=== PATIENT | female | born 1975 | race Caucasian/White ===

== ENCOUNTER 2017-11-14 19:40 | Observation (INO) | payer BC ==
--- NOTE | 2017-11-14 19:43 | EDM.PDOC ---
ED HPI GENERAL MEDICAL PROBLEM - General Stated Complaint: VOMITING, DEHYDRATED, SHAKES Time Seen by Provider: 11/14/17 19:42 Source of Information: Reports: Patient History Limitations: Reports: No Limitations - History of Present Illness INITIAL COMMENTS - FREE TEXT/NARRATIVE: HISTORY AND PHYSICAL: History of present illness: 42-year-old female presenting emergency department with 2 days of nausea and vomiting with past medical history of hypertension. Patient states around noon yesterday she began to have nausea with associated vomiting. Reports multiple episodes of vomiting yesterday as well as today. States there is no blood in it but it is bile colored. She has had associated chills without fever some mild shortness of breath and a sore throat with epigastric pain/heartburn. Tonight she came to the emergency department primarily because she was feeling more dizzy and blurry and has been unable to keep fluids down. She's been trying to taken Gatorade as well as water but states that after she has 1 drink she becomes nauseous and throws it back up. States that she had roast yesterday as well as her and she is the only nail. She works at home and denies any foreign travel or changes in diet. Past medical history of hypertension with no new medications. Has an allergy to penicillins which she states is hives. 2100- CBC unremarkable other than increased hemoglobin most likely secondary to hemoconcentration from dehydration. CMP did reveal hyponatremia of 130 with a bicarbonate low at 7.3 and acute kidney injury with a creatinine as 2.5. 0045- Repeat BMP showed improved h hyponatremia of 135, bicarbonate 9.2, creatinine 1.8. Patient also received Phenergan secondary to continued nausea with vomiting. Lactate pending as well as UA Review of systems: As per history of present illness and below otherwise all systems reviewed and negative. Past medical history: As per history of present illness and as reviewed below otherwise noncontributory. Surgical history: As per history of present illness and as reviewed below otherwise noncontributory. Social history: No reported history of drug or alcohol abuse. Family history: As per history of present illness and as reviewed below otherwise noncontributory. Physical exam: HEENT: Atraumatic, normocephalic, pupils reactive, negative for conjunctival pallor or scleral icterus, mucous membranes moist, throat clear, neck supple, nontender, trachea midline. Lungs: Clear to auscultation, breath sounds equal bilaterally, chest nontender. Heart: S1S2, regular, negative for clicks, rubs, or JVD. Abdomen: Soft, nondistended, mild upper right quadrant and moderate epigastric tenderness on patient. Negative for masses or hepatosplenomegaly. Negative for costovertebral tenderness. Pelvis: Stable nontender. Genitourinary: Deferred. Rectal: Deferred. Extremities: Atraumatic, negative for cords or calf pain. Neurovascular unremarkable. Neuro: Awake, alert, oriented. Cranial nerves II through XII unremarkable. Cerebellum unremarkable. Motor and sensory unremarkable throughout. Exam nonfocal. Diagnostics: CBC, CMP, H. pylori Therapeutics: 1 L normal saline 3, Zofran 8 mg IV 1, GI cocktail, 80 mg Protonix IV 1, Phenergan 25 mg IM 1 Impression: Nausea and vomiting Hyponatremia-130 Acute kidney injury- 2.6 Cr Plan: Please see above H&P. After 3 L of normal saline labs had improved however patient still is hyponatremic with a sodium of 135. Acute kidney injury most likely secondary to volume depletion/dehydration had improved with a creatinine of 1.8 however patient's bicarbonate improved but only to 9.2. Secondary to all the above I did call Dr. Fitch, hospitalist, who accepted the patient for observation status for acute kidney injury, hyponatremia, and moderate dehydration. Abdominal Pain Score (Numeric/FACES): 5 - Related Data Allergies Allergy/AdvReac Type Severity Reaction Status Date / Time Penicillins Allergy Hives Verified 11/14/17 19:57 Home Meds: Home Meds Unknown Bp Med 11/14/17 [History] ED ROS GENERAL - Review of Systems Review Of Systems: ROS reveals no pertinent complaints other than HPI. ED EXAM, GENERAL - Physical Exam Exam: See Below Course - Vital Signs Last Recorded V/S: Last Vital Signs Temp 96.9 F 11/14/17 19:54 Pulse 102 H 11/15/17 00:06 Resp 16 11/15/17 00:06 BP 129/80 11/15/17 00:06 Pulse Ox 97 11/15/17 00:06 - Orders/Labs/Meds Orders: Active Orders 24 hr Category Date Time Status CULTURE URINE [RM] Stat Lab 11/15/17 00:49 Ordered LACTATE WITH REFLEX [BG] Stat Lab 11/15/17 00:48 Ordered UA W/MICROSCOPIC [URIN] Stat Lab 11/15/17 00:49 Ordered Sodium Chloride 0.9% [Normal Saline] 1,000 ml Med 11/15/17 00:09 Active IV .Bolus Medication Orders Sodium Chloride (Normal Saline) 1,000 mls @ 999 mls/hr IV .Bolus ONE Stop: 11/15/17 01:09 Last Admin: 11/15/17 00:29 Dose: 999 mls/hr Labs: Laboratory Tests 11/14/17 11/14/17 11/14/17 Range/Units 20:08 20:08 20:08 WBC 9.99 (4.0-11.0) K/uL RBC 4.88 (4.30-5.90) M/uL Hgb 17.2 H (12.0-16.0) g/dL Hct 52.5 H (36.0-46.0) % MCV 107.6 H (80.0-98.0) fL MCH 35.2 H (27.0-32.0) pg MCHC 32.8 (31.0-37.0) g/dL RDW Std Deviation 52.5 (28.0-62.0) fl RDW Coeff of Ilya 13 (11.0-15.0) % Plt Count 191 (150-400) K/uL MPV 9.80 (7.40-12.00) fL Neut % (Auto) 90.4 H (48.0-80.0) % Lymph % (Auto) 5.2 L (16.0-40.0) % Nicholas % (Auto) 4.2 (0.0-15.0) % Eos % (Auto) 0.0 (0.0-7.0) % Baso % (Auto) 0.2 (0.0-1.5) % Neut # (Auto) 9.0 H (1.4-5.7) K/uL Lymph # (Auto) 0.5 L (0.6-2.4) K/uL Nicholas # (Auto) 0.4 (0.0-0.8) K/uL Eos # (Auto) 0.0 (0.0-0.7) K/uL Baso # (Auto) 0.0 (0.0-0.1) K/uL Nucleated RBC % 0.0 /100WBC Nucleated RBCs # 0 K/uL Sodium 130 L (136-145) mmol/L Potassium 5.4 H (3.5-5.1) mmol/L Chloride 84 L (98-107) mmol/L Carbon Dioxide 7.3 L (21.0-32.0) mmol/L BUN 26 H (7.0-18.0) mg/dL Creatinine 2.5 H (0.6-1.0) mg/dL Est Cr Clr Drug Dosing 24.50 mL/min Estimated GFR (MDRD) 21.2 ml/min Glucose 279 H (74-106) mg/dL Calcium 9.5 (8.5-10.1) mg/dL Total Bilirubin 0.8 (0.2-1.0) mg/dL AST 113 H (15-37) IU/L ALT 123 H (14-63) IU/L Alkaline Phosphatase 94 (46-116) U/L Total Protein 10.1 H (6.4-8.2) g/dL Albumin 5.4 H (3.4-5.0) g/dL Globulin 4.7 H (2.0-3.5) g/dL Albumin/Globulin Ratio 1.2 L (1.3-2.8) H. pylori IgG Antibody NEGATIVE (NEG) 11/14/17 Range/Units 23:32 WBC (4.0-11.0) K/uL RBC (4.30-5.90) M/uL Hgb (12.0-16.0) g/dL Hct (36.0-46.0) % MCV (80.0-98.0) fL MCH (27.0-32.0) pg MCHC (31.0-37.0) g/dL RDW Std Deviation (28.0-62.0) fl RDW Coeff of Ilya (11.0-15.0) % Plt Count (150-400) K/uL MPV (7.40-12.00) fL Neut % (Auto) (48.0-80.0) % Lymph % (Auto) (16.0-40.0) % Nicholas % (Auto) (0.0-15.0) % Eos % (Auto) (0.0-7.0) % Baso % (Auto) (0.0-1.5) % Neut # (Auto) (1.4-5.7) K/uL Lymph # (Auto) (0.6-2.4) K/uL Nicholas # (Auto) (0.0-0.8) K/uL Eos # (Auto) (0.0-0.7) K/uL Baso # (Auto) (0.0-0.1) K/uL Nucleated RBC % /100WBC Nucleated RBCs # K/uL Sodium 135 L (136-145) mmol/L Potassium 4.9 (3.5-5.1) mmol/L Chloride 98 (98-107) mmol/L Carbon Dioxide 9.2 L (21.0-32.0) mmol/L BUN 22 H (7.0-18.0) mg/dL Creatinine 1.8 H (0.6-1.0) mg/dL Est Cr Clr Drug Dosing 34.02 mL/min Estimated GFR (MDRD) 31.0 ml/min Glucose 197 H (74-106) mg/dL Calcium 7.2 L (8.5-10.1) mg/dL Total Bilirubin (0.2-1.0) mg/dL AST (15-37) IU/L ALT (14-63) IU/L Alkaline Phosphatase (46-116) U/L Total Protein (6.4-8.2) g/dL Albumin (3.4-5.0) g/dL Globulin (2.0-3.5) g/dL Albumin/Globulin Ratio (1.3-2.8) H. pylori IgG Antibody (NEG) Meds: Medications Generic Name Dose Route Start Last Admin Trade Name Freq PRN Reason Stop Dose Admin Sodium Chloride 1,000 mls @ 999 mls/hr 11/15/17 00:09 11/15/17 00:29 Normal Saline IV 11/15/17 01:09 999 mls/hr .Bolus ONE Administration Discontinued Medications Generic Name Dose Route Start Last Admin Trade Name Freq PRN Reason Stop Dose Admin Al Hydroxide/Mg Hydroxide 15 0 ml 11/14/17 20:03 11/14/17 20:21 ml/ Lidocaine HCl 5 ml PO 11/14/17 20:04 15 each ONETIME ONE Administration Sodium Chloride 1,000 mls @ 999 mls/hr 11/14/17 20:02 11/14/17 20:20 Normal Saline IV 11/14/17 21:02 999 mls/hr STAT ONE Administration Sodium Chloride 1,000 mls @ 999 mls/hr 11/14/17 20:57 11/14/17 21:03 Normal Saline IV 11/14/17 21:57 999 mls/hr .BOLUS ONE Administration Ondansetron HCl 8 mg 11/14/17 20:02 11/14/17 20:20 Zofran IVPUSH 11/14/17 20:03 8 mg ONETIME ONE Administration Pantoprazole Sodium 80 mg 11/14/17 21:22 11/14/17 21:55 Protonix Iv IVPUSH 11/14/17 21:23 80 mg .BOLUS ONE Administration Promethazine HCl 25 mg 11/14/17 21:53 11/14/17 22:06 Phenergan IM 11/14/17 21:54 25 mg ONETIME ONE Administration Departure - Departure Time of Disposition: 00:59 Disposition: Admitted As Inpatient 67 Condition: Fair Clinical Impression: Hyponatremia, Moderate dehydration Acute kidney failure Qualifiers: Acute renal failure type: unspecified Qualified Code(s): N17.9 - Acute kidney failure, unspecified Nausea and vomiting Qualifiers: Vomiting type: unspecified Vomiting Intractability: non-intractable Qualified Code(s): R11.2 - Nausea with vomiting, unspecified - Discharge Information Referrals: Segun Jameson MD [Primary Care Provider] - - My Orders Last 24 Hours: My Active Orders 11/15/17 00:09 Sodium Chloride 0.9% [Normal Saline] 1,000 ml IV .Bolus 11/15/17 00:48 LACTATE WITH REFLEX [BG] Stat 11/15/17 00:49 CULTURE URINE [RM] Stat UA W/MICROSCOPIC [URIN] Stat - Assessment/Plan Last 24 Hours: My Active Orders 11/15/17 00:09 Sodium Chloride 0.9% [Normal Saline] 1,000 ml IV .Bolus 11/15/17 00:48 LACTATE WITH REFLEX [BG] Stat 11/15/17 00:49 CULTURE URINE [RM] Stat UA W/MICROSCOPIC [URIN] Stat
[2017-11-14] MEDS ORDERED: Ondansetron 4 MG/2 ML SDV IVPUSH ONE (20:02)
[2017-11-14] MEDS ORDERED: Sodium Chloride 0.9% 1,000 ML IV ONE ×2 (20:02→20:57)
[2017-11-14] MEDS ORDERED: Alum Hydrox/Mag Hydrox/Simeth 15 ML, Lidocaine 2% 5 ML PO ONE ×2 (20:03)
[2017-11-14] MEDS ORDERED: Pantoprazole 40 MG Vial IVPUSH ONE (21:22)
[2017-11-14] MEDS ORDERED: Promethazine 25 MG/ML SDV IM ONE (21:53)
[2017-11-15] MEDS ORDERED: Sodium Chloride 0.9% 1,000 ML IV ONE (00:09)
[2017-11-15] MEDS ORDERED: Calcium Carbonate 500 MG Tab.Chew PO PRN (01:43)
[2017-11-15] MEDS ORDERED: Ondansetron 4 MG/2 ML SDV IVPUSH PRN (01:43)
[2017-11-15] MEDS: Sodium Chloride 0.9% 1,000 ML IV SCH ×2 (02:22→10:03)
--- NOTE | 2017-11-15 12:20 | PCM.HP ---
H&P History of Present Illness - General Date of Service: 11/15/17 Admit Problem/Dx: Admission Diagnosis/Problem Admission Diagnosis/Problem Hyponatremia - History of Present Illness Initial Comments - Free Text/Narative: 42 yo female who presents with three day history of nausea and poor oral intake. She wasn't able to keep anything down. She had a 15 hour history of vomiting. She denies any abdominal pain, diarrhea, or blood in vomit or stool. She was seen in the ED and noted to be hyponatremic with sodium of 130 and a creatinine of 2.5. She denies any recent alcohol use. Abdominal Pain Score (Numeric/FACES): 5 - Related Data Allergies/Adverse Reactions: Allergies Allergy/AdvReac Type Severity Reaction Status Date / Time Penicillins Allergy Hives Verified 11/14/17 19:57 Home Medications: Home Meds Unknown Bp Med 11/14/17 [History] Omeprazole Magnesium [Prilosec Otc] 20 mg PO DAILY #30 tablet. 11/15/17 [Rx] Past Medical History Cardiovascular History: Reports: Hypertension - Infectious Disease History Infectious Disease History: Reports: Chicken Pox Social & Family History - Tobacco Use Smoking Status *Q: Current Every Day Smoker Years of Tobacco use: 20 Packs/Tins Daily: 1 Used Tobacco, but Quit: No Second Hand Smoke Exposure: Yes - Caffeine Use Caffeine Use: Reports: Coffee, Energy Drinks - Recreational Drug Use Recreational Drug Use: No H&P Review of Systems - Review of Systems: Review Of Systems: ROS reveals no pertinent complaints other than HPI. Exam - Vital Signs Vital Signs: Last Vital Signs Temp 37.3 C 11/15/17 08:00 Pulse 84 11/15/17 08:00 Resp 16 11/15/17 08:00 BP 141/78 H 11/15/17 08:00 Pulse Ox 98 11/15/17 08:00 Weight: 62.006 kg - Exam General: Alert, Oriented HEENT: Posterior Pharynx Clear Neck: Supple, Trachea Midline Lungs: Clear to Auscultation, Normal Respiratory Effort Cardiovascular: Regular Rate, Regular Rhythm GI/Abdominal Exam: Normal Bowel Sounds, Soft, Non-Tender Extremities: Non-Tender, No Pedal Edema Skin: Warm, Dry, Intact Neurological: Normal Gait. No: Focal Deficit - Patient Data Lab Results Last 24 hrs: Laboratory Results - last 24 hr 11/14/17 11/14/17 11/14/17 Range/Units 20:08 20:08 20:08 WBC 9.99 (4.0-11.0) K/uL RBC 4.88 (4.30-5.90) M/uL Hgb 17.2 H (12.0-16.0) g/dL Hct 52.5 H (36.0-46.0) % MCV 107.6 H (80.0-98.0) fL MCH 35.2 H (27.0-32.0) pg MCHC 32.8 (31.0-37.0) g/dL RDW Std Deviation 52.5 (28.0-62.0) fl RDW Coeff of Ilya 13 (11.0-15.0) % Plt Count 191 (150-400) K/uL MPV 9.80 (7.40-12.00) fL Neut % (Auto) 90.4 H (48.0-80.0) % Lymph % (Auto) 5.2 L (16.0-40.0) % Fa[place]ner % (Auto) 4.2 (0.0-15.0) % Eos % (Auto) 0.0 (0.0-7.0) % Baso % (Auto) 0.2 (0.0-1.5) % Neut # (Auto) 9.0 H (1.4-5.7) K/uL Lymph # (Auto) 0.5 L (0.6-2.4) K/uL Faulkner # (Auto) 0.4 (0.0-0.8) K/uL Eos # (Auto) 0.0 (0.0-0.7) K/uL Baso # (Auto) 0.0 (0.0-0.1) K/uL Add Manual Diff Neutrophils % (Manual) (48.0-80.0) % Band Neutrophils % % Lymphocytes % (Manual) (16.0-40.0) % Monocytes % (Manual) (0.0-15.0) % Nucleated RBC % 0.0 /100WBC Absolute Seg Neuts (1.4-5.7) Band Neutrophils # Lymphocytes # (Manual) (0.6-2.4) Monocytes # (Manual) (0.0-0.8) Nucleated RBCs # 0 K/uL Lactate (0.20-2.00) mmol/L Sodium 130 L (136-145) mmol/L Potassium 5.4 H (3.5-5.1) mmol/L Chloride 84 L (98-107) mmol/L Carbon Dioxide 7.3 L (21.0-32.0) mmol/L BUN 26 H (7.0-18.0) mg/dL Creatinine 2.5 H (0.6-1.0) mg/dL Est Cr Clr Drug Dosing 24.50 mL/min Estimated GFR (MDRD) 21.2 ml/min Glucose 279 H (74-106) mg/dL Calcium 9.5 (8.5-10.1) mg/dL Total Bilirubin 0.8 (0.2-1.0) mg/dL AST 113 H (15-37) IU/L ALT 123 H (14-63) IU/L Alkaline Phosphatase 94 (46-116) U/L Total Protein 10.1 H (6.4-8.2) g/dL Albumin 5.4 H (3.4-5.0) g/dL Globulin 4.7 H (2.0-3.5) g/dL Albumin/Globulin Ratio 1.2 L (1.3-2.8) Urine Color Urine Appearance Urine pH (5.0-8.0) Ur Specific [place] (1.001-1.035) Urine Protein (NEGATIVE) mg/dL Urine Glucose (UA) (NEGATIVE) mg/dL Urine Ketones (NEGATIVE) mg/dL Urine Occult Blood (NEGATIVE) Urine Nitrite (NEGATIVE) Urine Bilirubin (NEGATIVE) Urine Ictotest Urine Urobilinogen (<2.0) EU/dL Ur Leukocyte Esterase (NEGATIVE) Urine RBC (0-2/HPF) Urine WBC (0-5/HPF) Ur Epithelial Cells (NONE-FEW) Urine Bacteria (NEGATIVE) Urine Mucus (NONE-MOD) H. pylori IgG Antibody NEGATIVE (NEG) 11/14/17 11/15/17 11/15/17 Range/Units 23:32 01:28 03:42 WBC (4.0-11.0) K/uL RBC (4.30-5.90) M/uL Hgb (12.0-16.0) g/dL Hct (36.0-46.0) % MCV (80.0-98.0) fL MCH (27.0-32.0) pg MCHC (31.0-37.0) g/dL RDW Std Deviation (28.0-62.0) fl RDW Coeff of Ilya (11.0-15.0) % Plt Count (150-400) K/uL MPV (7.40-12.00) fL Neut % (Auto) (48.0-80.0) % Lymph % (Auto) (16.0-40.0) % Faulkner % (Auto) (0.0-15.0) % Eos % (Auto) (0.0-7.0) % Baso % (Auto) (0.0-1.5) % Neut # (Auto) (1.4-5.7) K/uL Lymph # (Auto) (0.6-2.4) K/uL Faulkner # (Auto) (0.0-0.8) K/uL Eos # (Auto) (0.0-0.7) K/uL Baso # (Auto) (0.0-0.1) K/uL Add Manual Diff Neutrophils % (Manual) (48.0-80.0) % Band Neutrophils % % Lymphocytes % (Manual) (16.0-40.0) % Monocytes % (Manual) (0.0-15.0) % Nucleated RBC % /100WBC Absolute Seg Neuts (1.4-5.7) Band Neutrophils # Lymphocytes # (Manual) (0.6-2.4) Monocytes # (Manual) (0.0-0.8) Nucleated RBCs # K/uL Lactate 0.9 (0.20-2.00) mmol/L Sodium 135 L (136-145) mmol/L Potassium 4.9 (3.5-5.1) mmol/L Chloride 98 (98-107) mmol/L Carbon Dioxide 9.2 L (21.0-32.0) mmol/L BUN 22 H (7.0-18.0) mg/dL Creatinine 1.8 H (0.6-1.0) mg/dL Est Cr Clr Drug Dosing 34.02 mL/min Estimated GFR (MDRD) 31.0 ml/min Glucose 197 H (74-106) mg/dL Calcium 7.2 L (8.5-10.1) mg/dL Total Bilirubin (0.2-1.0) mg/dL AST (15-37) IU/L ALT (14-63) IU/L Alkaline Phosphatase (46-116) U/L Total Protein (6.4-8.2) g/dL Albumin (3.4-5.0) g/dL Globulin (2.0-3.5) g/dL Albumin/Globulin Ratio (1.3-2.8) Urine Color YELLOW Urine Appearance CLEAR Urine pH 6.0 (5.0-8.0) Ur Specific [place] 1.025 (1.001-1.035) Urine Protein TRACE (NEGATIVE) mg/dL Urine Glucose (UA) NEGATIVE (NEGATIVE) mg/dL Urine Ketones >=80 (NEGATIVE) mg/dL Urine Occult Blood MODERATE (NEGATIVE) Urine Nitrite NEGATIVE (NEGATIVE) Urine Bilirubin MODERATE H (NEGATIVE) Urine Ictotest NEGATIVE Urine Urobilinogen 0.2 (<2.0) EU/dL Ur Leukocyte Esterase NEGATIVE (NEGATIVE) Urine RBC 0-1 (0-2/HPF) Urine WBC 0-2 (0-5/HPF) Ur Epithelial Cells FEW (NONE-FEW) Urine Bacteria FEW (NEGATIVE) Urine Mucus LIGHT (NONE-MOD) H. pylori IgG Antibody (NEG) 11/15/17 11/15/17 Range/Units 05:46 05:46 WBC 7.73 (4.0-11.0) K/uL RBC 3.54 L (4.30-5.90) M/uL Hgb 12.2 (12.0-16.0) g/dL Hct 37.3 (36.0-46.0) % MCV 105.4 H (80.0-98.0) fL MCH 34.5 H (27.0-32.0) pg MCHC 32.7 (31.0-37.0) g/dL RDW Std Deviation 50.7 (28.0-62.0) fl RDW Coeff of Ilya 13 (11.0-15.0) % Plt Count 138 L (150-400) K/uL MPV 9.50 (7.40-12.00) fL Neut % (Auto) (48.0-80.0) % Lymph % (Auto) (16.0-40.0) % Fa[place]ner % (Auto) (0.0-15.0) % Eos % (Auto) (0.0-7.0) % Baso % (Auto) (0.0-1.5) % Neut # (Auto) (1.4-5.7) K/uL Lymph # (Auto) (0.6-2.4) K/uL Fa[place]ner # (Auto) (0.0-0.8) K/uL Eos # (Auto) (0.0-0.7) K/uL Baso # (Auto) (0.0-0.1) K/uL Add Manual Diff YES Neutrophils % (Manual) 71 (48.0-80.0) % Band Neutrophils % 1 % Lymphocytes % (Manual) 18 (16.0-40.0) % Monocytes % (Manual) 10 (0.0-15.0) % Nucleated RBC % 0.0 /100WBC Absolute Seg Neuts 5.5 (1.4-5.7) Band Neutrophils # 0.1 Lymphocytes # (Manual) 1.4 (0.6-2.4) Monocytes # (Manual) 0.8 (0.0-0.8) Nucleated RBCs # 0 K/uL Lactate (0.20-2.00) mmol/L Sodium 131 L (136-145) mmol/L Potassium 4.8 (3.5-5.1) mmol/L Chloride 100 (98-107) mmol/L Carbon Dioxide 14.1 L (21.0-32.0) mmol/L BUN 14 (7.0-18.0) mg/dL Creatinine 1.3 H (0.6-1.0) mg/dL Est Cr Clr Drug Dosing 47.11 mL/min Estimated GFR (MDRD) 45.1 ml/min Glucose 145 H (74-106) mg/dL Calcium 7.3 L (8.5-10.1) mg/dL Total Bilirubin (0.2-1.0) mg/dL AST (15-37) IU/L ALT (14-63) IU/L Alkaline Phosphatase (46-116) U/L Total Protein (6.4-8.2) g/dL Albumin (3.4-5.0) g/dL Globulin (2.0-3.5) g/dL Albumin/Globulin Ratio (1.3-2.8) Urine Color Urine Appearance Urine pH (5.0-8.0) Ur Specific [place] (1.001-1.035) Urine Protein (NEGATIVE) mg/dL Urine Glucose (UA) (NEGATIVE) mg/dL Urine Ketones (NEGATIVE) mg/dL Urine Occult Blood (NEGATIVE) Urine Nitrite (NEGATIVE) Urine Bilirubin (NEGATIVE) Urine Ictotest Urine Urobilinogen (<2.0) EU/dL Ur Leukocyte Esterase (NEGATIVE) Urine RBC (0-2/HPF) Urine WBC (0-5/HPF) Ur Epithelial Cells (NONE-FEW) Urine Bacteria (NEGATIVE) Urine Mucus (NONE-MOD) H. pylori IgG Antibody (NEG) Result Diagrams: 11/15/17 05:46 11/15/17 05:46 Problem List Initiated/Reviewed/Updated: Yes Orders Last 24hrs: Active Orders 24 hr Category Date Time Status Admission Status [Patient Status] [ADT] Stat ADT 11/15/17 01:40 Active Ready for Discharge [RC] PER UNIT ROUTINE Care 11/15/17 12:15 Ordered Regular Diet [DIET] Diet 11/15/17 Breakfast Active CULTURE URINE [RM] Stat Lab 11/15/17 03:42 Ordered UA W/MICROSCOPIC [URIN] Stat Lab 11/15/17 03:42 Ordered Calcium Carbonate [Tums] Med 11/15/17 01:43 Active 500 mg PO TID PRN Ondansetron [Zofran] Med 11/15/17 01:43 Active 4 mg IVPUSH Q4H PRN Sodium Chloride 0.9% [Normal Saline] 1,000 ml Med 11/15/17 01:45 Active IV ASDIRECTED Medication Orders Calcium Carbonate/Glycine (Tums) 500 mg PO TID PRN PRN Reason: Indigestion Last Admin: 11/15/17 03:44 Dose: 500 mg Sodium Chloride (Normal Saline) 1,000 mls @ 125 mls/hr IV ASDIRECTED JON Last Admin: 11/15/17 10:03 Dose: 125 mls/hr Infusion: 11/15/17 10:03 Dose: 125 mls/hr Admin: 11/15/17 02:22 Dose: 125 mls/hr Ondansetron HCl (Zofran) 4 mg IVPUSH Q4H PRN PRN Reason: Nausea/Vomiting Assessment/Plan Comment:: 42 yo female admitted for acute gastritis. She was treated with IV fluids and prn antiemetics. This morning she is feeling better, and her nausea has resolved. She is tolerating an oral diet and is requesting discharge. She was discharged home to have follow up with [facility].
== END 2017-11-15 13:55 | disposition home or self-care (01) ==
LOC: MW.ED 19:40 → MW.MS 11-15 01:40
PROVIDERS: ADMIT Internal Medicine; ATTEND Internal Medicine
DX: K29.00 Acute gastritis without bleeding (principal); I10 Essential (primary) hypertension; F17.210 Nicotine dependence, cigarettes, uncomplicated; E87.1 Hypo-osmolality and hyponatremia; E86.0 Dehydration; N17.9 Acute kidney failure, unspecified; Z79.899 Other long term (current) drug therapy; Z88.0 Allergy status to penicillin
CPT/HCPCS: 36415; 80048; 80053; 81001; 83605; 85025; 86677; 87086; 96361; 96372; 96374; 96375; 99285; A9270; C9113; J2405; J2550; J7040

== ENCOUNTER 2019-08-18 07:39 | Emergency (ER) | payer BC ==
--- NOTE | 2019-08-18 07:56 | EDM.PDOC ---
ED HPI GENERAL MEDICAL PROBLEM - General Chief Complaint: ENT Problem Stated Complaint: COUGH Time Seen by Provider: 08/18/19 07:50 Source of Information: Reports: Patient History Limitations: Reports: No Limitations - History of Present Illness INITIAL COMMENTS - FREE TEXT/NARRATIVE: This 43 year old female is presented to the ED with a chief complaint of coughing up yellow type sputum for two months. She complains of nausea and vomiting and can't keep any thing down for three days. She states that her mouth feels dry. She complains of generalized weakness. She complains of mild SOB. She denies any chest pain. She denies any other symptoms at this time. The patient states that she has not been able to hold down her lisinopril for two days due to vomiting. Onset: Gradual Duration: Chronic, Getting Worse (in that she is not able to hold down fluids or eat for three days.) Headache Pain Score (Numeric/FACES): 3 - Related Data Allergies Allergy/AdvReac Type Severity Reaction Status Date / Time Penicillins Allergy Hives Verified 08/18/19 08:02 Home Meds: Home Meds Omeprazole Magnesium [Prilosec Otc] 20 mg PO DAILY #30 tablet. 11/15/17 [Rx] Albuterol Sulfate [Albuterol Sulfate Hfa] 8.5 gm IH ASDIRECTED PRN 4 Days #1 hfa.aer.ad 08/18/19 [Rx] Benzonatate 100 mg PO BID PRN 6 Days #12 capsule 08/18/19 [Rx] Lisinopril [Zestril] 10 mg PO DAILY 08/18/19 [History] Ondansetron [Zofran ODT] 4 mg PO Q6H PRN 5 Days #20 tab.dis 08/18/19 [Rx] Past Medical History Cardiovascular History: Reports: Hypertension - Infectious Disease History Infectious Disease History: Reports: Chicken Pox Social & Family History - Caffeine Use Caffeine Use: Reports: Coffee, Energy Drinks ED ROS GENERAL - Review of Systems Review Of Systems: See Below Constitutional: Reports: Weakness, Decreased Appetite HEENT: Reports: Throat Pain (mild sore throat) Respiratory: Reports: Cough, Sputum (clear to yellow sputum for two months). Denies: Wheezing Cardiovascular: Reports: No Symptoms Endocrine: Reports: No Symptoms GI/Abdominal: Reports: Anorexia, Nausea, Vomiting. Denies: Black Stool, Bloody Stool, Diarrhea : Reports: No Symptoms Musculoskeletal: Reports: No Symptoms Skin: Reports: No Symptoms Neurological: Reports: No Symptoms ED EXAM, GENERAL - Physical Exam Exam: See Below Exam Limited By: No Limitations General Appearance: Alert, WD/WN, No Apparent Distress Eye Exam: Bilateral Eye: Normal Inspection, PERRL Ears: Normal External Exam, Normal Canal, Hearing Grossly Normal, Normal TMs Nose: Normal Inspection, Normal Mucosa, No Blood Throat/Mouth: Normal Inspection (except for dryness of the oral mucosa), Normal Voice, No Airway Compromise Head: Atraumatic, Normocephalic Neck: Normal Inspection, Supple Respiratory/Chest: No Respiratory Distress, Lungs Clear, Normal Breath Sounds, Chest Non-Tender Cardiovascular: Normal Peripheral Pulses, No Edema, No Gallop, No JVD, No Murmur , Tachycardia Peripheral Pulses: 3+: Radial (L), Radial (R), Dorsalis Pedis (L), Dorsalis Pedis (R) GI/Abdominal: Normal Bowel Sounds, Soft, Non-Tender, No Organomegaly, No Distention, No Abnormal Bruit, No Mass (Female) Exam: Deferred Rectal (Female) Exam: Deferred Back Exam: Normal Inspection Extremities: Normal Inspection, Normal Range of Motion Neurological: Alert, Oriented (times 4), Normal Reflexes, No Motor/Sensory Deficits Psychiatric: Normal Affect, Normal Mood Skin Exam: Warm, Dry, Normal Color, No Rash, Other (Tenting noted of the skin of the dorsum of the hands and skin of the forearm which is consistent with mild to moderate dehydration.) Lymphatic: No Adenopathy Course - Vital Signs Text/Narrative:: Review of chest X-ray both PA and lateral views are negative for acute pathology. I will hold the Labetalol for now in that her blood pressure is coming down as she is getting a normal saline bolus. Her pulse rate at 108 will also decrease with fluid replacement. The patient is doing much better after 2 liters of normal saline but although her pulse rate has lowered, it's still 100 beats/minutes. She has not urinated yet as well. She is still fluid behind and will receive a 3rd liter of normal saline. She states that she has received up to 6 liters of normal saline for dehydration. Last Recorded V/S: Last Vital Signs Temp 96.8 F L 08/18/19 07:59 Pulse 103 H 08/18/19 11:24 Resp 18 08/18/19 11:24 BP 159/111 H 08/18/19 11:24 Pulse Ox 99 08/18/19 11:24 - Orders/Labs/Meds Orders: Active Orders 24 hr Category Date Time Status Isolation [COMM] Routine Oth 08/18/19 08:04 Active Labs: Laboratory Tests 08/18/19 08/18/19 Range/Units 08:15 08:15 WBC 8.79 (4.0-11.0) K/uL RBC 4.28 L (4.30-5.90) M/uL Hgb 15.1 (12.0-16.0) g/dL Hct 46.4 H (36.0-46.0) % MCV 108.4 H (80.0-98.0) fL MCH 35.3 H (27.0-32.0) pg MCHC 32.5 (31.0-37.0) g/dL RDW Std Deviation 62.5 H (28.0-62.0) fl RDW Coeff of Ilya 16 H (11.0-15.0) % Plt Count 161 (150-400) K/uL MPV 9.60 (7.40-12.00) fL Neut % (Auto) 90.3 H (48.0-80.0) % Lymph % (Auto) 4.1 L (16.0-40.0) % [place] % (Auto) 5.5 (0.0-15.0) % Eos % (Auto) 0.0 (0.0-7.0) % Baso % (Auto) 0.1 (0.0-1.5) % Neut # (Auto) 7.9 H (1.4-5.7) K/uL Lymph # (Auto) 0.4 L (0.6-2.4) K/uL [place] # (Auto) 0.5 (0.0-0.8) K/uL Eos # (Auto) 0.0 (0.0-0.7) K/uL Baso # (Auto) 0.0 (0.0-0.1) K/uL Nucleated RBC % 0.0 /100WBC Nucleated RBCs # 0 K/uL Sodium 134 L (136-145) mmol/L Potassium 4.3 (3.5-5.1) mmol/L Chloride 89 L (98-107) mmol/L Carbon Dioxide 9.9 L (21.0-32.0) mmol/L BUN 10 (7.0-18.0) mg/dL Creatinine 1.4 H (0.6-1.0) mg/dL Est Cr Clr Drug Dosing 43.30 mL/min Estimated GFR (MDRD) 41.2 ml/min Glucose 249 H (74-106) mg/dL Calcium 8.7 (8.5-10.1) mg/dL Total Bilirubin 0.9 (0.2-1.0) mg/dL AST 189 H (15-37) IU/L ALT 75 H (14-63) IU/L Alkaline Phosphatase 109 (46-116) U/L Total Protein 9.7 H (6.4-8.2) g/dL Albumin 5.2 H (3.4-5.0) g/dL Globulin 4.5 H (2.6-4.0) g/dL Albumin/Globulin Ratio 1.2 (0.9-1.6) Meds: Medications Discontinued Medications Generic Name Dose Route Start Last Admin Trade Name Freq PRN Reason Stop Dose Admin Benzonatate 200 mg 08/18/19 09:20 08/18/19 09:47 Tessalon Perles PO 08/18/19 09:21 200 mg ONETIME ONE Administration Sodium Chloride 1,000 mls @ 1,000 mls/hr 08/18/19 08:03 08/18/19 08:11 Normal Saline IV 08/18/19 09:02 1,000 mls/hr .Bolus ONE Administration Sodium Chloride 1,000 mls @ 1,000 mls/hr 08/18/19 08:54 08/18/19 09:46 Normal Saline IV 08/18/19 09:53 1,000 mls/hr .Bolus ONE Administration Sodium Chloride 1,000 mls @ 1,000 mls/hr 08/18/19 10:59 08/18/19 11:22 Normal Saline IV 08/18/19 11:58 1,000 mls/hr .Bolus ONE Administration Labetalol HCl 20 mg 08/18/19 08:12 Normodyne IVPUSH 08/18/19 08:13 ONETIME ONE Protocol Omeprazole 20 mg 08/18/19 10:02 08/18/19 10:13 Omeprazole PO 08/18/19 10:03 20 mg ONETIME ONE Administration Ondansetron HCl 4 mg 08/18/19 08:06 08/18/19 08:11 Zofran IVPUSH 08/18/19 08:07 4 mg ONETIME ONE Administration Ondansetron HCl 4 mg 08/18/19 11:21 08/18/19 11:22 Zofran IVPUSH 08/18/19 11:22 4 mg ONETIME ONE Administration Ondansetron HCl Confirm 08/18/19 11:21 08/18/19 11:32 Zofran Administered 08/18/19 11:22 Not Given Dose 4 mg .ROUTE .STK-MED ONE Departure - Departure Time of Disposition: 12:46 Disposition: Home, Self-Care 01 Condition: Good Clinical Impression: Dehydration, Hypertension, essential Bronchitis, chronic Qualifiers: Chronic bronchitis type: unspecified Qualified Code(s): J42 - Unspecified chronic bronchitis - Discharge Information *PRESCRIPTION DRUG MONITORING PROGRAM REVIEWED*: Yes *COPY OF PRESCRIPTION DRUG MONITORING REPORT IN PATIENT BRIANNA: Yes Prescriptions: Albuterol Sulfate [Albuterol Sulfate Hfa] 8.5 gm IH ASDIRECTED PRN 4 Days #1 hfa.aer.ad PRN Reason: Dyspnea Benzonatate 100 mg PO BID PRN 6 Days #12 capsule PRN Reason: Cough Ondansetron [Zofran ODT] 4 mg PO Q6H PRN 5 Days #20 tab.dis PRN Reason: Nausea/Vomiting Instructions: Dehydration, Adult, [id number], Hypertension, Adult, Easy-to- Read, Chronic Bronchitis, Adult Referrals: Waqar Isidro MD [Primary Care Provider] - Forms: ED Department Discharge Additional Instructions: Take all medications as directed. Follow up with your PCP in the next two to four days. Drink plenty of clear liquids for the next 24-48 hours. Rest for the next 24 hours. Return to the ED if your condition gets worse or should you have any questions or concerns. The following information is given to patients seen in the emergency department who are being discharged to home. This information is to outline your options for follow-up care. We provide all patients seen in our emergency department with a follow-up referral. The need for follow-up, as well as the timing and circumstances, are variable depending upon the specifics of your emergency department visit. If you don't have a primary care physician on staff, we will provide you with a referral. We always advise you to contact your personal physician following an emergency department visit to inform them of the circumstance of the visit and for follow-up with them and/or the need for any referrals to a consulting specialist. The emergency department will also refer you to a specialist when appropriate. This referral assures that you have the opportunity for follow-up care with a specialist. All of these measure are taken in an effort to provide you with optimal care, which includes your follow-up. Under all circumstances we always encourage you to contact your private physician who remains a resource for coordinating your care. When calling for follow-up care, please make the office aware that this follow-up is from your recent emergency room visit. If for any reason you are refused follow-up, please contact the Emergency Department at and asked to speak to the emergency department charge nurse. Sepsis Event Note - Focused Exam Vital Signs: Vital Signs Temp Pulse Resp BP Pulse Ox 08/18/19 11:24 103 H 18 159/111 H 99 08/18/19 09:45 97 18 157/94 H 100 08/18/19 08:40 104 H 20 159/97 H 99 08/18/19 07:59 96.8 F L 108 H 18 182/109 H 100 Date Exam was Performed: 08/18/19 Time Exam was Performed: 12:46 - My Orders Last 24 Hours: My Active Orders 08/18/19 08:04 Isolation [COMM] Routine - Assessment/Plan Last 24 Hours: My Active Orders 08/18/19 08:04 Isolation [COMM] Routine
[2019-08-18] MEDS ORDERED: Sodium Chloride 0.9% 1,000 ML IV ONE ×3 (08:03→10:59)
[2019-08-18] MEDS ORDERED: Ondansetron 4 MG/2 ML SDV IVPUSH ONE ×2 (08:06→11:21)
[2019-08-18] MEDS: Labetalol 100 MG/20 ML MDV IVPUSH ONE ×2 (08:15→13:01)
[2019-08-18 08:45] LABS: CARBON DIOXIDE,CO2 9.9 mmol/L (21.0-32.0); POTASSIUM,K 4.3 mmol/L (3.5-5.1)
--- NOTE | 2019-08-18 08:48 | CR ---
Chest: 2 views of the chest were obtained. Comparison: No prior chest imaging is available. Heart size and mediastinum are normal. Lungs are clear with no acute parenchymal change. Disc space narrowing noted within the mid thoracic spine which appears old and is most likely developmental. No acute osseous finding is seen. Impression: 1. Nothing acute is appreciated on 2 view chest x-ray. Diagnostic code #2 This report was dictated in MDT
[2019-08-18] MEDS ORDERED: Benzonatate 100 MG Cap PO ONE (09:20)
[2019-08-18] MEDS ORDERED: Omeprazole 20 MG Cap.CR PO ONE (10:02)
[2019-08-18] MEDS ORDERED: Ondansetron 4 MG/2 ML SDV ONE (11:21)
== END 2019-08-18 13:01 | disposition home or self-care (01) ==
LOC: MW.ED 07:39
DX: J42 Unspecified chronic bronchitis (principal); E86.0 Dehydration; I10 Essential (primary) hypertension; Z88.0 Allergy status to penicillin; Z79.899 Other long term (current) drug therapy
CPT/HCPCS: 36415; 71046; 80053; 85025; 87804; 96361; 96374; 96376; 99284; A9270; J2405; J7030; J3490

== ENCOUNTER 2019-10-18 03:55 | Inpatient (IN) | payer BC ==
[2019-10-18] MEDS ORDERED: Sodium Chloride 0.9% 2.5 ML Syringe FLUSH PRN (04:12)
[2019-10-18] MEDS ORDERED: Ondansetron 4 MG/2 ML SDV IVPUSH ONE ×2 (04:12→05:18)
[2019-10-18] MEDS ORDERED: Sodium Chloride 0.9% 10 ML Syringe FLUSH PRN (04:12)
[2019-10-18] MEDS ORDERED: Sodium Chloride 0.9% 10 ML SDV IV PRN (04:12)
[2019-10-18] MEDS ORDERED: Lactated Ringers 1,000 ML IV ONE ×2 (04:12→04:26)
[2019-10-18] MEDS ORDERED: Alum Hydrox/Mag Hydrox/Simeth 15 ML, Lidocaine 2% 5 ML PO ONE ×4 (04:14→06:45)
--- NOTE | 2019-10-18 04:15 | EDM.PDOC ---
<Varun Hurt - Last Filed: 10/18/19 07:05> ED HPI GENERAL MEDICAL PROBLEM - General Chief Complaint: Gastrointestinal Problem Stated Complaint: NAUSEATED, DEHYDRATED, VOMITING, WEAK Time Seen by Provider: 10/18/19 04:00 Source of Information: Reports: Patient History Limitations: Reports: No Limitations - History of Present Illness INITIAL COMMENTS - FREE TEXT/NARRATIVE: 44-year-old female with a past medical history of multiple sclerosis (not on any MS specific medications including immunosuppression or steroids), hypertension, and GERD presenting with nausea, vomiting, back pain, and generalized weakness. Patient reports a 2-day history of incessant nausea and vomiting. At least 5 episodes of nonbloody emesis since midnight tonight. Denies hematemesis. Also reports feeling extremely dehydrated and very thirsty. Denies any fever, chills, chest discomfort, shortness of breath, neck stiffness, rash, abdominal pain, dysuria, urinary frequency, hematuria, recent travel, or sick contacts. No personal history of diabetes. back area Pain Score (Numeric/FACES): 3 - Related Data Allergies Allergy/AdvReac Type Severity Reaction Status Date / Time Penicillins Allergy Hives Verified 10/18/19 04:07 Home Meds: Home Meds Omeprazole Magnesium [Prilosec Otc] 20 mg PO DAILY #30 tablet. 11/15/17 [Rx] Ondansetron [Zofran ODT] 4 mg PO Q6H PRN 5 Days #20 tab.dis 08/18/19 [Rx] lisinopriL [Zestril] 10 mg PO DAILY 08/18/19 [History] Past Medical History Cardiovascular History: Reports: Hypertension Gastrointestinal History: Reports: GERD Neurological History: Reports: MS - Infectious Disease History Infectious Disease History: Reports: Chicken Pox - Past Surgical History Neurological Surgical History: Reports: None Social & Family History - Family History Family Medical History: Noncontributory - Caffeine Use Caffeine Use: Reports: Coffee, Energy Drinks ED ROS GENERAL - Review of Systems Review Of Systems: See Below Constitutional: Denies: Fever, Chills HEENT: Reports: No Symptoms Respiratory: Denies: Shortness of Breath Cardiovascular: Denies: Chest Pain Endocrine: Reports: Fatigue GI/Abdominal: Reports: Nausea, Vomiting. Denies: Abdominal Pain, Black Stool, Bloody Stool, Constipation, Diarrhea, Distension, Hematemesis, Hematochezia, Melena : Denies: Dysuria, Flank Pain, Hematuria, Urgency Musculoskeletal: Reports: Back Pain. Denies: Neck Pain Skin: Denies: Rash Neurological: Denies: Headache, Numbness Psychiatric: Reports: No Symptoms Hematologic/Lymphatic: Reports: No Symptoms Immunologic: Reports: No Symptoms ED EXAM, GI/ABD - Physical Exam Exam: See Below Text/Narrative:: Vital signs reviewed. Nursing notes reviewed. Constitutional: Awake, alert, non-distressed. Head: Normocephalic, atraumatic. Eyes: EOMI, conjunctiva normal, no discharge, no scleral icterus. Ears, Nose, Throat: External ears and nose normal, tacky oral mucosa. Cardiovascular: Tachycardic, 2+ radial pulse, capillary refill less than 2 seconds. Pulmonary: normal work of breathing, no accessory muscle use. Abdomen/GI: Soft, nontender, nondistended, no guarding or rigidity, no masses. No CVA tenderness Musculoskeletal: No deformities, mild bilateral low back pain Integumentary: Appropriate color for ethnicity, warm, dry, no pallor or jaundice , no rash. Neurologic: Alert, answering questions appropriately, normal speech, no facial droop, moving all extremities well. Psychiatric: Appropriate mood and affect, normal thought process. EKG INTERPRETATION EKG Interpretation Comments: 12-Lead ECG Interpretation Acquired: 4:35 AM Rhythm: Sinus tachycardia Rate: 112/min [place]: Normal Intervals: Normal Ectopy: None Ischemic Changes: None apparent RV Strain: No obvious RV strain pattern. ST Segments/T-Waves: No notable changes Interpretation: Unremarkable Course - Vital Signs Text/Narrative:: 44-year-old female presenting with intractable vomiting along with polydipsia and lower back pain. On arrival noted to be tachycardic to 120 and tachypneic, appears shaky and uncomfortable. IV access established and labs were sent. Started on IV fluids and IV Zofran. Blood glucose is elevated at 389. Venous blood gas returned showing a severe metabolic acidosis with pH 6.96 and a bicarb of 6. This is concerning for new onset diabetes, with diabetic ketoacidosis. Metabolic panel returned showing potassium of 5.8, anion gap of 36. Creatinine mildly elevated at 1.5. Hemoglobin A1c is curiously low at only 4.9. Phosphorus elevated at 5.8. Mildly elevated AST, ALT, and alkaline phosphatase. Lipase is within normal limits. CBC shows a leukocytosis with a neutrophilic predominance. Acetaminophen, salicylates, and ethyl alcohol are all negative. test is negative. 5:13 AM: Patient is on her second liter of lactated Ringer's and we are starting an insulin infusion. I have ordered IV vancomycin and ceftriaxone. Will plan for close blood glucose monitoring. Patient will need to be admitted to the intensive care unit. Were waiting for urinalysis and a chest x-ray. 5:48 AM: Insulin infusion is ongoing. We have given 2 L of lactated Ringer's and she is now on a maintenance infusion at 250 mL/h. IV ceftriaxone was given. Chest x-ray is clear. We are still waiting for urinalysis. I did speak with the [place] poison control system regarding the case. I am concerned about potential toxic etiology given the normal hemoglobin A1c. Unfortunately we cannot obtain a serum osmolarity here, this is a send out lab. Poison control recommends rechecking a metabolic panel including pH, bicarbonate, and anion gap in a short while to ensure that these numbers are improving. If not, they did recommend a loading dose of fomepizole. 6:36 AM: Glucose is improved to 277. Urinalysis returned showing greater than 80 ketones, 250 glucose, small blood, moderate bilirubin. We are going to recheck her BMP, venous blood gas, and her lactate. 6:51 AM: Blood glucose improved to 225. We are going to start a D5 normal saline infusion at 150 mils per hour and decrease the insulin infusion to 3 units/h. I discussed the case with Dr. Brenden Fitch the hospitalist who agrees to admit to the ICU. We are going to hold the patient down here until her repeat VBG, BMP, and lactate result. The patient remained in the emergency department through the end of my shift. We are waiting for a repeat chemistry panel. Signed out in person to Dr. Sevilla. Last Recorded V/S: Last Vital Signs Temp 97.4 F 10/18/19 08:18 Pulse 109 H 10/18/19 10:29 Resp 18 10/18/19 09:00 BP 128/80 10/18/19 10:29 Pulse Ox 98 10/18/19 10:29 - Orders/Labs/Meds Orders: Active Orders 24 hr Category Date Time Status Blood Glucose Check, Bedside [] ONETIME Care 10/18/19 04:16 Active Blood Glucose Check, Bedside [] ONETIME Care 10/18/19 06:05 Active Cardiac Monitoring [RC] . DIRECTED Care 10/18/19 04:12 Active Communication Order [] STAT Care 10/18/19 04:27 Active EKG 12 Lead [EKG Documentation Completion] [] STAT Care 10/18/19 04:12 Active Pulse Oximetry [] ASDIRECTED Care 10/18/19 04:12 Active B-HYDROXYBUTYRATE [REF] Stat Lab 10/18/19 05:00 Stop Req CULTURE BLOOD [] Stat Lab 10/18/19 04:48 Results CULTURE BLOOD [] Stat Lab 10/18/19 05:00 Received OSMOLALITY - SERUM [REF] Stat Lab 10/18/19 04:25 Received Dextrose 5%-0.9% NaCl [Dextrose 5%-Normal Saline] 1,000 Med 10/18/19 06:45 Active ml IV ASDIRECTED Insulin Regular, Human [NovoLIN R] 100 unit Med 10/18/19 05:00 Active Sodium Chloride 0.9% [Normal Saline] 99 ml IV TITRATE Lactated Ringers [Ringers, Lactated] 1,000 ml Med 10/18/19 05:15 Active IV ASDIRECTED Sodium Chloride 0.9% [Normal Saline] Med 10/18/19 04:12 Active 10 ml IV ASDIRECTED PRN Sodium Chloride 0.9% [Saline Flush] Med 10/18/19 04:12 Active 10 ml FLUSH ASDIRECTED PRN Sodium Chloride 0.9% [Saline Flush] Med 10/18/19 04:12 Active 2.5 ml FLUSH ASDIRECTED PRN Blood Culture x2 Reflex Set [OM.PC] Stat Oth 10/18/19 04:27 Ordered Blood Culture x2 Reflex Set [OM.PC] Stat Oth 10/18/19 04:59 Ordered Peripheral IV Insertion Adult [OM.PC] Stat Ot 10/18/19 04:12 Ordered Resuscitation Status Stat Resus Stat 10/18/19 04:27 Ordered Medication Orders Insulin Human Regular 100 unit (/ Sodium Chloride) 100 mls @ 6 mls/hr IV TITRATE JON; Protocol Last Titration: 10/18/19 06:48 Dose: 3 unit/hr, 3 mls/hr Admin: 10/18/19 05:27 Dose: 6 unit/hr, 6 mls/hr Lactated Ringer's (Ringers, Lactated) 1,000 mls @ 250 mls/hr IV ASDIRECTED JON Last Admin: 10/18/19 05:38 Dose: 250 mls/hr Dextrose/Sodium Chloride (Dextrose 5%-Normal Saline) 1,000 mls @ 150 mls/hr IV ASDIRECTED JON Last Admin: 10/18/19 06:49 Dose: 150 mls/hr Sodium Chloride (Saline Flush) 10 ml FLUSH ASDIRECTED PRN PRN Reason: Keep Vein Open Last Admin: 10/18/19 08:51 Dose: 10 ml Sodium Chloride (Saline Flush) 2.5 ml FLUSH ASDIRECTED PRN PRN Reason: Keep Vein Open Last Admin: 10/18/19 08:51 Dose: 2.5 ml Sodium Chloride (Normal Saline) 10 ml IV ASDIRECTED PRN PRN Reason: IV Use Labs: Laboratory Tests 10/18/19 10/18/19 10/18/19 Range/Units 04:15 04:15 04:15 WBC (4.0-11.0) K/uL RBC (4.30-5.90) M/uL Hgb (12.0-16.0) g/dL Hct (36.0-46.0) % MCV (80.0-98.0) fL MCH (27.0-32.0) pg MCHC (31.0-37.0) g/dL RDW Std Deviation (28.0-62.0) fl RDW Coeff of Ilya (11.0-15.0) % Plt Count (150-400) K/uL MPV (7.40-12.00) fL Neut % (Auto) (48.0-80.0) % Lymph % (Auto) (16.0-40.0) % [place] % (Auto) (0.0-15.0) % Eos % (Auto) (0.0-7.0) % Baso % (Auto) (0.0-1.5) % Neut # (Auto) (1.4-5.7) K/uL Lymph # (Auto) (0.6-2.4) K/uL [place] # (Auto) (0.0-0.8) K/uL Eos # (Auto) (0.0-0.7) K/uL Baso # (Auto) (0.0-0.1) K/uL Nucleated RBC % /100WBC Nucleated RBCs # K/uL VBG pH 6.96 L (7.31-7.41) VBG pCO2 24 L (35-45) mmHG VBG pO2 41 H (30-40) mmHG VBG HCO3 5 L (22-30) mEq/L VBG Total CO2 6 L (41-51) mmol/L VBG Base Excess -25.5 L (-3.0-3.0) Lactate 3.3 H* (0.20-2.00) mmol/L Sodium 135 L (136-145) mmol/L Potassium 5.8 H (3.5-5.1) mmol/L Chloride 94 L (98-107) mmol/L Carbon Dioxide 7.2 L (21.0-32.0) mmol/L BUN 16 (7.0-18.0) mg/dL Creatinine 1.5 H (0.6-1.0) mg/dL Est Cr Clr Drug Dosing 40.00 mL/min Estimated GFR (MDRD) 37.9 ml/min Glucose 389 H (74-106) mg/dL POC Glucose (60-110) mg/dL Hemoglobin A1c (4.5-6.2) % Calcium 8.5 (8.5-10.1) mg/dL Phosphorus (2.6-4.7) mg/dL Magnesium (1.8-2.4) mg/dL Total Bilirubin 0.8 (0.2-1.0) mg/dL AST 140 H (15-37) IU/L ALT 92 H (14-63) IU/L Alkaline Phosphatase 118 H (46-116) U/L Troponin I < 0.050 (0.000-0.056) ng/mL Total Protein 9.9 H (6.4-8.2) g/dL Albumin 5.1 H (3.4-5.0) g/dL Globulin 4.8 H (2.6-4.0) g/dL Albumin/Globulin Ratio 1.1 (0.9-1.6) Lipase 200 (73-393) U/L HCG, Qual (NEG) Urine Color Urine Appearance Urine pH (5.0-8.0) Ur Specific [place] (1.001-1.035) Urine Protein (NEGATIVE) mg/dL Urine Glucose (UA) (NEGATIVE) mg/dL Urine Ketones (NEGATIVE) mg/dL Urine Occult Blood (NEGATIVE) Urine Nitrite (NEGATIVE) Urine Bilirubin (NEGATIVE) Urine Ictotest Urine Urobilinogen (<2.0) EU/dL Ur Leukocyte Esterase (NEGATIVE) U Hyaline Cast (Auto) (0-2/LPF) Urine RBC (0-2/HPF) Urine WBC (0-5/HPF) Ur Epithelial Cells (NONE-FEW) Urine Bacteria (NEGATIVE) Urine Mucus (NONE-MOD) Salicylates (0-20) mg/dL Urine Opiates Screen (NEGATIVE) Ur Oxycodone Screen (NEGATIVE) Urine Methadone Screen (NEGATIVE) Acetaminophen ug/mL Ur Barbiturates Screen (NEGATIVE) Ur Phencyclidine Scrn (NEGATIVE) Ur Amphetamine Screen (NEGATIVE) U Methamphetamines Scrn (NEGATIVE) U Benzodiazepines Scrn (NEGATIVE) U Cocaine Metab Screen (NEGATIVE) U Marijuana (THC) Screen (NEGATIVE) Ethyl Alcohol mg/dL Ketones (NEG) 10/18/19 10/18/19 10/18/19 Range/Units 04:15 04:15 04:15 WBC (4.0-11.0) K/uL RBC (4.30-5.90) M/uL Hgb (12.0-16.0) g/dL Hct (36.0-46.0) % MCV (80.0-98.0) fL MCH (27.0-32.0) pg MCHC (31.0-37.0) g/dL RDW Std Deviation (28.0-62.0) fl RDW Coeff of Ilya (11.0-15.0) % Plt Count (150-400) K/uL MPV (7.40-12.00) fL Neut % (Auto) (48.0-80.0) % Lymph % (Auto) (16.0-40.0) % [place] % (Auto) (0.0-15.0) % Eos % (Auto) (0.0-7.0) % Baso % (Auto) (0.0-1.5) % Neut # (Auto) (1.4-5.7) K/uL Lymph # (Auto) (0.6-2.4) K/uL [place] # (Auto) (0.0-0.8) K/uL Eos # (Auto) (0.0-0.7) K/uL Baso # (Auto) (0.0-0.1) K/uL Nucleated RBC % /100WBC Nucleated RBCs # K/uL VBG pH (7.31-7.41) VBG pCO2 (35-45) mmHG VBG pO2 (30-40) mmHG VBG HCO3 (22-30) mEq/L VBG Total CO2 (41-51) mmol/L VBG Base Excess (-3.0-3.0) Lactate (0.20-2.00) mmol/L Sodium (136-145) mmol/L Potassium (3.5-5.1) mmol/L Chloride (98-107) mmol/L Carbon Dioxide (21.0-32.0) mmol/L BUN (7.0-18.0) mg/dL Creatinine (0.6-1.0) mg/dL Est Cr Clr Drug Dosing mL/min Estimated GFR (MDRD) ml/min Glucose (74-106) mg/dL POC Glucose (60-110) mg/dL Hemoglobin A1c 4.9 (4.5-6.2) % Calcium (8.5-10.1) mg/dL Phosphorus 5.8 H (2.6-4.7) mg/dL Magnesium 2.2 (1.8-2.4) mg/dL Total Bilirubin (0.2-1.0) mg/dL AST (15-37) IU/L ALT (14-63) IU/L Alkaline Phosphatase (46-116) U/L Troponin I (0.000-0.056) ng/mL Total Protein (6.4-8.2) g/dL Albumin (3.4-5.0) g/dL Globulin (2.6-4.0) g/dL Albumin/Globulin Ratio (0.9-1.6) Lipase (73-393) U/L HCG, Qual NEGATIVE (NEG) Urine Color Urine Appearance Urine pH (5.0-8.0) Ur Specific [place] (1.001-1.035) Urine Protein (NEGATIVE) mg/dL Urine Glucose (UA) (NEGATIVE) mg/dL Urine Ketones (NEGATIVE) mg/dL Urine Occult Blood (NEGATIVE) Urine Nitrite (NEGATIVE) Urine Bilirubin (NEGATIVE) Urine Ictotest Urine Urobilinogen (<2.0) EU/dL Ur Leukocyte Esterase (NEGATIVE) U Hyaline Cast (Auto) (0-2/LPF) Urine RBC (0-2/HPF) Urine WBC (0-5/HPF) Ur Epithelial Cells (NONE-FEW) Urine Bacteria (NEGATIVE) Urine Mucus (NONE-MOD) Salicylates (0-20) mg/dL Urine Opiates Screen (NEGATIVE) Ur Oxycodone Screen (NEGATIVE) Urine Methadone Screen (NEGATIVE) Acetaminophen ug/mL Ur Barbiturates Screen (NEGATIVE) Ur Phencyclidine Scrn (NEGATIVE) Ur Amphetamine Screen (NEGATIVE) U Methamphetamines Scrn (NEGATIVE) U Benzodiazepines Scrn (NEGATIVE) U Cocaine Metab Screen (NEGATIVE) U Marijuana (THC) Screen (NEGATIVE) Ethyl Alcohol mg/dL Ketones (NEG) 10/18/19 10/18/19 10/18/19 Range/Units 04:24 04:25 04:25 WBC 12.76 H (4.0-11.0) K/uL RBC 3.84 L (4.30-5.90) M/uL Hgb 14.3 (12.0-16.0) g/dL Hct 46.4 H (36.0-46.0) % MCV 120.8 H (80.0-98.0) fL MCH 37.2 H (27.0-32.0) pg MCHC 30.8 L (31.0-37.0) g/dL RDW Std Deviation 71.3 H (28.0-62.0) fl RDW Coeff of Ilya 16 H (11.0-15.0) % Plt Count 196 (150-400) K/uL MPV 10.00 (7.40-12.00) fL Neut % (Auto) 88.4 H (48.0-80.0) % Lymph % (Auto) 2.7 L (16.0-40.0) % [place] % (Auto) 8.7 (0.0-15.0) % Eos % (Auto) 0.0 (0.0-7.0) % Baso % (Auto) 0.2 (0.0-1.5) % Neut # (Auto) 11.3 H (1.4-5.7) K/uL Lymph # (Auto) 0.3 L (0.6-2.4) K/uL [place] # (Auto) 1.1 H (0.0-0.8) K/uL Eos # (Auto) 0.0 (0.0-0.7) K/uL Baso # (Auto) 0.0 (0.0-0.1) K/uL Nucleated RBC % 0.5 /100WBC Nucleated RBCs # 0 K/uL VBG pH (7.31-7.41) VBG pCO2 (35-45) mmHG VBG pO2 (30-40) mmHG VBG HCO3 (22-30) mEq/L VBG Total CO2 (41-51) mmol/L VBG Base Excess (-3.0-3.0) Lactate (0.20-2.00) mmol/L Sodium (136-145) mmol/L Potassium (3.5-5.1) mmol/L Chloride (98-107) mmol/L Carbon Dioxide (21.0-32.0) mmol/L BUN (7.0-18.0) mg/dL Creatinine (0.6-1.0) mg/dL Est Cr Clr Drug Dosing mL/min Estimated GFR (MDRD) ml/min Glucose (74-106) mg/dL POC Glucose 361 H (60-110) mg/dL Hemoglobin A1c (4.5-6.2) % Calcium (8.5-10.1) mg/dL Phosphorus (2.6-4.7) mg/dL Magnesium (1.8-2.4) mg/dL Total Bilirubin (0.2-1.0) mg/dL AST (15-37) IU/L ALT (14-63) IU/L Alkaline Phosphatase (46-116) U/L Troponin I (0.000-0.056) ng/mL Total Protein (6.4-8.2) g/dL Albumin (3.4-5.0) g/dL Globulin (2.6-4.0) g/dL Albumin/Globulin Ratio (0.9-1.6) Lipase (73-393) U/L HCG, Qual (NEG) Urine Color Urine Appearance Urine pH (5.0-8.0) Ur Specific [place] (1.001-1.035) Urine Protein (NEGATIVE) mg/dL Urine Glucose (UA) (NEGATIVE) mg/dL Urine Ketones (NEGATIVE) mg/dL Urine Occult Blood (NEGATIVE) Urine Nitrite (NEGATIVE) Urine Bilirubin (NEGATIVE) Urine Ictotest Urine Urobilinogen (<2.0) EU/dL Ur Leukocyte Esterase (NEGATIVE) U Hyaline Cast (Auto) (0-2/LPF) Urine RBC (0-2/HPF) Urine WBC (0-5/HPF) Ur Epithelial Cells (NONE-FEW) Urine Bacteria (NEGATIVE) Urine Mucus (NONE-MOD) Salicylates 5.0 (0-20) mg/dL Urine Opiates Screen (NEGATIVE) Ur Oxycodone Screen (NEGATIVE) Urine Methadone Screen (NEGATIVE) Acetaminophen <2.0 ug/mL Ur Barbiturates Screen (NEGATIVE) Ur Phencyclidine Scrn (NEGATIVE) Ur Amphetamine Screen (NEGATIVE) U Methamphetamines Scrn (NEGATIVE) U Benzodiazepines Scrn (NEGATIVE) U Cocaine Metab Screen (NEGATIVE) U Marijuana (THC) Screen (NEGATIVE) Ethyl Alcohol <3 mg/dL Ketones (NEG) 10/18/19 10/18/19 10/18/19 Range/Units 05:00 06:17 06:20 WBC (4.0-11.0) K/uL RBC (4.30-5.90) M/uL Hgb (12.0-16.0) g/dL Hct (36.0-46.0) % MCV (80.0-98.0) fL MCH (27.0-32.0) pg MCHC (31.0-37.0) g/dL RDW Std Deviation (28.0-62.0) fl RDW Coeff of Ilya (11.0-15.0) % Plt Count (150-400) K/uL MPV (7.40-12.00) fL Neut % (Auto) (48.0-80.0) % Lymph % (Auto) (16.0-40.0) % [place] % (Auto) (0.0-15.0) % Eos % (Auto) (0.0-7.0) % Baso % (Auto) (0.0-1.5) % Neut # (Auto) (1.4-5.7) K/uL Lymph # (Auto) (0.6-2.4) K/uL [place] # (Auto) (0.0-0.8) K/uL Eos # (Auto) (0.0-0.7) K/uL Baso # (Auto) (0.0-0.1) K/uL Nucleated RBC % /100WBC Nucleated RBCs # K/uL VBG pH (7.31-7.41) VBG pCO2 (35-45) mmHG VBG pO2 (30-40) mmHG VBG HCO3 (22-30) mEq/L VBG Total CO2 (41-51) mmol/L VBG Base Excess (-3.0-3.0) Lactate (0.20-2.00) mmol/L Sodium (136-145) mmol/L Potassium (3.5-5.1) mmol/L Chloride (98-107) mmol/L Carbon Dioxide (21.0-32.0) mmol/L BUN (7.0-18.0) mg/dL Creatinine (0.6-1.0) mg/dL Est Cr Clr Drug Dosing mL/min Estimated GFR (MDRD) ml/min Glucose (74-106) mg/dL POC Glucose 277 H (60-110) mg/dL Hemoglobin A1c (4.5-6.2) % Calcium (8.5-10.1) mg/dL Phosphorus (2.6-4.7) mg/dL Magnesium (1.8-2.4) mg/dL Total Bilirubin (0.2-1.0) mg/dL AST (15-37) IU/L ALT (14-63) IU/L Alkaline Phosphatase (46-116) U/L Troponin I (0.000-0.056) ng/mL Total Protein (6.4-8.2) g/dL Albumin (3.4-5.0) g/dL Globulin (2.6-4.0) g/dL Albumin/Globulin Ratio (0.9-1.6) Lipase (73-393) U/L HCG, Qual (NEG) Urine Color YELLOW Urine Appearance CLEAR Urine pH 5.5 (5.0-8.0) Ur Specific [place] >= 1.030 (1.001-1.035) Urine Protein 30 H (NEGATIVE) mg/dL Urine Glucose (UA) 250 H (NEGATIVE) mg/dL Urine Ketones >=80 (NEGATIVE) mg/dL Urine Occult Blood SMALL H (NEGATIVE) Urine Nitrite NEGATIVE (NEGATIVE) Urine Bilirubin MODERATE H (NEGATIVE) Urine Ictotest NEGATIVE Urine Urobilinogen 0.2 (<2.0) EU/dL Ur Leukocyte Esterase NEGATIVE (NEGATIVE) U Hyaline Cast (Auto) 0-2 (0-2/LPF) Urine RBC 0-2 (0-2/HPF) Urine WBC 0-2 (0-5/HPF) Ur Epithelial Cells FEW (NONE-FEW) Urine Bacteria FEW (NEGATIVE) Urine Mucus LIGHT (NONE-MOD) Salicylates (0-20) mg/dL Urine Opiates Screen (NEGATIVE) Ur Oxycodone Screen (NEGATIVE) Urine Methadone Screen (NEGATIVE) Acetaminophen ug/mL Ur Barbiturates Screen (NEGATIVE) Ur Phencyclidine Scrn (NEGATIVE) Ur Amphetamine Screen (NEGATIVE) U Methamphetamines Scrn (NEGATIVE) U Benzodiazepines Scrn (NEGATIVE) U Cocaine Metab Screen (NEGATIVE) U Marijuana (THC) Screen (NEGATIVE) Ethyl Alcohol mg/dL Ketones SMALL H (NEG) 10/18/19 10/18/19 10/18/19 Range/Units 06:20 06:42 06:44 WBC (4.0-11.0) K/uL RBC (4.30-5.90) M/uL Hgb (12.0-16.0) g/dL Hct (36.0-46.0) % MCV (80.0-98.0) fL MCH (27.0-32.0) pg MCHC (31.0-37.0) g/dL RDW Std Deviation (28.0-62.0) fl RDW Coeff of Ilya (11.0-15.0) % Plt Count (150-400) K/uL MPV (7.40-12.00) fL Neut % (Auto) (48.0-80.0) % Lymph % (Auto) (16.0-40.0) % [place] % (Auto) (0.0-15.0) % Eos % (Auto) (0.0-7.0) % Baso % (Auto) (0.0-1.5) % Neut # (Auto) (1.4-5.7) K/uL Lymph # (Auto) (0.6-2.4) K/uL [place] # (Auto) (0.0-0.8) K/uL Eos # (Auto) (0.0-0.7) K/uL Baso # (Auto) (0.0-0.1) K/uL Nucleated RBC % /100WBC Nucleated RBCs # K/uL VBG pH 7.17 L (7.31-7.41) VBG pCO2 22 L (35-45) mmHG VBG pO2 33 (30-40) mmHG VBG HCO3 8 L (22-30) mEq/L VBG Total CO2 8 L (41-51) mmol/L VBG Base Excess -18.5 L (-3.0-3.0) Lactate (0.20-2.00) mmol/L Sodium (136-145) mmol/L Potassium (3.5-5.1) mmol/L Chloride (98-107) mmol/L Carbon Dioxide (21.0-32.0) mmol/L BUN (7.0-18.0) mg/dL Creatinine (0.6-1.0) mg/dL Est Cr Clr Drug Dosing mL/min Estimated GFR (MDRD) ml/min Glucose (74-106) mg/dL POC Glucose 225 H (60-110) mg/dL Hemoglobin A1c (4.5-6.2) % Calcium (8.5-10.1) mg/dL Phosphorus (2.6-4.7) mg/dL Magnesium (1.8-2.4) mg/dL Total Bilirubin (0.2-1.0) mg/dL AST (15-37) IU/L ALT (14-63) IU/L Alkaline Phosphatase (46-116) U/L Troponin I (0.000-0.056) ng/mL Total Protein (6.4-8.2) g/dL Albumin (3.4-5.0) g/dL Globulin (2.6-4.0) g/dL Albumin/Globulin Ratio (0.9-1.6) Lipase (73-393) U/L HCG, Qual (NEG) Urine Color Urine Appearance Urine pH (5.0-8.0) Ur Specific [place] (1.001-1.035) Urine Protein (NEGATIVE) mg/dL Urine Glucose (UA) (NEGATIVE) mg/dL Urine Ketones (NEGATIVE) mg/dL Urine Occult Blood (NEGATIVE) Urine Nitrite (NEGATIVE) Urine Bilirubin (NEGATIVE) Urine Ictotest Urine Urobilinogen (<2.0) EU/dL Ur Leukocyte Esterase (NEGATIVE) U Hyaline Cast (Auto) (0-2/LPF) Urine RBC (0-2/HPF) Urine WBC (0-5/HPF) Ur Epithelial Cells (NONE-FEW) Urine Bacteria (NEGATIVE) Urine Mucus (NONE-MOD) Salicylates (0-20) mg/dL Urine Opiates Screen NEGATIVE (NEGATIVE) Ur Oxycodone Screen NEGATIVE (NEGATIVE) Urine Methadone Screen NEGATIVE (NEGATIVE) Acetaminophen ug/mL Ur Barbiturates Screen NEGATIVE (NEGATIVE) Ur Phencyclidine Scrn NEGATIVE (NEGATIVE) Ur Amphetamine Screen NEGATIVE (NEGATIVE) U Methamphetamines Scrn NEGATIVE (NEGATIVE) U Benzodiazepines Scrn NEGATIVE (NEGATIVE) U Cocaine Metab Screen NEGATIVE (NEGATIVE) U Marijuana (THC) Screen NEGATIVE (NEGATIVE) Ethyl Alcohol mg/dL Ketones (NEG) 10/18/19 10/18/19 Range/Units 06:44 06:44 WBC (4.0-11.0) K/uL RBC (4.30-5.90) M/uL Hgb (12.0-16.0) g/dL Hct (36.0-46.0) % MCV (80.0-98.0) fL MCH (27.0-32.0) pg MCHC (31.0-37.0) g/dL RDW Std Deviation (28.0-62.0) fl RDW Coeff of Ilya (11.0-15.0) % Plt Count (150-400) K/uL MPV (7.40-12.00) fL Neut % (Auto) (48.0-80.0) % Lymph % (Auto) (16.0-40.0) % Gibson % (Auto) (0.0-15.0) % Eos % (Auto) (0.0-7.0) % Baso % (Auto) (0.0-1.5) % Neut # (Auto) (1.4-5.7) K/uL Lymph # (Auto) (0.6-2.4) K/uL Gibson # (Auto) (0.0-0.8) K/uL Eos # (Auto) (0.0-0.7) K/uL Baso # (Auto) (0.0-0.1) K/uL Nucleated RBC % /100WBC Nucleated RBCs # K/uL VBG pH (7.31-7.41) VBG pCO2 (35-45) mmHG VBG pO2 (30-40) mmHG VBG HCO3 (22-30) mEq/L VBG Total CO2 (41-51) mmol/L VBG Base Excess (-3.0-3.0) Lactate 2.7 H* (0.20-2.00) mmol/L Sodium 136 (136-145) mmol/L Potassium 5.2 H (3.5-5.1) mmol/L Chloride 100 (98-107) mmol/L Carbon Dioxide 9.0 L (21.0-32.0) mmol/L BUN 14 (7.0-18.0) mg/dL Creatinine 1.3 H (0.6-1.0) mg/dL Est Cr Clr Drug Dosing 46.16 mL/min Estimated GFR (MDRD) 44.7 ml/min Glucose 220 H (74-106) mg/dL POC Glucose (60-110) mg/dL Hemoglobin A1c (4.5-6.2) % Calcium 8.2 L (8.5-10.1) mg/dL Phosphorus (2.6-4.7) mg/dL Magnesium (1.8-2.4) mg/dL Total Bilirubin (0.2-1.0) mg/dL AST (15-37) IU/L ALT (14-63) IU/L Alkaline Phosphatase (46-116) U/L Troponin I (0.000-0.056) ng/mL Total Protein (6.4-8.2) g/dL Albumin (3.4-5.0) g/dL Globulin (2.6-4.0) g/dL Albumin/Globulin Ratio (0.9-1.6) Lipase (73-393) U/L HCG, Qual (NEG) Urine Color Urine Appearance Urine pH (5.0-8.0) Ur Specific [place] (1.001-1.035) Urine Protein (NEGATIVE) mg/dL Urine Glucose (UA) (NEGATIVE) mg/dL Urine Ketones (NEGATIVE) mg/dL Urine Occult Blood (NEGATIVE) Urine Nitrite (NEGATIVE) Urine Bilirubin (NEGATIVE) Urine Ictotest Urine Urobilinogen (<2.0) EU/dL Ur Leukocyte Esterase (NEGATIVE) U Hyaline Cast (Auto) (0-2/LPF) Urine RBC (0-2/HPF) Urine WBC (0-5/HPF) Ur Epithelial Cells (NONE-FEW) Urine Bacteria (NEGATIVE) Urine Mucus (NONE-MOD) Salicylates (0-20) mg/dL Urine Opiates Screen (NEGATIVE) Ur Oxycodone Screen (NEGATIVE) Urine Methadone Screen (NEGATIVE) Acetaminophen ug/mL Ur Barbiturates Screen (NEGATIVE) Ur Phencyclidine Scrn (NEGATIVE) Ur Amphetamine Screen (NEGATIVE) U Methamphetamines Scrn (NEGATIVE) U Benzodiazepines Scrn (NEGATIVE) U Cocaine Metab Screen (NEGATIVE) U Marijuana (THC) Screen (NEGATIVE) Ethyl Alcohol mg/dL Ketones (NEG) Meds: Medications Generic Name Dose Route Start Last Admin Trade Name Freq PRN Reason Stop Dose Admin Insulin Human Regular 100 unit 100 mls @ 6 mls/hr 10/18/19 05:00 10/18/19 06: 48 / Sodium Chloride IV 3 unit/hr TITRATE JON 3 mls/hr Titration Protocol 6 UNIT/HR Lactated Ringer's 1,000 mls @ 250 mls/hr 10/18/19 05:15 10/18/19 05:38 Ringers, Lactated IV 250 mls/hr ASDIRECTED JON Administration Dextrose/Sodium Chloride 1,000 mls @ 150 mls/hr 10/18/19 06:45 10/18/19 06:49 Dextrose 5%-Normal Saline IV 150 mls/hr ASDIRECTED JON Administration Sodium Chloride 10 ml 10/18/19 04:12 10/18/19 08:51 Saline Flush FLUSH 10 ml ASDIRECTED PRN Administration Keep Vein Open Sodium Chloride 2.5 ml 10/18/19 04:12 10/18/19 08:51 Saline Flush FLUSH 2.5 ml ASDIRECTED PRN Administration Keep Vein Open Sodium Chloride 10 ml 10/18/19 04:12 Normal Saline IV ASDIRECTED PRN IV Use Discontinued Medications Generic Name Dose Route Start Last Admin Trade Name Freq PRN Reason Stop Dose Admin Al Hydroxide/Mg Hydroxide 15 0 ml 10/18/19 04:14 10/18/19 06:53 ml/ Lidocaine HCl 5 ml PO 10/18/19 04:15 Not Given ONETIME ONE Al Hydroxide/Mg Hydroxide 15 0 ml 10/18/19 06:45 10/18/19 08:51 ml/ Lidocaine HCl 5 ml PO 10/18/19 06:46 1 each ONETIME ONE Administration Lactated Ringer's 1,000 mls @ 1,000 mls/hr 10/18/19 04:12 10/18/19 05:12 Ringers, Lactated IV 10/18/19 05:11 1,000 mls/hr .BOLUS ONE Administration Lactated Ringer's 1,000 mls @ 1,000 mls/hr 10/18/19 04:26 10/18/19 05:13 Ringers, Lactated IV 10/18/19 05:25 1,000 mls/hr .BOLUS ONE Administration Vancomycin HCl 1,000 gm/ 250 mls @ 167 mls/hr 10/18/19 04:59 10/18/19 06:28 Dextrose/Water IV 10/18/19 06:28 Not Given ONETIME ONE Vancomycin HCl 1 gm/ Sodium 250 mls @ 166 mls/hr 10/18/19 05:11 10/18/19 06: 21 Chloride IV 10/18/19 06:41 166 mls/hr ONETIME ONE Administration Ceftriaxone Sodium/Dextrose 1 50 mls @ 100 mls/hr 10/18/19 05:15 10/18/19 05: 29 gm/ Premix IV 10/18/19 05:44 100 mls/hr ONETIME ONE Administration Sodium Chloride Confirm 10/18/19 05:18 10/18/19 06:08 Normal Saline (Advbag) Administered 10/18/19 05:19 Not Given Dose 250 mls @ as directed .ROUTE .STK-MED ONE Ceftriaxone Sodium/Dextrose Confirm 10/18/19 05:19 10/18/19 05:49 Rocephin In Dextrose,Iso-Osm 1 Gm/50 Ml Administered 10/18/19 05:20 Not Given Dose 50 mls @ as directed .ROUTE .STK-MED ONE Ondansetron HCl 4 mg 10/18/19 04:12 10/18/19 04:29 Zofran IVPUSH 10/18/19 04:13 4 mg ONETIME ONE Administration Ondansetron HCl 4 mg 10/18/19 05:18 10/18/19 05:30 Zofran IVPUSH 10/18/19 05:19 4 mg ONETIME ONE Administration Vancomycin HCl Confirm 10/18/19 05:18 10/18/19 05:48 Vancocin Administered 10/18/19 05:19 Not Given Dose 1 gm .ROUTE .STK-MED ONE Departure - Departure Disposition: Admitted As Inpatient 67 Clinical Impression: DKA (diabetic ketoacidoses) - Discharge Information Critical Care Note - Critical Care Note Total Time (mins): 60 Comments: Critical care time is exclusive of billable procedures and the time to perform these procedures. Critical care time was used to prevent vital system organ failure and deterioration. Critical care time includes bedside management and high-complexity decision making requiring my highest level of mental preparedness and attention. This includes reviewing the patient's chart and prior medical records, ordering and reviewing interpreting laboratory studies and imaging results, interpretation of vital signs and EKG, pulse oximetry, and discussion with the admitting team along with EMS and nursing staff. Severe anion gap metabolic acidosis requiring multiple IV medications. IV insulin infusion, IV antibiotics for possible sepsis, aggressive fluid resuscitation. Discussion with patient, family, nursing staff, and Poison Control Center. Serial labs, serial monitoring of vital signs. Admission to intensive care unit. Sepsis Event Note - Evaluation Sepsis Screening Result: No Definite Risk - Focused Exam Vital Signs: Vital Signs Temp Pulse Resp BP Pulse Ox 10/18/19 06:38 105 H 18 143/91 H 100 10/18/19 06:26 109 H 10/18/19 06:02 113 H 20 152/92 H 98 10/18/19 04:05 96.8 F L 132 H 24 H 142/78 H 99 Date Exam was Performed: 10/18/19 Time Exam was Performed: 07:05 <Miki Sevilla - Last Filed: 10/18/19 10:47> Departure - Departure Time of Disposition: 10:47 - Discharge Information *PRESCRIPTION DRUG MONITORING PROGRAM REVIEWED*: Not Applicable *COPY OF PRESCRIPTION DRUG MONITORING REPORT IN PATIENT BRIANNA: Not Applicable Sepsis Event Note - Focused Exam Date Exam was Performed: 10/18/19 Time Exam was Performed: 10:46
[2019-10-18 04:46] LABS: HEMOGLOBIN A1C 4.9 % (4.5-6.2)
[2019-10-18 04:52] LABS: BLOOD UREA NITROGEN,BUN 16 mg/dL (7.0-18.0); CARBON DIOXIDE,CO2 7.2 mmol/L (21.0-32.0); CHLORIDE,CL 94 mmol/L (98-107); GLUCOSE RANDOM 389 mg/dL (74-106); LIPASE 200 U/L (73-393); POTASSIUM,K 5.8 mmol/L (3.5-5.1); SODIUM,NA 135 mmol/L (136-145)
[2019-10-18] MEDS ORDERED: WATER IV ONE ×2 (04:59)
[2019-10-18] MEDS ORDERED: DEXTROSE 5% IV ONE ×2 (04:59)
[2019-10-18] MEDS ORDERED: VANCOMYCIN IV ONE ×2 (04:59)
[2019-10-18] MEDS ORDERED: cefTRIAXone 1 GM in Sodium Chloride 0.9% 100 ML IV ONE (04:59)
[2019-10-18 05:06] LABS: ACETAMINOPHEN <2.0 ug/mL
[2019-10-18] MEDS ORDERED: Lactated Ringers 1,000 ML IV SCH (05:15)
[2019-10-18] MEDS ORDERED: cefTRIAXone 1 GM in Premix Bag 1 BAG IV ONE (05:15)
[2019-10-18] MEDS ORDERED: Sodium Chloride 0.9% 250 ML ONE (05:18)
[2019-10-18] MEDS ORDERED: Vancomycin 1 GM AdvVial ONE (05:18)
--- NOTE | 2019-10-18 05:31 | CR ---
INDICATION: Tachypnea TECHNIQUE: Chest 1 views COMPARISON: Chest x-ray 08/18/2019 FINDINGS: Cardiovascular and mediastinum: Heart size and vasculature are normal in caliber and appearance. Lungs and pleural spaces: Lungs are clear. No sign of infiltrate or mass. No sign of pleural effusion. No pneumothorax. Bones and soft tissues: No significant findings. IMPRESSION: No acute findings and no significant changes from the prior exam. Dictated by Kishor Marie MD @ Oct 18 2019 5:29AM Signed by Dr. Kishor Marie @ Oct 18 2019 5:30AM
[2019-10-18] MEDS: Dextrose 5%-0.9% NaCl 1,000 ML IV SCH ×2 (06:49→13:30)
[2019-10-18 07:08] LABS: POTASSIUM,K 5.2 mmol/L (3.5-5.1)
[2019-10-18] MEDS ORDERED: Ondansetron 4 MG/2 ML SDV IVPUSH PRN (12:55)
--- NOTE | 2019-10-18 13:05 | PN ---
[facility] Physician - Brief Progress [id number]/04/2020 12:56[facility] Yanique Lopez, PINKY - THIERRY (JAMI) - THIERRY NICO JEFFERSONDate of Service 10/18/2019 12:56HPI/Violette nts of Note eICU admission [id number] female with past history of multiple sclerosis and HTN who presented to the hospital with generalized weakness and GI symptoms. Patient mentions that she is b een having intractable nausea vomiting over the last 48 hours and 5 episodes of emesis since midnight . She is currently not on any therapy for her MS and mentions she has had 1 previous episode of sign ificant diarrhea a couple years prior. In the ED patient was noted to be tachypneic and tachycardic in the 120s but otherwise stable vitals. Her initial lab work-up revealed severe combined anion gap/ non-gap metabolic acidosis with pH of 6.96 along with leukocytosis, lactate 2.7, elevated blood gluco se and PUNEET. Patient was started on insulin GTT and received approximately 2 L of IV fluids and was a dmitted to the ICU for closer monitoring. Of note patient was also given antibiotics empirically whi ch were discontinued given low suspicion of sepsis.Patient seen on camera laying flat in bed, does no t appear to be in any acute distress and seems comfortable. Does not have any work of breathingVital signs reviewed. HR 100, BP 125/78, sats 100%Labs/EMR/imaging reviewedSevere combined anion gap/non gap metabolic acidosis-Unclear etiology but likely multifactorial-First impression is DKA given hyper glycemia, urine ketones and initial symptoms of n/v and improvement of symptoms with correction of hy perglycemia and volume depletion. -Agree with w/u thus far with salicylates and tox screen which has come back negative. -Agree with holding Abx for now, as bacterial infectious process seems lower on t he differential. Possibly viral cause. If patient does have diarrhea will recommend checking for C Di ff. -If patient continues to have lower back pain, can consider doing CT abd/pelvis non-con to look f or intra-abdominal/retroperitoneal pathology. Serum proteins are also elevated and with the constella tion of symptoms of weakness, PUNEET and hyperproteinemia- MM can also be on differential, can consider sending an SPEP/UPEP if repeat proteins remain elevatedafter IVF resuscitation. DKA-Agree with Insuli n gtt for now and IVF transitioned to D5/NS currently. Recommend D5/0.45% as patient likely will get more acidotic with NS with higher chloride content-Anion gap remains open at 24 currently corrected albumin. Continue Insulin gtt until AG closes and patient can tolerate a PO diet. -Recommend repeatin g A1c to confirm low readAKI-Likely pre-renal in etiology. improving with IVFsDVT prophy-SCDs GI prop hy-PepcidThank you for allowing us to participate in the care of this patient.Interventions Major-Aci d-Base disturbance - evaluation and management, Acute renal failure - evaluation and management, Hype rglycemia - active titration of insulin therapy, Hypovolemia - evaluation and treatment with fluidsEl ectronically Signed by: JUAN ANTONIO MUHAMMAD) on 10/18/2019 13:04
--- NOTE | 2019-10-18 13:10 | PCM.HP.2 ---
H&P History of Present Illness - General Date of Service: 10/18/19 Admit Problem/Dx: Admission Diagnosis/Problem Admission Diagnosis/Problem Diabetic ketoacidosis - History of Present Illness Initial Comments - Free Text/Narative: 44 yo yo female with pmh of MS and hypertension who presents to the ED with complaint of nausea and vomiting for one day. She reports her symptoms started at 3 pm yesterday. She states she has not been able to keep anything down. She denies any fevers, chills, abdominal pain, or diarrhea. Patient denies any history of alcohol or drug use. She denies any aspirin or tylenol use. She has no history of diabetes or kidney disease. In the ED she was noted to have elevated blood glucose of 361, She was found to have a metabolic acidosis with a bicarb of 7, VBG ph of 6.96, lactic acid of 3.2, and creatinine of 1.5. Her HgA1c was 4.9. After receiving fluids in ED patient is feeling much better. back area Pain Score (Numeric/FACES): 3 - Related Data Allergies/Adverse Reactions: Allergies Allergy/AdvReac Type Severity Reaction Status Date / Time Penicillins Allergy Severe Hives Verified 10/18/19 13:22 sushi Allergy Hives Uncoded 10/18/19 16:13 Home Medications: Home Meds lisinopriL [Zestril] 10 mg PO DAILY 08/18/19 [History] Esomeprazole [NexIUM] 40 mg PO DAILY 10/18/19 [History] methocarbamoL [Methocarbamol] 1,500 mg PO TID PRN 10/18/19 [History] Past Medical History HEENT History: Reports: None Cardiovascular History: Reports: Hypertension Respiratory History: Reports: Other (See Below) Other Respiratory History: chronic bronchitis Gastrointestinal History: Reports: GERD Other Gastrointestinal History: Heartburn Genitourinary History: Reports: UTI, Recurrent SENIOR MATERIALS ANALYST History: Reports: None Musculoskeletal History: Reports: None Neurological History: Reports: MS, Other (See Below) 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, left hand, and left arm Psychiatric History: Reports: Anxiety Endocrine/Metabolic History: Reports: None Insulin Pump Model and Enrollment Specialist: None Hematologic History: Reports: None Immunologic History: Reports: None Oncologic (Cancer) History: Reports: None Dermatologic History: Reports: Psoriasis - Infectious Disease History Infectious Disease History: Reports: Chicken Pox - Past Surgical History Head Surgeries/Procedures: Reports: None Female Surgical History: Reports: None Neurological Surgical History: Reports: None Social & Family History - Family History Family Medical History: Noncontributory - Tobacco Use Smoking Status *Q: Current Some Day Smoker Years of Tobacco use: 20 Packs/Tins Daily: 0 - Caffeine Use Caffeine Use: Reports: None - Recreational Drug Use Recreational Drug Use: No H&P Review of Systems - Review of Systems: Review Of Systems: Comprehensive ROS is negative, except as noted in HPI. Exam - Exam Exam: See Below - Vital Signs Vital Signs: Last Vital Signs Temp 36.3 C 10/18/19 08:18 Pulse 109 H 10/18/19 10:29 Resp 18 10/18/19 09:00 BP 128/80 10/18/19 10:29 Pulse Ox 98 10/18/19 10:29 Weight: 57.1 kg - Exam General: Alert, Oriented HEENT: Mucosa Moist & [place] Lungs: Clear to Auscultation, Normal Respiratory Effort Cardiovascular: Regular Rate, Regular Rhythm GI/Abdominal Exam: Normal Bowel Sounds, Soft, Non-Tender Extremities: Non-Tender, No Pedal Edema Skin: Warm, Dry, Intact Neurological: No: Focal Deficit - Patient Data Lab Results Last 24 hrs: Laboratory Results - last 24 hr 10/18/19 10/18/19 10/18/19 Range/Units 04:15 04:15 04:15 WBC (4.0-11.0) K/uL RBC (4.30-5.90) M/uL Hgb (12.0-16.0) g/dL Hct (36.0-46.0) % MCV (80.0-98.0) fL MCH (27.0-32.0) pg MCHC (31.0-37.0) g/dL RDW Std Deviation (28.0-62.0) fl RDW Coeff of Ilya (11.0-15.0) % Plt Count (150-400) K/uL MPV (7.40-12.00) fL Neut % (Auto) (48.0-80.0) % Lymph % (Auto) (16.0-40.0) % Allen % (Auto) (0.0-15.0) % Eos % (Auto) (0.0-7.0) % Baso % (Auto) (0.0-1.5) % Neut # (Auto) (1.4-5.7) K/uL Lymph # (Auto) (0.6-2.4) K/uL Allen # (Auto) (0.0-0.8) K/uL Eos # (Auto) (0.0-0.7) K/uL Baso # (Auto) (0.0-0.1) K/uL Nucleated RBC % /100WBC Nucleated RBCs # K/uL VBG pH 6.96 L (7.31-7.41) VBG pCO2 24 L (35-45) mmHG VBG pO2 41 H (30-40) mmHG VBG HCO3 5 L (22-30) mEq/L VBG Total CO2 6 L (41-51) mmol/L VBG Base Excess -25.5 L (-3.0-3.0) Lactate 3.3 H* (0.20-2.00) mmol/L Sodium 135 L (136-145) mmol/L Potassium 5.8 H (3.5-5.1) mmol/L Chloride 94 L (98-107) mmol/L Carbon Dioxide 7.2 L (21.0-32.0) mmol/L BUN 16 (7.0-18.0) mg/dL Creatinine 1.5 H (0.6-1.0) mg/dL Est Cr Clr Drug Dosing 40.00 mL/min Estimated GFR (MDRD) 37.9 ml/min Glucose 389 H (74-106) mg/dL POC Glucose (60-110) mg/dL Hemoglobin A1c (4.5-6.2) % Calcium 8.5 (8.5-10.1) mg/dL Phosphorus (2.6-4.7) mg/dL Magnesium (1.8-2.4) mg/dL Total Bilirubin 0.8 (0.2-1.0) mg/dL AST 140 H (15-37) IU/L ALT 92 H (14-63) IU/L Alkaline Phosphatase 118 H (46-116) U/L Troponin I < 0.050 (0.000-0.056) ng/mL Total Protein 9.9 H (6.4-8.2) g/dL Albumin 5.1 H (3.4-5.0) g/dL Globulin 4.8 H (2.6-4.0) g/dL Albumin/Globulin Ratio 1.1 (0.9-1.6) Lipase 200 (73-393) U/L HCG, Qual (NEG) Urine Color Urine Appearance Urine pH (5.0-8.0) Ur Specific [place] (1.001-1.035) Urine Protein (NEGATIVE) mg/dL Urine Glucose (UA) (NEGATIVE) mg/dL Urine Ketones (NEGATIVE) mg/dL Urine Occult Blood (NEGATIVE) Urine Nitrite (NEGATIVE) Urine Bilirubin (NEGATIVE) Urine Ictotest Urine Urobilinogen (<2.0) EU/dL Ur Leukocyte Esterase (NEGATIVE) U Hyaline Cast (Auto) (0-2/LPF) Urine RBC (0-2/HPF) Urine WBC (0-5/HPF) Ur Epithelial Cells (NONE-FEW) Urine Bacteria (NEGATIVE) Urine Mucus (NONE-MOD) Salicylates (0-20) mg/dL Urine Opiates Screen (NEGATIVE) Ur Oxycodone Screen (NEGATIVE) Urine Methadone Screen (NEGATIVE) Acetaminophen ug/mL Ur Barbiturates Screen (NEGATIVE) Ur Phencyclidine Scrn (NEGATIVE) Ur Amphetamine Screen (NEGATIVE) U Methamphetamines Scrn (NEGATIVE) U Benzodiazepines Scrn (NEGATIVE) U Cocaine Metab Screen (NEGATIVE) U Marijuana (THC) Screen (NEGATIVE) Ethyl Alcohol mg/dL Ketones (NEG) 10/18/19 10/18/19 10/18/19 Range/Units 04:15 04:15 04:15 WBC (4.0-11.0) K/uL RBC (4.30-5.90) M/uL Hgb (12.0-16.0) g/dL Hct (36.0-46.0) % MCV (80.0-98.0) fL MCH (27.0-32.0) pg MCHC (31.0-37.0) g/dL RDW Std Deviation (28.0-62.0) fl RDW Coeff of Ilya (11.0-15.0) % Plt Count (150-400) K/uL MPV (7.40-12.00) fL Neut % (Auto) (48.0-80.0) % Lymph % (Auto) (16.0-40.0) % Allen % (Auto) (0.0-15.0) % Eos % (Auto) (0.0-7.0) % Baso % (Auto) (0.0-1.5) % Neut # (Auto) (1.4-5.7) K/uL Lymph # (Auto) (0.6-2.4) K/uL Allen # (Auto) (0.0-0.8) K/uL Eos # (Auto) (0.0-0.7) K/uL Baso # (Auto) (0.0-0.1) K/uL Nucleated RBC % /100WBC Nucleated RBCs # K/uL VBG pH (7.31-7.41) VBG pCO2 (35-45) mmHG VBG pO2 (30-40) mmHG VBG HCO3 (22-30) mEq/L VBG Total CO2 (41-51) mmol/L VBG Base Excess (-3.0-3.0) Lactate (0.20-2.00) mmol/L Sodium (136-145) mmol/L Potassium (3.5-5.1) mmol/L Chloride (98-107) mmol/L Carbon Dioxide (21.0-32.0) mmol/L BUN (7.0-18.0) mg/dL Creatinine (0.6-1.0) mg/dL Est Cr Clr Drug Dosing mL/min Estimated GFR (MDRD) ml/min Glucose (74-106) mg/dL POC Glucose (60-110) mg/dL Hemoglobin A1c 4.9 (4.5-6.2) % Calcium (8.5-10.1) mg/dL Phosphorus 5.8 H (2.6-4.7) mg/dL Magnesium 2.2 (1.8-2.4) mg/dL Total Bilirubin (0.2-1.0) mg/dL AST (15-37) IU/L ALT (14-63) IU/L Alkaline Phosphatase (46-116) U/L Troponin I (0.000-0.056) ng/mL Total Protein (6.4-8.2) g/dL Albumin (3.4-5.0) g/dL Globulin (2.6-4.0) g/dL Albumin/Globulin Ratio (0.9-1.6) Lipase (73-393) U/L HCG, Qual NEGATIVE (NEG) Urine Color Urine Appearance Urine pH (5.0-8.0) Ur Specific [place] (1.001-1.035) Urine Protein (NEGATIVE) mg/dL Urine Glucose (UA) (NEGATIVE) mg/dL Urine Ketones (NEGATIVE) mg/dL Urine Occult Blood (NEGATIVE) Urine Nitrite (NEGATIVE) Urine Bilirubin (NEGATIVE) Urine Ictotest Urine Urobilinogen (<2.0) EU/dL Ur Leukocyte Esterase (NEGATIVE) U Hyaline Cast (Auto) (0-2/LPF) Urine RBC (0-2/HPF) Urine WBC (0-5/HPF) Ur Epithelial Cells (NONE-FEW) Urine Bacteria (NEGATIVE) Urine Mucus (NONE-MOD) Salicylates (0-20) mg/dL Urine Opiates Screen (NEGATIVE) Ur Oxycodone Screen (NEGATIVE) Urine Methadone Screen (NEGATIVE) Acetaminophen ug/mL Ur Barbiturates Screen (NEGATIVE) Ur Phencyclidine Scrn (NEGATIVE) Ur Amphetamine Screen (NEGATIVE) U Methamphetamines Scrn (NEGATIVE) U Benzodiazepines Scrn (NEGATIVE) U Cocaine Metab Screen (NEGATIVE) U Marijuana (THC) Screen (NEGATIVE) Ethyl Alcohol mg/dL Ketones (NEG) 10/18/19 10/18/19 10/18/19 Range/Units 04:24 04:25 04:25 WBC 12.76 H (4.0-11.0) K/uL RBC 3.84 L (4.30-5.90) M/uL Hgb 14.3 (12.0-16.0) g/dL Hct 46.4 H (36.0-46.0) % MCV 120.8 H (80.0-98.0) fL MCH 37.2 H (27.0-32.0) pg MCHC 30.8 L (31.0-37.0) g/dL RDW Std Deviation 71.3 H (28.0-62.0) fl RDW Coeff of Ilya 16 H (11.0-15.0) % Plt Count 196 (150-400) K/uL MPV 10.00 (7.40-12.00) fL Neut % (Auto) 88.4 H (48.0-80.0) % Lymph % (Auto) 2.7 L (16.0-40.0) % Allen % (Auto) 8.7 (0.0-15.0) % Eos % (Auto) 0.0 (0.0-7.0) % Baso % (Auto) 0.2 (0.0-1.5) % Neut # (Auto) 11.3 H (1.4-5.7) K/uL Lymph # (Auto) 0.3 L (0.6-2.4) K/uL Allen # (Auto) 1.1 H (0.0-0.8) K/uL Eos # (Auto) 0.0 (0.0-0.7) K/uL Baso # (Auto) 0.0 (0.0-0.1) K/uL Nucleated RBC % 0.5 /100WBC Nucleated RBCs # 0 K/uL VBG pH (7.31-7.41) VBG pCO2 (35-45) mmHG VBG pO2 (30-40) mmHG VBG HCO3 (22-30) mEq/L VBG Total CO2 (41-51) mmol/L VBG Base Excess (-3.0-3.0) Lactate (0.20-2.00) mmol/L Sodium (136-145) mmol/L Potassium (3.5-5.1) mmol/L Chloride (98-107) mmol/L Carbon Dioxide (21.0-32.0) mmol/L BUN (7.0-18.0) mg/dL Creatinine (0.6-1.0) mg/dL Est Cr Clr Drug Dosing mL/min Estimated GFR (MDRD) ml/min Glucose (74-106) mg/dL POC Glucose 361 H (60-110) mg/dL Hemoglobin A1c (4.5-6.2) % Calcium (8.5-10.1) mg/dL Phosphorus (2.6-4.7) mg/dL Magnesium (1.8-2.4) mg/dL Total Bilirubin (0.2-1.0) mg/dL AST (15-37) IU/L ALT (14-63) IU/L Alkaline Phosphatase (46-116) U/L Troponin I (0.000-0.056) ng/mL Total Protein (6.4-8.2) g/dL Albumin (3.4-5.0) g/dL Globulin (2.6-4.0) g/dL Albumin/Globulin Ratio (0.9-1.6) Lipase (73-393) U/L HCG, Qual (NEG) Urine Color Urine Appearance Urine pH (5.0-8.0) Ur Specific [place] (1.001-1.035) Urine Protein (NEGATIVE) mg/dL Urine Glucose (UA) (NEGATIVE) mg/dL Urine Ketones (NEGATIVE) mg/dL Urine Occult Blood (NEGATIVE) Urine Nitrite (NEGATIVE) Urine Bilirubin (NEGATIVE) Urine Ictotest Urine Urobilinogen (<2.0) EU/dL Ur Leukocyte Esterase (NEGATIVE) U Hyaline Cast (Auto) (0-2/LPF) Urine RBC (0-2/HPF) Urine WBC (0-5/HPF) Ur Epithelial Cells (NONE-FEW) Urine Bacteria (NEGATIVE) Urine Mucus (NONE-MOD) Salicylates 5.0 (0-20) mg/dL Urine Opiates Screen (NEGATIVE) Ur Oxycodone Screen (NEGATIVE) Urine Methadone Screen (NEGATIVE) Acetaminophen <2.0 ug/mL Ur Barbiturates Screen (NEGATIVE) Ur Phencyclidine Scrn (NEGATIVE) Ur Amphetamine Screen (NEGATIVE) U Methamphetamines Scrn (NEGATIVE) U Benzodiazepines Scrn (NEGATIVE) U Cocaine Metab Screen (NEGATIVE) U Marijuana (THC) Screen (NEGATIVE) Ethyl Alcohol <3 mg/dL Ketones (NEG) 10/18/19 10/18/19 10/18/19 Range/Units 05:00 06:17 06:20 WBC (4.0-11.0) K/uL RBC (4.30-5.90) M/uL Hgb (12.0-16.0) g/dL Hct (36.0-46.0) % MCV (80.0-98.0) fL MCH (27.0-32.0) pg MCHC (31.0-37.0) g/dL RDW Std Deviation (28.0-62.0) fl RDW Coeff of Ilya (11.0-15.0) % Plt Count (150-400) K/uL MPV (7.40-12.00) fL Neut % (Auto) (48.0-80.0) % Lymph % (Auto) (16.0-40.0) % Allen % (Auto) (0.0-15.0) % Eos % (Auto) (0.0-7.0) % Baso % (Auto) (0.0-1.5) % Neut # (Auto) (1.4-5.7) K/uL Lymph # (Auto) (0.6-2.4) K/uL [place] # (Auto) (0.0-0.8) K/uL Eos # (Auto) (0.0-0.7) K/uL Baso # (Auto) (0.0-0.1) K/uL Nucleated RBC % /100WBC Nucleated RBCs # K/uL VBG pH (7.31-7.41) VBG pCO2 (35-45) mmHG VBG pO2 (30-40) mmHG VBG HCO3 (22-30) mEq/L VBG Total CO2 (41-51) mmol/L VBG Base Excess (-3.0-3.0) Lactate (0.20-2.00) mmol/L Sodium (136-145) mmol/L Potassium (3.5-5.1) mmol/L Chloride (98-107) mmol/L Carbon Dioxide (21.0-32.0) mmol/L BUN (7.0-18.0) mg/dL Creatinine (0.6-1.0) mg/dL Est Cr Clr Drug Dosing mL/min Estimated GFR (MDRD) ml/min Glucose (74-106) mg/dL POC Glucose 277 H (60-110) mg/dL Hemoglobin A1c (4.5-6.2) % Calcium (8.5-10.1) mg/dL Phosphorus (2.6-4.7) mg/dL Magnesium (1.8-2.4) mg/dL Total Bilirubin (0.2-1.0) mg/dL AST (15-37) IU/L ALT (14-63) IU/L Alkaline Phosphatase (46-116) U/L Troponin I (0.000-0.056) ng/mL Total Protein (6.4-8.2) g/dL Albumin (3.4-5.0) g/dL Globulin (2.6-4.0) g/dL Albumin/Globulin Ratio (0.9-1.6) Lipase (73-393) U/L HCG, Qual (NEG) Urine Color YELLOW Urine Appearance CLEAR Urine pH 5.5 (5.0-8.0) Ur Specific [place] >= 1.030 (1.001-1.035) Urine Protein 30 H (NEGATIVE) mg/dL Urine Glucose (UA) 250 H (NEGATIVE) mg/dL Urine Ketones >=80 (NEGATIVE) mg/dL Urine Occult Blood SMALL H (NEGATIVE) Urine Nitrite NEGATIVE (NEGATIVE) Urine Bilirubin MODERATE H (NEGATIVE) Urine Ictotest NEGATIVE Urine Urobilinogen 0.2 (<2.0) EU/dL Ur Leukocyte Esterase NEGATIVE (NEGATIVE) U Hyaline Cast (Auto) 0-2 (0-2/LPF) Urine RBC 0-2 (0-2/HPF) Urine WBC 0-2 (0-5/HPF) Ur Epithelial Cells FEW (NONE-FEW) Urine Bacteria FEW (NEGATIVE) Urine Mucus LIGHT (NONE-MOD) Salicylates (0-20) mg/dL Urine Opiates Screen (NEGATIVE) Ur Oxycodone Screen (NEGATIVE) Urine Methadone Screen (NEGATIVE) Acetaminophen ug/mL Ur Barbiturates Screen (NEGATIVE) Ur Phencyclidine Scrn (NEGATIVE) Ur Amphetamine Screen (NEGATIVE) U Methamphetamines Scrn (NEGATIVE) U Benzodiazepines Scrn (NEGATIVE) U Cocaine Metab Screen (NEGATIVE) U Marijuana (THC) Screen (NEGATIVE) Ethyl Alcohol mg/dL Ketones SMALL H (NEG) 10/18/19 10/18/19 10/18/19 Range/Units 06:20 06:42 06:44 WBC (4.0-11.0) K/uL RBC (4.30-5.90) M/uL Hgb (12.0-16.0) g/dL Hct (36.0-46.0) % MCV (80.0-98.0) fL MCH (27.0-32.0) pg MCHC (31.0-37.0) g/dL RDW Std Deviation (28.0-62.0) fl RDW Coeff of Ilya (11.0-15.0) % Plt Count (150-400) K/uL MPV (7.40-12.00) fL Neut % (Auto) (48.0-80.0) % Lymph % (Auto) (16.0-40.0) % [place] % (Auto) (0.0-15.0) % Eos % (Auto) (0.0-7.0) % Baso % (Auto) (0.0-1.5) % Neut # (Auto) (1.4-5.7) K/uL Lymph # (Auto) (0.6-2.4) K/uL [place] # (Auto) (0.0-0.8) K/uL Eos # (Auto) (0.0-0.7) K/uL Baso # (Auto) (0.0-0.1) K/uL Nucleated RBC % /100WBC Nucleated RBCs # K/uL VBG pH 7.17 L (7.31-7.41) VBG pCO2 22 L (35-45) mmHG VBG pO2 33 (30-40) mmHG VBG HCO3 8 L (22-30) mEq/L VBG Total CO2 8 L (41-51) mmol/L VBG Base Excess -18.5 L (-3.0-3.0) Lactate (0.20-2.00) mmol/L Sodium (136-145) mmol/L Potassium (3.5-5.1) mmol/L Chloride (98-107) mmol/L Carbon Dioxide (21.0-32.0) mmol/L BUN (7.0-18.0) mg/dL Creatinine (0.6-1.0) mg/dL Est Cr Clr Drug Dosing mL/min Estimated GFR (MDRD) ml/min Glucose (74-106) mg/dL POC Glucose 225 H (60-110) mg/dL Hemoglobin A1c (4.5-6.2) % Calcium (8.5-10.1) mg/dL Phosphorus (2.6-4.7) mg/dL Magnesium (1.8-2.4) mg/dL Total Bilirubin (0.2-1.0) mg/dL AST (15-37) IU/L ALT (14-63) IU/L Alkaline Phosphatase (46-116) U/L Troponin I (0.000-0.056) ng/mL Total Protein (6.4-8.2) g/dL Albumin (3.4-5.0) g/dL Globulin (2.6-4.0) g/dL Albumin/Globulin Ratio (0.9-1.6) Lipase (73-393) U/L HCG, Qual (NEG) Urine Color Urine Appearance Urine pH (5.0-8.0) Ur Specific [place] (1.001-1.035) Urine Protein (NEGATIVE) mg/dL Urine Glucose (UA) (NEGATIVE) mg/dL Urine Ketones (NEGATIVE) mg/dL Urine Occult Blood (NEGATIVE) Urine Nitrite (NEGATIVE) Urine Bilirubin (NEGATIVE) Urine Ictotest Urine Urobilinogen (<2.0) EU/dL Ur Leukocyte Esterase (NEGATIVE) U Hyaline Cast (Auto) (0-2/LPF) Urine RBC (0-2/HPF) Urine WBC (0-5/HPF) Ur Epithelial Cells (NONE-FEW) Urine Bacteria (NEGATIVE) Urine Mucus (NONE-MOD) Salicylates (0-20) mg/dL Urine Opiates Screen NEGATIVE (NEGATIVE) Ur Oxycodone Screen NEGATIVE (NEGATIVE) Urine Methadone Screen NEGATIVE (NEGATIVE) Acetaminophen ug/mL Ur Barbiturates Screen NEGATIVE (NEGATIVE) Ur Phencyclidine Scrn NEGATIVE (NEGATIVE) Ur Amphetamine Screen NEGATIVE (NEGATIVE) U Methamphetamines Scrn NEGATIVE (NEGATIVE) U Benzodiazepines Scrn NEGATIVE (NEGATIVE) U Cocaine Metab Screen NEGATIVE (NEGATIVE) U Marijuana (THC) Screen NEGATIVE (NEGATIVE) Ethyl Alcohol mg/dL Ketones (NEG) 10/18/19 10/18/19 10/18/19 Range/Units 06:44 06:44 06:44 WBC (4.0-11.0) K/uL RBC (4.30-5.90) M/uL Hgb (12.0-16.0) g/dL Hct (36.0-46.0) % MCV (80.0-98.0) fL MCH (27.0-32.0) pg MCHC (31.0-37.0) g/dL RDW Std Deviation (28.0-62.0) fl RDW Coeff of Ilya (11.0-15.0) % Plt Count (150-400) K/uL MPV (7.40-12.00) fL Neut % (Auto) (48.0-80.0) % Lymph % (Auto) (16.0-40.0) % Allen % (Auto) (0.0-15.0) % Eos % (Auto) (0.0-7.0) % Baso % (Auto) (0.0-1.5) % Neut # (Auto) (1.4-5.7) K/uL Lymph # (Auto) (0.6-2.4) K/uL [place] # (Auto) (0.0-0.8) K/uL Eos # (Auto) (0.0-0.7) K/uL Baso # (Auto) (0.0-0.1) K/uL Nucleated RBC % /100WBC Nucleated RBCs # K/uL VBG pH (7.31-7.41) VBG pCO2 (35-45) mmHG VBG pO2 (30-40) mmHG VBG HCO3 (22-30) mEq/L VBG Total CO2 (41-51) mmol/L VBG Base Excess (-3.0-3.0) Lactate 2.7 H* (0.20-2.00) mmol/L Sodium 136 (136-145) mmol/L Potassium 5.2 H (3.5-5.1) mmol/L Chloride 100 (98-107) mmol/L Carbon Dioxide 9.0 L (21.0-32.0) mmol/L BUN 14 (7.0-18.0) mg/dL Creatinine 1.3 H (0.6-1.0) mg/dL Est Cr Clr Drug Dosing 46.16 mL/min Estimated GFR (MDRD) 44.7 ml/min Glucose 220 H (74-106) mg/dL POC Glucose (60-110) mg/dL Hemoglobin A1c (4.5-6.2) % Calcium 8.2 L (8.5-10.1) mg/dL Phosphorus (2.6-4.7) mg/dL Magnesium (1.8-2.4) mg/dL Total Bilirubin (0.2-1.0) mg/dL AST (15-37) IU/L ALT (14-63) IU/L Alkaline Phosphatase (46-116) U/L Troponin I (0.000-0.056) ng/mL Total Protein (6.4-8.2) g/dL Albumin (3.4-5.0) g/dL Globulin (2.6-4.0) g/dL Albumin/Globulin Ratio (0.9-1.6) Lipase (73-393) U/L HCG, Qual (NEG) Urine Color Urine Appearance Urine pH (5.0-8.0) Ur Specific [place] (1.001-1.035) Urine Protein (NEGATIVE) mg/dL Urine Glucose (UA) (NEGATIVE) mg/dL Urine Ketones (NEGATIVE) mg/dL Urine Occult Blood (NEGATIVE) Urine Nitrite (NEGATIVE) Urine Bilirubin (NEGATIVE) Urine Ictotest Urine Urobilinogen (<2.0) EU/dL Ur Leukocyte Esterase (NEGATIVE) U Hyaline Cast (Auto) (0-2/LPF) Urine RBC (0-2/HPF) Urine WBC (0-5/HPF) Ur Epithelial Cells (NONE-FEW) Urine Bacteria (NEGATIVE) Urine Mucus (NONE-MOD) Salicylates (0-20) mg/dL Urine Opiates Screen (NEGATIVE) Ur Oxycodone Screen (NEGATIVE) Urine Methadone Screen (NEGATIVE) Acetaminophen ug/mL Ur Barbiturates Screen (NEGATIVE) Ur Phencyclidine Scrn (NEGATIVE) Ur Amphetamine Screen (NEGATIVE) U Methamphetamines Scrn (NEGATIVE) U Benzodiazepines Scrn (NEGATIVE) U Cocaine Metab Screen (NEGATIVE) U Marijuana (THC) Screen (NEGATIVE) Ethyl Alcohol mg/dL Ketones SMALL H (NEG) 10/18/19 10/18/19 10/18/19 Range/Units 08:18 08:47 10:54 WBC (4.0-11.0) K/uL RBC (4.30-5.90) M/uL Hgb (12.0-16.0) g/dL Hct (36.0-46.0) % MCV (80.0-98.0) fL MCH (27.0-32.0) pg MCHC (31.0-37.0) g/dL RDW Std Deviation (28.0-62.0) fl RDW Coeff of Ilya (11.0-15.0) % Plt Count (150-400) K/uL MPV (7.40-12.00) fL Neut % (Auto) (48.0-80.0) % Lymph % (Auto) (16.0-40.0) % Allen % (Auto) (0.0-15.0) % Eos % (Auto) (0.0-7.0) % Baso % (Auto) (0.0-1.5) % Neut # (Auto) (1.4-5.7) K/uL Lymph # (Auto) (0.6-2.4) K/uL Allen # (Auto) (0.0-0.8) K/uL Eos # (Auto) (0.0-0.7) K/uL Baso # (Auto) (0.0-0.1) K/uL Nucleated RBC % /100WBC Nucleated RBCs # K/uL VBG pH (7.31-7.41) VBG pCO2 (35-45) mmHG VBG pO2 (30-40) mmHG VBG HCO3 (22-30) mEq/L VBG Total CO2 (41-51) mmol/L VBG Base Excess (-3.0-3.0) Lactate 1.3 (0.20-2.00) mmol/L Sodium (136-145) mmol/L Potassium (3.5-5.1) mmol/L Chloride (98-107) mmol/L Carbon Dioxide (21.0-32.0) mmol/L BUN (7.0-18.0) mg/dL Creatinine (0.6-1.0) mg/dL Est Cr Clr Drug Dosing mL/min Estimated GFR (MDRD) ml/min Glucose (74-106) mg/dL POC Glucose 188 H 144 H (60-110) mg/dL Hemoglobin A1c (4.5-6.2) % Calcium (8.5-10.1) mg/dL Phosphorus (2.6-4.7) mg/dL Magnesium (1.8-2.4) mg/dL Total Bilirubin (0.2-1.0) mg/dL AST (15-37) IU/L ALT (14-63) IU/L Alkaline Phosphatase (46-116) U/L Troponin I (0.000-0.056) ng/mL Total Protein (6.4-8.2) g/dL Albumin (3.4-5.0) g/dL Globulin (2.6-4.0) g/dL Albumin/Globulin Ratio (0.9-1.6) Lipase (73-393) U/L HCG, Qual (NEG) Urine Color Urine Appearance Urine pH (5.0-8.0) Ur Specific [place] (1.001-1.035) Urine Protein (NEGATIVE) mg/dL Urine Glucose (UA) (NEGATIVE) mg/dL Urine Ketones (NEGATIVE) mg/dL Urine Occult Blood (NEGATIVE) Urine Nitrite (NEGATIVE) Urine Bilirubin (NEGATIVE) Urine Ictotest Urine Urobilinogen (<2.0) EU/dL Ur Leukocyte Esterase (NEGATIVE) U Hyaline Cast (Auto) (0-2/LPF) Urine RBC (0-2/HPF) Urine WBC (0-5/HPF) Ur Epithelial Cells (NONE-FEW) Urine Bacteria (NEGATIVE) Urine Mucus (NONE-MOD) Salicylates (0-20) mg/dL Urine Opiates Screen (NEGATIVE) Ur Oxycodone Screen (NEGATIVE) Urine Methadone Screen (NEGATIVE) Acetaminophen ug/mL Ur Barbiturates Screen (NEGATIVE) Ur Phencyclidine Scrn (NEGATIVE) Ur Amphetamine Screen (NEGATIVE) U Methamphetamines Scrn (NEGATIVE) U Benzodiazepines Scrn (NEGATIVE) U Cocaine Metab Screen (NEGATIVE) U Marijuana (THC) Screen (NEGATIVE) Ethyl Alcohol mg/dL Ketones (NEG) 10/18/19 10/18/19 Range/Units 11:47 13:03 WBC (4.0-11.0) K/uL RBC (4.30-5.90) M/uL Hgb (12.0-16.0) g/dL Hct (36.0-46.0) % MCV (80.0-98.0) fL MCH (27.0-32.0) pg MCHC (31.0-37.0) g/dL RDW Std Deviation (28.0-62.0) fl RDW Coeff of Ilya (11.0-15.0) % Plt Count (150-400) K/uL MPV (7.40-12.00) fL Neut % (Auto) (48.0-80.0) % Lymph % (Auto) (16.0-40.0) % Allen % (Auto) (0.0-15.0) % Eos % (Auto) (0.0-7.0) % Baso % (Auto) (0.0-1.5) % Neut # (Auto) (1.4-5.7) K/uL Lymph # (Auto) (0.6-2.4) K/uL Allen # (Auto) (0.0-0.8) K/uL Eos # (Auto) (0.0-0.7) K/uL Baso # (Auto) (0.0-0.1) K/uL Nucleated RBC % /100WBC Nucleated RBCs # K/uL VBG pH (7.31-7.41) VBG pCO2 (35-45) mmHG VBG pO2 (30-40) mmHG VBG HCO3 (22-30) mEq/L VBG Total CO2 (41-51) mmol/L VBG Base Excess (-3.0-3.0) Lactate (0.20-2.00) mmol/L Sodium (136-145) mmol/L Potassium (3.5-5.1) mmol/L Chloride (98-107) mmol/L Carbon Dioxide (21.0-32.0) mmol/L BUN (7.0-18.0) mg/dL Creatinine (0.6-1.0) mg/dL Est Cr Clr Drug Dosing mL/min Estimated GFR (MDRD) ml/min Glucose (74-106) mg/dL POC Glucose 128 H 107 (60-110) mg/dL Hemoglobin A1c (4.5-6.2) % Calcium (8.5-10.1) mg/dL Phosphorus (2.6-4.7) mg/dL Magnesium (1.8-2.4) mg/dL Total Bilirubin (0.2-1.0) mg/dL AST (15-37) IU/L ALT (14-63) IU/L Alkaline Phosphatase (46-116) U/L Troponin I (0.000-0.056) ng/mL Total Protein (6.4-8.2) g/dL Albumin (3.4-5.0) g/dL Globulin (2.6-4.0) g/dL Albumin/Globulin Ratio (0.9-1.6) Lipase (73-393) U/L HCG, Qual (NEG) Urine Color Urine Appearance Urine pH (5.0-8.0) Ur Specific [place] (1.001-1.035) Urine Protein (NEGATIVE) mg/dL Urine Glucose (UA) (NEGATIVE) mg/dL Urine Ketones (NEGATIVE) mg/dL Urine Occult Blood (NEGATIVE) Urine Nitrite (NEGATIVE) Urine Bilirubin (NEGATIVE) Urine Ictotest Urine Urobilinogen (<2.0) EU/dL Ur Leukocyte Esterase (NEGATIVE) U Hyaline Cast (Auto) (0-2/LPF) Urine RBC (0-2/HPF) Urine WBC (0-5/HPF) Ur Epithelial Cells (NONE-FEW) Urine Bacteria (NEGATIVE) Urine Mucus (NONE-MOD) Salicylates (0-20) mg/dL Urine Opiates Screen (NEGATIVE) Ur Oxycodone Screen (NEGATIVE) Urine Methadone Screen (NEGATIVE) Acetaminophen ug/mL Ur Barbiturates Screen (NEGATIVE) Ur Phencyclidine Scrn (NEGATIVE) Ur Amphetamine Screen (NEGATIVE) U Methamphetamines Scrn (NEGATIVE) U Benzodiazepines Scrn (NEGATIVE) U Cocaine Metab Screen (NEGATIVE) U Marijuana (THC) Screen (NEGATIVE) Ethyl Alcohol mg/dL Ketones (NEG) Result Diagrams: 10/19/19 06:30 10/19/19 18:02 Dash Results Last 24 hrs: Microbiology 10/18/19 04:48 Anaerobic Blood Culture - Final Blood - Venous - Lab Draw Sepsis Event Note - Evaluation Sepsis Screening Result: No Definite Risk - Focused Exam Vital Signs: Vital Signs Temp Pulse Resp BP Pulse Ox 10/18/19 10:29 109 H 128/80 98 10/18/19 09:41 111 H 133/80 98 10/18/19 09:00 108 H 18 127/72 99 10/18/19 08:18 36.3 C 119 H 17 130/77 98 10/18/19 06:38 105 H 18 143/91 H 100 10/18/19 06:26 109 H 10/18/19 06:02 113 H 20 152/92 H 98 10/18/19 04:05 36.0 C L 132 H 24 H 142/78 H 99 Date Exam was Performed: 10/19/19 Time Exam was Performed: 18:57 Problem List Initiated/Reviewed/Updated: Yes Orders Last 24hrs: Active Orders 24 hr Category Date Time Status Patient Status [ADT] Stat ADT 10/18/19 06:50 Active Antiembolic Devices [RC] PER UNIT ROUTINE Care 10/18/19 12:58 Active Blood Glucose Check, Bedside [RC] ONETIME Care 10/18/19 04:16 Active Blood Glucose Check, Bedside [RC] ONETIME Care 10/18/19 06:05 Active Cardiac Monitoring [RC] . DIRECTED Care 10/18/19 04:12 Active Communication Order [RC] STAT Care 10/18/19 04:27 Active EKG 12 Lead [EKG Documentation Completion] [RC] STAT Care 10/18/19 04:12 Active Oxygen Therapy [RC] PRN Care 10/18/19 12:55 Ordered Pulse Oximetry [RC] ASDIRECTED Care 10/18/19 04:12 Active VTE/DVT Education [RC] PER UNIT ROUTINE Care 10/18/19 12:55 Ordered Vital Signs [RC] Q4H Care 10/18/19 12:55 Ordered [employer] Diet [DIET] Diet 10/18/19 Breakfast Ordered Clear Liquid Diet [DIET] Diet 10/18/19 Breakfast Ordered BASIC METABOLIC PANEL,BMP [CHEM] Q6H Lab 10/18/19 12:26 Ordered BASIC METABOLIC PANEL,BMP [CHEM] Q6H Lab 10/18/19 18:26 Ordered BASIC METABOLIC PANEL,BMP [CHEM] Q6H Lab 10/19/19 00:26 Ordered BASIC METABOLIC PANEL,BMP [CHEM] Q6H Lab 10/19/19 06:26 Ordered CBC WITH AUTO DIFF [HEME] AM Lab 10/19/19 05:11 Ordered CULTURE BLOOD [BC] Stat Lab 10/18/19 04:48 Results CULTURE BLOOD [BC] Stat Lab 10/18/19 05:00 Received MISC TEST Stat Lab 10/18/19 05:00 Received OSMOLALITY - SERUM [REF] Stat Lab 10/18/19 04:25 Received Dextrose 5%-0.9% NaCl [Dextrose 5%-Normal Saline] 1,000 Med 10/18/19 06:45 Active ml IV ASDIRECTED Famotidine [Pepcid] Med 10/19/19 09:00 Ordered 20 mg IVPUSH DAILY Insulin Regular, Human [NovoLIN R] 100 unit Med 10/18/19 12:00 Active Sodium Chloride 0.9% [Normal Saline] 99 ml IV TITRATE Ondansetron [Zofran] Med 10/18/19 12:55 Ordered 4 mg IVPUSH Q4H PRN Sodium Chloride 0.9% [Normal Saline] Med 10/18/19 04:12 Active 10 ml IV ASDIRECTED PRN Sodium Chloride 0.9% [Saline Flush] Med 10/18/19 04:12 Active 10 ml FLUSH ASDIRECTED PRN Sodium Chloride 0.9% [Saline Flush] Med 10/18/19 04:12 Active 2.5 ml FLUSH ASDIRECTED PRN Blood Culture x2 Reflex Set [OM.PC] Stat Ot 10/18/19 04:27 Ordered Blood Culture x2 Reflex Set [OM.PC] Stat Ot 10/18/19 04:59 Ordered Peripheral IV Insertion Adult [OM.PC] Stat Ot 10/18/19 04:12 Ordered SCD [Sequential Compression Device] [OM.PC] Routine Oth 10/18/19 12:58 Ordered Resuscitation Status Stat Resus Stat 10/18/19 04:27 Ordered Medication Orders Famotidine (Pepcid) 20 mg IVPUSH DAILY JON Dextrose/Sodium Chloride (Dextrose 5%-Normal Saline) 1,000 mls @ 150 mls/hr IV ASDIRECTED JON Last Admin: 10/18/19 06:49 Dose: 150 mls/hr Insulin Human Regular 100 unit (/ Sodium Chloride) 100 mls @ 1 mls/hr IV TITRATE JON; Protocol Ondansetron HCl (Zofran) 4 mg IVPUSH Q4H PRN PRN Reason: Nausea Sodium Chloride (Saline Flush) 10 ml FLUSH ASDIRECTED PRN PRN Reason: Keep Vein Open Last Admin: 10/18/19 08:51 Dose: 10 ml Sodium Chloride (Saline Flush) 2.5 ml FLUSH ASDIRECTED PRN PRN Reason: Keep Vein Open Last Admin: 10/18/19 08:51 Dose: 2.5 ml Sodium Chloride (Normal Saline) 10 ml IV ASDIRECTED PRN PRN Reason: IV Use Assessment/Plan Comment:: 44 yo female who presents with nausea and vomiting, that is being admitted for dehydration, and metabolic acidosis Metabolic acidosis: based on prior labs appears to be chronic, We will hydrate with fluid and treat for possible DKA with insulin drip and trending BMPs.
[2019-10-18 13:34] LABS: BLOOD UREA NITROGEN,BUN 11 mg/dL (7.0-18.0); CHLORIDE,CL 100 mmol/L (98-107); GLUCOSE RANDOM 118 mg/dL (74-106); POTASSIUM,K 4.4 mmol/L (3.5-5.1); SODIUM,NA 133 mmol/L (136-145)
[2019-10-18 19:05] LABS: BLOOD UREA NITROGEN,BUN 8 mg/dL (7.0-18.0); CHLORIDE,CL 102 mmol/L (98-107); GLUCOSE RANDOM 127 mg/dL (74-106); POTASSIUM,K 4.3 mmol/L (3.5-5.1); SODIUM,NA 135 mmol/L (136-145)
[2019-10-18] MEDS ORDERED: Sodium Chloride 0.9% 1,000 ML IV SCH (20:30)
[2019-10-19 00:51] LABS: BLOOD UREA NITROGEN,BUN 6 mg/dL (7.0-18.0); CHLORIDE,CL 103 mmol/L (98-107); GLUCOSE RANDOM 105 mg/dL (74-106); POTASSIUM,K 3.5 mmol/L (3.5-5.1); SODIUM,NA 137 mmol/L (136-145)
--- NOTE | 2019-10-19 03:09 | PN ---
THC Physician - Brief Progress [id number]/05/2020 03:07[facility] Yanique paz [place] - THIERRY (JAMI) - NICO PRINCEDate of Service 10/19/2019 03:07HPI/Violette nts of Note RxStart D51/2NS w 40 Kcl IV at 200 /hrRestart insulin drip per DKA protocol, start at 2u/ hrInterventions Intermediate-Hyperglycemia - evaluation and treatment
[2019-10-19] MEDS ORDERED: D5 1/2 NS w/ 40 mEq/L KCl 1,000 ML IV SCH ×2 (03:15→09:00)
[2019-10-19 06:51] LABS: BLOOD UREA NITROGEN,BUN 5 mg/dL (7.0-18.0); CARBON DIOXIDE,CO2 22.8 mmol/L (21.0-32.0); CHLORIDE,CL 103 mmol/L (98-107); GLUCOSE RANDOM 112 mg/dL (74-106); POTASSIUM,K 3.7 mmol/L (3.5-5.1); SODIUM,NA 137 mmol/L (136-145)
[2019-10-19] MEDS ORDERED: D5 1/2 NS w/ 20 mEq/L KCl 1,000 ML IV SCH (08:45)
[2019-10-19] MEDS ORDERED: Magnesium Sulfate (4.06 MEQ/ML) 1 GM/2 ML SDV IV ONE ×2 (08:46)
[2019-10-19] MEDS ORDERED: Famotidine 20 MG/2 ML SDV IVPUSH SCH (09:00)
[2019-10-19] MEDS ORDERED: Magnesium Sulfate/Water 2 GM in Premix Bag 1 BAG IV SCH (09:00)
[2019-10-19 09:53] LABS: HEMOGLOBIN A1C 5.1 % (4.5-6.2)
--- NOTE | 2019-10-19 12:19 | PCM.PN ---
- General Info Date of Service: 10/19/19 Subjective Update: Bedside: endorsing feeling better today; decreased weakness , N/V. No acute distress - Review of Systems General: Denies: Fever, Weakness, Fatigue, Chills HEENT: Reports: No Symptoms Pulmonary: Reports: No Symptoms Cardiovascular: Reports: No Symptoms Gastrointestinal: Reports: No Symptoms Genitourinary: Reports: No Symptoms Neurological: Reports: No Symptoms - Patient Data Vitals - Most Recent: Last Vital Signs Temp 97.7 F 10/19/19 07:00 Pulse 84 10/18/19 18:00 Resp 13 10/19/19 11:00 BP 144/99 H 10/19/19 11:00 Pulse Ox 98 10/19/19 11:00 Weight - Most Recent: 58.423 kg I&O - Last 24 Hours: Intake & Output 10/18/19 10/19/19 10/19/19 22:59 06:59 14:59 Intake Total 753 1947 551 Output Total 500 1400 Balance 253 547 551 Lab Results Last 24 Hours: Laboratory Results - last 24 hr 10/18/19 10/18/19 10/18/19 Range/Units 04:25 06:44 11:47 WBC (4.0-11.0) K/uL RBC (4.30-5.90) M/uL Hgb (12.0-16.0) g/dL Hct (36.0-46.0) % MCV (80.0-98.0) fL MCH (27.0-32.0) pg MCHC (31.0-37.0) g/dL RDW Std Deviation (28.0-62.0) fl RDW Coeff of Ilya (11.0-15.0) % Plt Count (150-400) K/uL MPV (7.40-12.00) fL Neut % (Auto) (48.0-80.0) % Lymph % (Auto) (16.0-40.0) % [place] % (Auto) (0.0-15.0) % Eos % (Auto) (0.0-7.0) % Baso % (Auto) (0.0-1.5) % Neut # (Auto) (1.4-5.7) K/uL Lymph # (Auto) (0.6-2.4) K/uL [place] # (Auto) (0.0-0.8) K/uL Eos # (Auto) (0.0-0.7) K/uL Baso # (Auto) (0.0-0.1) K/uL Nucleated RBC % /100WBC Nucleated RBCs # K/uL Sodium (136-145) mmol/L Potassium (3.5-5.1) mmol/L Chloride (98-107) mmol/L Carbon Dioxide (21.0-32.0) mmol/L BUN (7.0-18.0) mg/dL Creatinine (0.6-1.0) mg/dL Est Cr Clr Drug Dosing mL/min Estimated GFR (MDRD) ml/min Glucose (74-106) mg/dL POC Glucose 128 H (60-110) mg/dL Hemoglobin A1c (4.5-6.2) % Serum Osmolality 323 H (275-295) mosm/kg Calcium (8.5-10.1) mg/dL Magnesium (1.8-2.4) mg/dL Total Bilirubin (0.2-1.0) mg/dL AST (15-37) IU/L ALT (14-63) IU/L Alkaline Phosphatase (46-116) U/L Total Protein (6.4-8.2) g/dL Albumin (3.4-5.0) g/dL TSH 3rd Generation (0.36-3.74) uIU/mL Ketones SMALL H (NEG) 10/18/19 10/18/19 10/18/19 Range/Units 12:50 13:03 14:03 WBC (4.0-11.0) K/uL RBC (4.30-5.90) M/uL Hgb (12.0-16.0) g/dL Hct (36.0-46.0) % MCV (80.0-98.0) fL MCH (27.0-32.0) pg MCHC (31.0-37.0) g/dL RDW Std Deviation (28.0-62.0) fl RDW Coeff of Ilya (11.0-15.0) % Plt Count (150-400) K/uL MPV (7.40-12.00) fL Neut % (Auto) (48.0-80.0) % Lymph % (Auto) (16.0-40.0) % [place] % (Auto) (0.0-15.0) % Eos % (Auto) (0.0-7.0) % Baso % (Auto) (0.0-1.5) % Neut # (Auto) (1.4-5.7) K/uL Lymph # (Auto) (0.6-2.4) K/uL [place] # (Auto) (0.0-0.8) K/uL Eos # (Auto) (0.0-0.7) K/uL Baso # (Auto) (0.0-0.1) K/uL Nucleated RBC % /100WBC Nucleated RBCs # K/uL Sodium 133 L (136-145) mmol/L Potassium 4.4 (3.5-5.1) mmol/L Chloride 100 (98-107) mmol/L Carbon Dioxide 19.0 L (21.0-32.0) mmol/L BUN 11 (7.0-18.0) mg/dL Creatinine 1.0 (0.6-1.0) mg/dL Est Cr Clr Drug Dosing 60.00 mL/min Estimated GFR (MDRD) > 60.0 ml/min Glucose 118 H (74-106) mg/dL POC Glucose 107 126 H (60-110) mg/dL Hemoglobin A1c (4.5-6.2) % Serum Osmolality (275-295) mosm/kg Calcium 8.5 (8.5-10.1) mg/dL Magnesium (1.8-2.4) mg/dL Total Bilirubin (0.2-1.0) mg/dL AST (15-37) IU/L ALT (14-63) IU/L Alkaline Phosphatase (46-116) U/L Total Protein (6.4-8.2) g/dL Albumin (3.4-5.0) g/dL TSH 3rd Generation (0.36-3.74) uIU/mL Ketones (NEG) 10/18/19 10/18/19 10/18/19 Range/Units 15:01 16:14 17:07 WBC (4.0-11.0) K/uL RBC (4.30-5.90) M/uL Hgb (12.0-16.0) g/dL Hct (36.0-46.0) % MCV (80.0-98.0) fL MCH (27.0-32.0) pg MCHC (31.0-37.0) g/dL RDW Std Deviation (28.0-62.0) fl RDW Coeff of Ilya (11.0-15.0) % Plt Count (150-400) K/uL MPV (7.40-12.00) fL Neut % (Auto) (48.0-80.0) % Lymph % (Auto) (16.0-40.0) % [place] % (Auto) (0.0-15.0) % Eos % (Auto) (0.0-7.0) % Baso % (Auto) (0.0-1.5) % Neut # (Auto) (1.4-5.7) K/uL Lymph # (Auto) (0.6-2.4) K/uL [place] # (Auto) (0.0-0.8) K/uL Eos # (Auto) (0.0-0.7) K/uL Baso # (Auto) (0.0-0.1) K/uL Nucleated RBC % /100WBC Nucleated RBCs # K/uL Sodium (136-145) mmol/L Potassium (3.5-5.1) mmol/L Chloride (98-107) mmol/L Carbon Dioxide (21.0-32.0) mmol/L BUN (7.0-18.0) mg/dL Creatinine (0.6-1.0) mg/dL Est Cr Clr Drug Dosing mL/min Estimated GFR (MDRD) ml/min Glucose (74-106) mg/dL POC Glucose 130 H 123 H 117 H (60-110) mg/dL Hemoglobin A1c (4.5-6.2) % Serum Osmolality (275-295) mosm/kg Calcium (8.5-10.1) mg/dL Magnesium (1.8-2.4) mg/dL Total Bilirubin (0.2-1.0) mg/dL AST (15-37) IU/L ALT (14-63) IU/L Alkaline Phosphatase (46-116) U/L Total Protein (6.4-8.2) g/dL Albumin (3.4-5.0) g/dL TSH 3rd Generation (0.36-3.74) uIU/mL Ketones (NEG) 10/18/19 10/18/19 10/18/19 Range/Units 18:08 18:31 18:59 WBC (4.0-11.0) K/uL RBC (4.30-5.90) M/uL Hgb (12.0-16.0) g/dL Hct (36.0-46.0) % MCV (80.0-98.0) fL MCH (27.0-32.0) pg MCHC (31.0-37.0) g/dL RDW Std Deviation (28.0-62.0) fl RDW Coeff of Ilya (11.0-15.0) % Plt Count (150-400) K/uL MPV (7.40-12.00) fL Neut % (Auto) (48.0-80.0) % Lymph % (Auto) (16.0-40.0) % [place] % (Auto) (0.0-15.0) % Eos % (Auto) (0.0-7.0) % Baso % (Auto) (0.0-1.5) % Neut # (Auto) (1.4-5.7) K/uL Lymph # (Auto) (0.6-2.4) K/uL [place] # (Auto) (0.0-0.8) K/uL Eos # (Auto) (0.0-0.7) K/uL Baso # (Auto) (0.0-0.1) K/uL Nucleated RBC % /100WBC Nucleated RBCs # K/uL Sodium 135 L (136-145) mmol/L Potassium 4.3 (3.5-5.1) mmol/L Chloride 102 (98-107) mmol/L Carbon Dioxide 22.0 (21.0-32.0) mmol/L BUN 8 (7.0-18.0) mg/dL Creatinine 0.9 (0.6-1.0) mg/dL Est Cr Clr Drug Dosing 66.67 mL/min Estimated GFR (MDRD) > 60.0 ml/min Glucose 127 H (74-106) mg/dL POC Glucose 123 H 128 H (60-110) mg/dL Hemoglobin A1c (4.5-6.2) % Serum Osmolality (275-295) mosm/kg Calcium 8.3 L (8.5-10.1) mg/dL Magnesium (1.8-2.4) mg/dL Total Bilirubin (0.2-1.0) mg/dL AST (15-37) IU/L ALT (14-63) IU/L Alkaline Phosphatase (46-116) U/L Total Protein (6.4-8.2) g/dL Albumin (3.4-5.0) g/dL TSH 3rd Generation (0.36-3.74) uIU/mL Ketones (NEG) 10/18/19 10/18/19 10/18/19 Range/Units 20:02 21:04 22:02 WBC (4.0-11.0) K/uL RBC (4.30-5.90) M/uL Hgb (12.0-16.0) g/dL Hct (36.0-46.0) % MCV (80.0-98.0) fL MCH (27.0-32.0) pg MCHC (31.0-37.0) g/dL RDW Std Deviation (28.0-62.0) fl RDW Coeff of Ilya (11.0-15.0) % Plt Count (150-400) K/uL MPV (7.40-12.00) fL Neut % (Auto) (48.0-80.0) % Lymph % (Auto) (16.0-40.0) % [place] % (Auto) (0.0-15.0) % Eos % (Auto) (0.0-7.0) % Baso % (Auto) (0.0-1.5) % Neut # (Auto) (1.4-5.7) K/uL Lymph # (Auto) (0.6-2.4) K/uL [place] # (Auto) (0.0-0.8) K/uL Eos # (Auto) (0.0-0.7) K/uL Baso # (Auto) (0.0-0.1) K/uL Nucleated RBC % /100WBC Nucleated RBCs # K/uL Sodium (136-145) mmol/L Potassium (3.5-5.1) mmol/L Chloride (98-107) mmol/L Carbon Dioxide (21.0-32.0) mmol/L BUN (7.0-18.0) mg/dL Creatinine (0.6-1.0) mg/dL Est Cr Clr Drug Dosing mL/min Estimated GFR (MDRD) ml/min Glucose (74-106) mg/dL POC Glucose 118 H 83 101 (60-110) mg/dL Hemoglobin A1c (4.5-6.2) % Serum Osmolality (275-295) mosm/kg Calcium (8.5-10.1) mg/dL Magnesium (1.8-2.4) mg/dL Total Bilirubin (0.2-1.0) mg/dL AST (15-37) IU/L ALT (14-63) IU/L Alkaline Phosphatase (46-116) U/L Total Protein (6.4-8.2) g/dL Albumin (3.4-5.0) g/dL TSH 3rd Generation (0.36-3.74) uIU/mL Ketones (NEG) 10/18/19 10/19/19 10/19/19 Range/Units 23:10 00:08 00:31 WBC (4.0-11.0) K/uL RBC (4.30-5.90) M/uL Hgb (12.0-16.0) g/dL Hct (36.0-46.0) % MCV (80.0-98.0) fL MCH (27.0-32.0) pg MCHC (31.0-37.0) g/dL RDW Std Deviation (28.0-62.0) fl RDW Coeff of Ilya (11.0-15.0) % Plt Count (150-400) K/uL MPV (7.40-12.00) fL Neut % (Auto) (48.0-80.0) % Lymph % (Auto) (16.0-40.0) % [place] % (Auto) (0.0-15.0) % Eos % (Auto) (0.0-7.0) % Baso % (Auto) (0.0-1.5) % Neut # (Auto) (1.4-5.7) K/uL Lymph # (Auto) (0.6-2.4) K/uL [place] # (Auto) (0.0-0.8) K/uL Eos # (Auto) (0.0-0.7) K/uL Baso # (Auto) (0.0-0.1) K/uL Nucleated RBC % /100WBC Nucleated RBCs # K/uL Sodium 137 (136-145) mmol/L Potassium 3.5 (3.5-5.1) mmol/L Chloride 103 (98-107) mmol/L Carbon Dioxide 20.0 L (21.0-32.0) mmol/L BUN 6 L (7.0-18.0) mg/dL Creatinine 0.7 (0.6-1.0) mg/dL Est Cr Clr Drug Dosing 85.72 mL/min Estimated GFR (MDRD) > 60.0 ml/min Glucose 105 (74-106) mg/dL POC Glucose 106 102 (60-110) mg/dL Hemoglobin A1c (4.5-6.2) % Serum Osmolality (275-295) mosm/kg Calcium 8.1 L (8.5-10.1) mg/dL Magnesium (1.8-2.4) mg/dL Total Bilirubin (0.2-1.0) mg/dL AST (15-37) IU/L ALT (14-63) IU/L Alkaline Phosphatase (46-116) U/L Total Protein (6.4-8.2) g/dL Albumin (3.4-5.0) g/dL TSH 3rd Generation (0.36-3.74) uIU/mL Ketones (NEG) 10/19/19 10/19/19 10/19/19 Range/Units 02:05 04:03 05:00 WBC (4.0-11.0) K/uL RBC (4.30-5.90) M/uL Hgb (12.0-16.0) g/dL Hct (36.0-46.0) % MCV (80.0-98.0) fL MCH (27.0-32.0) pg MCHC (31.0-37.0) g/dL RDW Std Deviation (28.0-62.0) fl RDW Coeff of Ilya (11.0-15.0) % Plt Count (150-400) K/uL MPV (7.40-12.00) fL Neut % (Auto) (48.0-80.0) % Lymph % (Auto) (16.0-40.0) % [place] % (Auto) (0.0-15.0) % Eos % (Auto) (0.0-7.0) % Baso % (Auto) (0.0-1.5) % Neut # (Auto) (1.4-5.7) K/uL Lymph # (Auto) (0.6-2.4) K/uL [place] # (Auto) (0.0-0.8) K/uL Eos # (Auto) (0.0-0.7) K/uL Baso # (Auto) (0.0-0.1) K/uL Nucleated RBC % /100WBC Nucleated RBCs # K/uL Sodium (136-145) mmol/L Potassium (3.5-5.1) mmol/L Chloride (98-107) mmol/L Carbon Dioxide (21.0-32.0) mmol/L BUN (7.0-18.0) mg/dL Creatinine (0.6-1.0) mg/dL Est Cr Clr Drug Dosing mL/min Estimated GFR (MDRD) ml/min Glucose (74-106) mg/dL POC Glucose 95 130 H 157 H (60-110) mg/dL Hemoglobin A1c (4.5-6.2) % Serum Osmolality (275-295) mosm/kg Calcium (8.5-10.1) mg/dL Magnesium (1.8-2.4) mg/dL Total Bilirubin (0.2-1.0) mg/dL AST (15-37) IU/L ALT (14-63) IU/L Alkaline Phosphatase (46-116) U/L Total Protein (6.4-8.2) g/dL Albumin (3.4-5.0) g/dL TSH 3rd Generation (0.36-3.74) uIU/mL Ketones (NEG) 10/19/19 10/19/19 10/19/19 Range/Units 06:04 06:30 06:30 WBC 8.30 (4.0-11.0) K/uL RBC 2.97 L (4.30-5.90) M/uL Hgb 11.0 L (12.0-16.0) g/dL Hct 33.1 L (36.0-46.0) % MCV 111.4 H (80.0-98.0) fL MCH 37.0 H (27.0-32.0) pg MCHC 33.2 (31.0-37.0) g/dL RDW Std Deviation 65.7 H (28.0-62.0) fl RDW Coeff of Ilya 16 H (11.0-15.0) % Plt Count 108 L (150-400) K/uL MPV 9.40 (7.40-12.00) fL Neut % (Auto) 69.9 (48.0-80.0) % Lymph % (Auto) 21.3 (16.0-40.0) % [place] % (Auto) 8.3 (0.0-15.0) % Eos % (Auto) 0.5 (0.0-7.0) % Baso % (Auto) 0.0 (0.0-1.5) % Neut # (Auto) 5.8 H (1.4-5.7) K/uL Lymph # (Auto) 1.8 (0.6-2.4) K/uL [place] # (Auto) 0.7 (0.0-0.8) K/uL Eos # (Auto) 0.0 (0.0-0.7) K/uL Baso # (Auto) 0.0 (0.0-0.1) K/uL Nucleated RBC % 0.0 /100WBC Nucleated RBCs # 0 K/uL Sodium 137 (136-145) mmol/L Potassium 3.7 (3.5-5.1) mmol/L Chloride 103 (98-107) mmol/L Carbon Dioxide 22.8 (21.0-32.0) mmol/L BUN 5 L (7.0-18.0) mg/dL Creatinine 0.8 (0.6-1.0) mg/dL Est Cr Clr Drug Dosing 75.01 mL/min Estimated GFR (MDRD) > 60.0 ml/min Glucose 112 H (74-106) mg/dL POC Glucose 108 (60-110) mg/dL Hemoglobin A1c (4.5-6.2) % Serum Osmolality (275-295) mosm/kg Calcium 8.4 L (8.5-10.1) mg/dL Magnesium (1.8-2.4) mg/dL Total Bilirubin (0.2-1.0) mg/dL AST (15-37) IU/L ALT (14-63) IU/L Alkaline Phosphatase (46-116) U/L Total Protein (6.4-8.2) g/dL Albumin (3.4-5.0) g/dL TSH 3rd Generation (0.36-3.74) uIU/mL Ketones (NEG) 10/19/19 10/19/19 10/19/19 Range/Units 06:30 06:30 06:30 WBC (4.0-11.0) K/uL RBC (4.30-5.90) M/uL Hgb (12.0-16.0) g/dL Hct (36.0-46.0) % MCV (80.0-98.0) fL MCH (27.0-32.0) pg MCHC (31.0-37.0) g/dL RDW Std Deviation (28.0-62.0) fl RDW Coeff of Ilya (11.0-15.0) % Plt Count (150-400) K/uL MPV (7.40-12.00) fL Neut % (Auto) (48.0-80.0) % Lymph % (Auto) (16.0-40.0) % [place] % (Auto) (0.0-15.0) % Eos % (Auto) (0.0-7.0) % Baso % (Auto) (0.0-1.5) % Neut # (Auto) (1.4-5.7) K/uL Lymph # (Auto) (0.6-2.4) K/uL [place] # (Auto) (0.0-0.8) K/uL Eos # (Auto) (0.0-0.7) K/uL Baso # (Auto) (0.0-0.1) K/uL Nucleated RBC % /100WBC Nucleated RBCs # K/uL Sodium (136-145) mmol/L Potassium (3.5-5.1) mmol/L Chloride (98-107) mmol/L Carbon Dioxide (21.0-32.0) mmol/L BUN (7.0-18.0) mg/dL Creatinine (0.6-1.0) mg/dL Est Cr Clr Drug Dosing mL/min Estimated GFR (MDRD) ml/min Glucose (74-106) mg/dL POC Glucose (60-110) mg/dL Hemoglobin A1c (4.5-6.2) % Serum Osmolality (275-295) mosm/kg Calcium (8.5-10.1) mg/dL Magnesium 1.4 L (1.8-2.4) mg/dL Total Bilirubin (0.2-1.0) mg/dL AST (15-37) IU/L ALT (14-63) IU/L Alkaline Phosphatase (46-116) U/L Total Protein (6.4-8.2) g/dL Albumin 3.1 L (3.4-5.0) g/dL TSH 3rd Generation 2.18 (0.36-3.74) uIU/mL Ketones (NEG) 10/19/19 10/19/19 10/19/19 Range/Units 06:30 06:30 07:17 WBC (4.0-11.0) K/uL RBC (4.30-5.90) M/uL Hgb (12.0-16.0) g/dL Hct (36.0-46.0) % MCV (80.0-98.0) fL MCH (27.0-32.0) pg MCHC (31.0-37.0) g/dL RDW Std Deviation (28.0-62.0) fl RDW Coeff of Ilya (11.0-15.0) % Plt Count (150-400) K/uL MPV (7.40-12.00) fL Neut % (Auto) (48.0-80.0) % Lymph % (Auto) (16.0-40.0) % [place] % (Auto) (0.0-15.0) % Eos % (Auto) (0.0-7.0) % Baso % (Auto) (0.0-1.5) % Neut # (Auto) (1.4-5.7) K/uL Lymph # (Auto) (0.6-2.4) K/uL [place] # (Auto) (0.0-0.8) K/uL Eos # (Auto) (0.0-0.7) K/uL Baso # (Auto) (0.0-0.1) K/uL Nucleated RBC % /100WBC Nucleated RBCs # K/uL Sodium (136-145) mmol/L Potassium (3.5-5.1) mmol/L Chloride (98-107) mmol/L Carbon Dioxide (21.0-32.0) mmol/L BUN (7.0-18.0) mg/dL Creatinine (0.6-1.0) mg/dL Est Cr Clr Drug Dosing mL/min Estimated GFR (MDRD) ml/min Glucose (74-106) mg/dL POC Glucose 117 H (60-110) mg/dL Hemoglobin A1c 5.1 (4.5-6.2) % Serum Osmolality (275-295) mosm/kg Calcium (8.5-10.1) mg/dL Magnesium (1.8-2.4) mg/dL Total Bilirubin 0.5 (0.2-1.0) mg/dL AST 84 H (15-37) IU/L ALT 56 (14-63) IU/L Alkaline Phosphatase 64 (46-116) U/L Total Protein 6.1 L (6.4-8.2) g/dL Albumin (3.4-5.0) g/dL TSH 3rd Generation (0.36-3.74) uIU/mL Ketones (NEG) 10/19/19 10/19/19 10/19/19 Range/Units 08:06 09:16 10:14 WBC (4.0-11.0) K/uL RBC (4.30-5.90) M/uL Hgb (12.0-16.0) g/dL Hct (36.0-46.0) % MCV (80.0-98.0) fL MCH (27.0-32.0) pg MCHC (31.0-37.0) g/dL RDW Std Deviation (28.0-62.0) fl RDW Coeff of Ilya (11.0-15.0) % Plt Count (150-400) K/uL MPV (7.40-12.00) fL Neut % (Auto) (48.0-80.0) % Lymph % (Auto) (16.0-40.0) % [place] % (Auto) (0.0-15.0) % Eos % (Auto) (0.0-7.0) % Baso % (Auto) (0.0-1.5) % Neut # (Auto) (1.4-5.7) K/uL Lymph # (Auto) (0.6-2.4) K/uL [place] # (Auto) (0.0-0.8) K/uL Eos # (Auto) (0.0-0.7) K/uL Baso # (Auto) (0.0-0.1) K/uL Nucleated RBC % /100WBC Nucleated RBCs # K/uL Sodium (136-145) mmol/L Potassium (3.5-5.1) mmol/L Chloride (98-107) mmol/L Carbon Dioxide (21.0-32.0) mmol/L BUN (7.0-18.0) mg/dL Creatinine (0.6-1.0) mg/dL Est Cr Clr Drug Dosing mL/min Estimated GFR (MDRD) ml/min Glucose (74-106) mg/dL POC Glucose 127 H 117 H 79 (60-110) mg/dL Hemoglobin A1c (4.5-6.2) % Serum Osmolality (275-295) mosm/kg Calcium (8.5-10.1) mg/dL Magnesium (1.8-2.4) mg/dL Total Bilirubin (0.2-1.0) mg/dL AST (15-37) IU/L ALT (14-63) IU/L Alkaline Phosphatase (46-116) U/L Total Protein (6.4-8.2) g/dL Albumin (3.4-5.0) g/dL TSH 3rd Generation (0.36-3.74) uIU/mL Ketones (NEG) 10/19/19 Range/Units 10:54 WBC (4.0-11.0) K/uL RBC (4.30-5.90) M/uL Hgb (12.0-16.0) g/dL Hct (36.0-46.0) % MCV (80.0-98.0) fL MCH (27.0-32.0) pg MCHC (31.0-37.0) g/dL RDW Std Deviation (28.0-62.0) fl RDW Coeff of Ilya (11.0-15.0) % Plt Count (150-400) K/uL MPV (7.40-12.00) fL Neut % (Auto) (48.0-80.0) % Lymph % (Auto) (16.0-40.0) % [place] % (Auto) (0.0-15.0) % Eos % (Auto) (0.0-7.0) % Baso % (Auto) (0.0-1.5) % Neut # (Auto) (1.4-5.7) K/uL Lymph # (Auto) (0.6-2.4) K/uL [place] # (Auto) (0.0-0.8) K/uL Eos # (Auto) (0.0-0.7) K/uL Baso # (Auto) (0.0-0.1) K/uL Nucleated RBC % /100WBC Nucleated RBCs # K/uL Sodium (136-145) mmol/L Potassium (3.5-5.1) mmol/L Chloride (98-107) mmol/L Carbon Dioxide (21.0-32.0) mmol/L BUN (7.0-18.0) mg/dL Creatinine (0.6-1.0) mg/dL Est Cr Clr Drug Dosing mL/min Estimated GFR (MDRD) ml/min Glucose (74-106) mg/dL POC Glucose 110 (60-110) mg/dL Hemoglobin A1c (4.5-6.2) % Serum Osmolality (275-295) mosm/kg Calcium (8.5-10.1) mg/dL Magnesium (1.8-2.4) mg/dL Total Bilirubin (0.2-1.0) mg/dL AST (15-37) IU/L ALT (14-63) IU/L Alkaline Phosphatase (46-116) U/L Total Protein (6.4-8.2) g/dL Albumin (3.4-5.0) g/dL TSH 3rd Generation (0.36-3.74) uIU/mL Ketones (NEG) Dash Results Last 24 Hours: Microbiology 10/18/19 04:48 Aerobic Blood Culture - Preliminary Blood - Venous - Lab Draw NO GROWTH AFTER 1 DAY Anaerobic Blood Culture - Final 10/18/19 05:00 Aerobic Blood Culture - Preliminary Blood - Venous NO GROWTH AFTER 1 DAY Anaerobic Blood Culture - Preliminary NO GROWTH AFTER 1 DAY Med Orders - Current: Current Medications Famotidine 20 mg/ Sodium (Chloride) 10 mls @ 300 mls/hr IV DAILY JON Last Admin: 10/19/19 09:04 Dose: 300 mls/hr Magnesium Sulfate 2 gm/ Premix 50 mls @ 50 mls/hr IV ONETIME JON Last Admin: 10/19/19 09:03 Dose: 50 mls/hr Ondansetron HCl (Zofran) 4 mg IVPUSH Q4H PRN PRN Reason: Nausea Sodium Chloride (Saline Flush) 10 ml FLUSH ASDIRECTED PRN PRN Reason: Keep Vein Open Last Admin: 10/18/19 08:51 Dose: 10 ml Sodium Chloride (Saline Flush) 2.5 ml FLUSH ASDIRECTED PRN PRN Reason: Keep Vein Open Last Admin: 10/18/19 08:51 Dose: 2.5 ml Sodium Chloride (Normal Saline) 10 ml IV ASDIRECTED PRN PRN Reason: IV Use Discontinued Medications Al Hydroxide/Mg Hydroxide 15 (ml/ Lidocaine HCl 5 ml) 0 ml PO ONETIME ONE Stop: 10/18/19 04:15 Last Admin: 10/18/19 06:53 Dose: Not Given Al Hydroxide/Mg Hydroxide 15 (ml/ Lidocaine HCl 5 ml) 0 ml PO ONETIME ONE Stop: 10/18/19 06:46 Last Admin: 10/18/19 08:51 Dose: 1 each Lactated Ringer's (Ringers, Lactated) 1,000 mls @ 1,000 mls/hr IV .BOLUS ONE Stop: 10/18/19 05:11 Last Admin: 10/18/19 05:12 Dose: 1,000 mls/hr Lactated Ringer's (Ringers, Lactated) 1,000 mls @ 1,000 mls/hr IV .BOLUS ONE Stop: 10/18/19 05:25 Last Admin: 10/18/19 05:13 Dose: 1,000 mls/hr Insulin Human Regular 100 unit (/ Sodium Chloride) 100 mls @ 6 mls/hr IV TITRATE JON; Protocol Last Titration: 10/18/19 12:00 Dose: 1 unit/hr, 1 mls/hr Vancomycin HCl 1,000 gm/ (Dextrose/Water) 250 mls @ 167 mls/hr IV ONETIME ONE Stop: 10/18/19 06:28 Last Admin: 10/18/19 06:28 Dose: Not Given Lactated Ringer's (Ringers, Lactated) 1,000 mls @ 250 mls/hr IV ASDIRECTED JON Last Admin: 10/18/19 05:38 Dose: 250 mls/hr Vancomycin HCl 1 gm/ Sodium (Chloride) 250 mls @ 166 mls/hr IV ONETIME ONE Stop: 10/18/19 06:41 Last Admin: 10/18/19 06:21 Dose: 166 mls/hr Ceftriaxone Sodium/Dextrose 1 (gm/ Premix) 50 mls @ 100 mls/hr IV ONETIME ONE Stop: 10/18/19 05:44 Last Admin: 10/18/19 05:29 Dose: 100 mls/hr Sodium Chloride (Normal Saline (Advbag)) Confirm Administered Dose 250 mls @ as directed .ROUTE .[facility] ONE Stop: 10/18/19 05:19 Last Admin: 10/18/19 06:08 Dose: Not Given Ceftriaxone Sodium/Dextrose (Rocephin In Dextrose,Iso-Osm 1 Gm/50 Ml) Confirm Administered Dose 50 mls @ as directed .ROUTE .[facility] ONE Stop: 10/18/19 05:20 Last Admin: 10/18/19 05:49 Dose: Not Given Dextrose/Sodium Chloride (Dextrose 5%-Normal Saline) 1,000 mls @ 150 mls/hr IV ASDIRECTED JON Last Admin: 10/18/19 13:30 Dose: 150 mls/hr Insulin Human Regular 100 unit (/ Sodium Chloride) 100 mls @ 1 mls/hr IV TITRATE JON; Protocol Last Titration: 10/19/19 09:17 Dose: 0.5 unit/hr, 0.5 mls/hr Sodium Chloride (Normal Saline) 1,000 mls @ 100 mls/hr IV ASDIRECTED JON Last Admin: 10/18/19 20:27 Dose: 100 mls/hr Potassium Chloride/Dextrose/Sod Cl (D5 1/2 Ns W/ 40 Meq/L Kcl) 1,000 mls @ 200 mls/hr IV ASDIRECTED [facility] Last Admin: 10/19/19 03:29 Dose: 200 mls/hr Potassium Chloride/Dextrose/Sod Cl (D5 1/2 Ns W/ 40 Meq/L Kcl) 1,000 mls @ 200 mls/hr IV ASDIRECTED [facility] Last Admin: 10/19/19 09:01 Dose: 200 mls/hr Magnesium Sulfate (Magnesium Sulfate 50%) 1 gm IV ONETIME ONE Stop: 10/19/19 08:47 Last Admin: 10/19/19 08:54 Dose: Not Given Ondansetron HCl (Zofran) 4 mg IVPUSH ONETIME ONE Stop: 10/18/19 04:13 Last Admin: 10/18/19 04:29 Dose: 4 mg Ondansetron HCl (Zofran) 4 mg IVPUSH ONETIME ONE Stop: 10/18/19 05:19 Last Admin: 10/18/19 05:30 Dose: 4 mg Vancomycin HCl (Vancocin) Confirm Administered Dose 1 gm .ROUTE .[facility] ONE Stop: 10/18/19 05:19 Last Admin: 10/18/19 05:48 Dose: Not Given - Exam Quality Assessment: No: Supplemental Oxygen General: Oriented, Cooperative, No Acute Distress HEENT: EOMI Neck: Supple Lungs: Clear to Auscultation, Normal Respiratory Effort Cardiovascular: Regular Rate, Regular Rhythm GI/Abdominal Exam: Soft, Non-Tender Back Exam: Normal Inspection Wound/Incisions: Healing Well Neurological: No New Focal Deficit Psy/Mental Status: Alert, Normal Affect, Normal Mood Sepsis Event Note - Evaluation Sepsis Screening Result: No Definite Risk - Focused Exam Vital Signs: Vital Signs Temp Resp BP Pulse Ox 10/19/19 11:00 13 144/99 H 98 10/19/19 10:00 19 145/99 H 99 10/19/19 09:00 18 160/99 H 100 10/19/19 08:00 15 157/92 H 97 10/19/19 07:00 97.7 F 15 155/100 H 98 10/19/19 06:00 17 162/102 H 99 10/19/19 05:00 13 158/93 H 99 10/19/19 04:00 98.6 F 16 156/94 H 98 10/19/19 03:00 15 157/86 H 98 10/19/19 02:00 17 159/99 H 98 10/19/19 01:00 15 147/89 H 97 Date Exam was Performed: 10/19/19 Time Exam was Performed: 12:20 - Problem List Review Problem List Initiated/Reviewed/Updated: Yes - My Orders Last 24 Hours: My Active Orders 10/19/19 09:00 Magnesium Sulfate/Water [Magnesium Sulfate in Water Premix] 2 gm Premix Bag 1 bag IV ONETIME - Plan Plan:: A. Metabolic acidosis of unknown etiology Past medical history of MS and hypertension plan: Discussion: pt. responding well to IV hydrations and overnight need for INsulin drip. BG this AM improved; gap closed at 11; will dc drip and continue to monitor glucose [id number] to see response; BMP at 1200 and q6hrs thereafter. UTOX negative and clinical picture improving despite no definitive etiology discovered. Rechecked A1c this AM to confirm not a lab error: 5.1; probably w. in margin of error. BP elevated ; will still monitor and hold off on Lisinopril unless necessary. Discussed findings w. pt and ; endorse pt. has a very low appetite and has for many months now not eaten well; does not endorse excess ETOH use but will need to revisit this conversation. Recent follow up with Neurology for Pt. MS also (per patient) was stable. Labs from outside facility suggested work up for premature menopause: FSH/LH WNL ; repeat TSH also WNL (pt. mentions irregular menstrual cycles); but again could also be related to decrease nutrition; continue to investigate,. Concern about diet; or decrease in appetite will need to be addressed at some point as well. Possible Type I DM will need to be evaluated. Repleted Magnesium
[2019-10-19 13:02] LABS: BLOOD UREA NITROGEN,BUN 3 mg/dL (7.0-18.0); CARBON DIOXIDE,CO2 21.7 mmol/L (21.0-32.0); CHLORIDE,CL 100 mmol/L (98-107); GLUCOSE RANDOM 113 mg/dL (74-106); POTASSIUM,K 3.6 mmol/L (3.5-5.1); SODIUM,NA 134 mmol/L (136-145)
--- NOTE | 2019-10-19 15:13 | PN ---
THC Physician - Brief Progress [id number]/05/2020 13:11[facility], PINKY - THIERRY (JAMI) - THIERRY ALVAREZNICO HARLEYSachaDate of Service 10/19/2019 13:11HPI/Violette nts of Note eICU Progress NotePt is a 44 yo F admitted 10/17 for new onset DKA. This am she is off the insulin gtt and starting a diet as tolerated. She is not on SSI, but even after eating breakfast and being off the insulin gtt since 930, her BG is only 106. The bedside team would like to continue to m onitor her for now and are concerned that she may have other underlying causes of her metabolic acido sis. Her BG was > 300 with a Bicarb of 20 upon admission. We will continue to monitor her BG througho ut the day, I will review her previous home meds and we will continue to trend her renal function. Ca se was discussed with her nurse Renata. eICU Recommendations:1) Continue DAT2) Monitor BG for furthe r increase3) Review home meds4) Hold on Insulin coverage for nowThank you for allowing us to particip ate in the care of your patient.Interventions [id number] disturbance - evaluation and management Intermediate-Communication with other healthcare providers and/or family
--- NOTE | 2019-10-19 15:18 | PN ---
[facility] Physician - Brief Progress [id number]/05/2020 15:12[facility] Yanique paz, PINKY - THIERRY (JAMI) - NICO PRINCEDate of Service 10/19/2019 15:12HPI/Violette nts of Note Pt is chronically on Robaxin for pain which can cause MA and PUNEET - both of which the denisse ent had upon admission with a Cr of 1.5. Will recommend continuing to hold Robaxin and offer other pa in meds as needed. BG is still only 112. Although elevated, pt may need/be able to tolerate po meds f or hyperglycemia/DM. Will continue to monitor.Interventions Intermediate-Communication with other [facility] providers and/or family, Medication change / dose adjustment
[2019-10-19] MEDS: Insulin Aspart 100 Units/ML 3 ML Pen SUBCUT SCH (17:47)
[2019-10-19 18:36] LABS: BLOOD UREA NITROGEN,BUN 5 mg/dL (7.0-18.0); CARBON DIOXIDE,CO2 25.5 mmol/L (21.0-32.0); CHLORIDE,CL 98 mmol/L (98-107); GLUCOSE RANDOM 120 mg/dL (74-106); POTASSIUM,K 3.2 mmol/L (3.5-5.1); SODIUM,NA 134 mmol/L (136-145)
[2019-10-19] MEDS ORDERED: Potassium Chloride 20 MEQ Tab.ER PO ONE (19:18)
[2019-10-19] MEDS: Lisinopril 5 MG Tab PO SCH (19:47)
[2019-10-20 06:31] LABS: BLOOD UREA NITROGEN,BUN 4 mg/dL (7.0-18.0); CARBON DIOXIDE,CO2 29.8 mmol/L (21.0-32.0); CHLORIDE,CL 98 mmol/L (98-107); GLUCOSE RANDOM 115 mg/dL (74-106); POTASSIUM,K 3.6 mmol/L (3.5-5.1); SODIUM,NA 137 mmol/L (136-145)
[2019-10-20] MEDS: Insulin Aspart 100 Units/ML 3 ML Pen SUBCUT SCH ×2 (06:57→12:01)
[2019-10-20 07:49] LABS: LIPASE 868 U/L (73-393)
[2019-10-20] MEDS ORDERED: Thiamine 100 MG Tab PO ONE (07:49)
[2019-10-20] MEDS ORDERED: Sodium Chloride 0.9% 1,000 ML IV ONE (08:03)
[2019-10-20] MEDS: Lisinopril 5 MG Tab PO SCH ×2 (08:40→14:03)
[2019-10-20] MEDS ORDERED: Folic Acid 1 MG Tab PO SCH (09:00)
--- NOTE | 2019-10-20 09:55 | PCM.PN ---
<Renée Flynn - Last Filed: 10/20/19 09:49> - General Info Date of Service: 10/20/19 Functional Status: Reports: Pain Controlled - Review of Systems HEENT: Reports: No Symptoms Pulmonary: Reports: No Symptoms Cardiovascular: Reports: No Symptoms Gastrointestinal: Reports: No Symptoms Genitourinary: Reports: No Symptoms Musculoskeletal: Reports: No Symptoms Skin: Reports: No Symptoms Neurological: Reports: No Symptoms Psychiatric: Reports: No Symptoms - Patient Data Vitals - Most Recent: Last Vital Signs Temp 97.5 F 10/20/19 07:35 Pulse 74 10/20/19 07:35 Resp 17 10/20/19 07:35 BP 146/101 H 10/20/19 08:40 Pulse Ox 98 10/20/19 07:35 Weight - Most Recent: 55.837 kg I&O - Last 24 Hours: Intake & Output 10/19/19 10/20/19 10/20/19 22:59 06:59 14:59 Intake Total 1100 1550 10 Output Total 2400 3600 Balance -1300 -2050 10 Lab Results Last 24 Hours: Laboratory Results - last 24 hr 10/18/19 10/19/19 10/19/19 Range/Units 04:25 06:30 06:30 WBC (4.0-11.0) K/uL RBC (4.30-5.90) M/uL Hgb (12.0-16.0) g/dL Hct (36.0-46.0) % MCV (80.0-98.0) fL MCH (27.0-32.0) pg MCHC (31.0-37.0) g/dL RDW Std Deviation (28.0-62.0) fl RDW Coeff of Ilya (11.0-15.0) % Plt Count (150-400) K/uL MPV (7.40-12.00) fL Neut % (Auto) (48.0-80.0) % Lymph % (Auto) (16.0-40.0) % Noble % (Auto) (0.0-15.0) % Eos % (Auto) (0.0-7.0) % Baso % (Auto) (0.0-1.5) % Neut # (Auto) (1.4-5.7) K/uL Lymph # (Auto) (0.6-2.4) K/uL Noble # (Auto) (0.0-0.8) K/uL Eos # (Auto) (0.0-0.7) K/uL Baso # (Auto) (0.0-0.1) K/uL Nucleated RBC % /100WBC Nucleated RBCs # K/uL Smear Path Review SENT TO PATHOLOGY Absolute Retic (20-80) K/uL Percent Retic (0.5-1.5) % Immature Retic Fraction % Sodium (136-145) mmol/L Potassium (3.5-5.1) mmol/L Chloride (98-107) mmol/L Carbon Dioxide (21.0-32.0) mmol/L BUN (7.0-18.0) mg/dL Creatinine (0.6-1.0) mg/dL Est Cr Clr Drug Dosing mL/min Estimated GFR (MDRD) ml/min Glucose (74-106) mg/dL POC Glucose (60-110) mg/dL Hemoglobin A1c 5.1 (4.5-6.2) % Serum Osmolality 323 H (275-295) mosm/kg Calcium (8.5-10.1) mg/dL Total Bilirubin (0.2-1.0) mg/dL AST (15-37) IU/L ALT (14-63) IU/L Alkaline Phosphatase (46-116) U/L Creatine Kinase (26-308) U/L Total Protein (6.4-8.2) g/dL Albumin (3.4-5.0) g/dL Globulin (2.6-4.0) g/dL Albumin/Globulin Ratio (0.9-1.6) Lipase (73-393) U/L Vitamin B12 (193-986) pg/mL Folate (8.60-58.90) ng/mL 10/19/19 10/19/19 10/19/19 Range/Units 10:14 10:54 12:15 WBC (4.0-11.0) K/uL RBC (4.30-5.90) M/uL Hgb (12.0-16.0) g/dL Hct (36.0-46.0) % MCV (80.0-98.0) fL MCH (27.0-32.0) pg MCHC (31.0-37.0) g/dL RDW Std Deviation (28.0-62.0) fl RDW Coeff of Ilya (11.0-15.0) % Plt Count (150-400) K/uL MPV (7.40-12.00) fL Neut % (Auto) (48.0-80.0) % Lymph % (Auto) (16.0-40.0) % Noble % (Auto) (0.0-15.0) % Eos % (Auto) (0.0-7.0) % Baso % (Auto) (0.0-1.5) % Neut # (Auto) (1.4-5.7) K/uL Lymph # (Auto) (0.6-2.4) K/uL Noble # (Auto) (0.0-0.8) K/uL Eos # (Auto) (0.0-0.7) K/uL Baso # (Auto) (0.0-0.1) K/uL Nucleated RBC % /100WBC Nucleated RBCs # K/uL Smear Path Review Absolute Retic (20-80) K/uL Percent Retic (0.5-1.5) % Immature Retic Fraction % Sodium (136-145) mmol/L Potassium (3.5-5.1) mmol/L Chloride (98-107) mmol/L Carbon Dioxide (21.0-32.0) mmol/L BUN (7.0-18.0) mg/dL Creatinine (0.6-1.0) mg/dL Est Cr Clr Drug Dosing mL/min Estimated GFR (MDRD) ml/min Glucose (74-106) mg/dL POC Glucose 79 110 125 H (60-110) mg/dL Hemoglobin A1c (4.5-6.2) % Serum Osmolality (275-295) mosm/kg Calcium (8.5-10.1) mg/dL Total Bilirubin (0.2-1.0) mg/dL AST (15-37) IU/L ALT (14-63) IU/L Alkaline Phosphatase (46-116) U/L Creatine Kinase (26-308) U/L Total Protein (6.4-8.2) g/dL Albumin (3.4-5.0) g/dL Globulin (2.6-4.0) g/dL Albumin/Globulin Ratio (0.9-1.6) Lipase (73-393) U/L Vitamin B12 (193-986) pg/mL Folate (8.60-58.90) ng/mL 10/19/19 10/19/19 10/19/19 Range/Units 12:16 13:15 14:52 WBC (4.0-11.0) K/uL RBC (4.30-5.90) M/uL Hgb (12.0-16.0) g/dL Hct (36.0-46.0) % MCV (80.0-98.0) fL MCH (27.0-32.0) pg MCHC (31.0-37.0) g/dL RDW Std Deviation (28.0-62.0) fl RDW Coeff of Ilya (11.0-15.0) % Plt Count (150-400) K/uL MPV (7.40-12.00) fL Neut % (Auto) (48.0-80.0) % Lymph % (Auto) (16.0-40.0) % Noble % (Auto) (0.0-15.0) % Eos % (Auto) (0.0-7.0) % Baso % (Auto) (0.0-1.5) % Neut # (Auto) (1.4-5.7) K/uL Lymph # (Auto) (0.6-2.4) K/uL Noble # (Auto) (0.0-0.8) K/uL Eos # (Auto) (0.0-0.7) K/uL Baso # (Auto) (0.0-0.1) K/uL Nucleated RBC % /100WBC Nucleated RBCs # K/uL Smear Path Review Absolute Retic (20-80) K/uL Percent Retic (0.5-1.5) % Immature Retic Fraction % Sodium 134 L (136-145) mmol/L Potassium 3.6 (3.5-5.1) mmol/L Chloride 100 (98-107) mmol/L Carbon Dioxide 21.7 (21.0-32.0) mmol/L BUN 3 L (7.0-18.0) mg/dL Creatinine 0.6 (0.6-1.0) mg/dL Est Cr Clr Drug Dosing 100.01 mL/min Estimated GFR (MDRD) > 60.0 ml/min Glucose 113 H (74-106) mg/dL POC Glucose 106 104 (60-110) mg/dL Hemoglobin A1c (4.5-6.2) % Serum Osmolality (275-295) mosm/kg Calcium 8.6 (8.5-10.1) mg/dL Total Bilirubin (0.2-1.0) mg/dL AST (15-37) IU/L ALT (14-63) IU/L Alkaline Phosphatase (46-116) U/L Creatine Kinase (26-308) U/L Total Protein (6.4-8.2) g/dL Albumin (3.4-5.0) g/dL Globulin (2.6-4.0) g/dL Albumin/Globulin Ratio (0.9-1.6) Lipase (73-393) U/L Vitamin B12 (193-986) pg/mL Folate (8.60-58.90) ng/mL 10/19/19 10/19/19 10/19/19 Range/Units 17:11 18:02 18:02 WBC (4.0-11.0) K/uL RBC 3.09 L (4.30-5.90) M/uL Hgb (12.0-16.0) g/dL Hct (36.0-46.0) % MCV (80.0-98.0) fL MCH (27.0-32.0) pg MCHC (31.0-37.0) g/dL RDW Std Deviation (28.0-62.0) fl RDW Coeff of Ilya (11.0-15.0) % Plt Count (150-400) K/uL MPV (7.40-12.00) fL Neut % (Auto) (48.0-80.0) % Lymph % (Auto) (16.0-40.0) % Noble % (Auto) (0.0-15.0) % Eos % (Auto) (0.0-7.0) % Baso % (Auto) (0.0-1.5) % Neut # (Auto) (1.4-5.7) K/uL Lymph # (Auto) (0.6-2.4) K/uL Noble # (Auto) (0.0-0.8) K/uL Eos # (Auto) (0.0-0.7) K/uL Baso # (Auto) (0.0-0.1) K/uL Nucleated RBC % /100WBC Nucleated RBCs # K/uL Smear Path Review Absolute Retic 34.60 (20-80) K/uL Percent Retic 1.1 (0.5-1.5) % Immature Retic Fraction 5 % Sodium 134 L (136-145) mmol/L Potassium 3.2 L (3.5-5.1) mmol/L Chloride 98 (98-107) mmol/L Carbon Dioxide 25.5 (21.0-32.0) mmol/L BUN 5 L (7.0-18.0) mg/dL Creatinine 0.7 (0.6-1.0) mg/dL Est Cr Clr Drug Dosing 85.72 mL/min Estimated GFR (MDRD) > 60.0 ml/min Glucose 120 H (74-106) mg/dL POC Glucose 134 H (60-110) mg/dL Hemoglobin A1c (4.5-6.2) % Serum Osmolality (275-295) mosm/kg Calcium 8.6 (8.5-10.1) mg/dL Total Bilirubin (0.2-1.0) mg/dL AST (15-37) IU/L ALT (14-63) IU/L Alkaline Phosphatase (46-116) U/L Creatine Kinase (26-308) U/L Total Protein (6.4-8.2) g/dL Albumin (3.4-5.0) g/dL Globulin (2.6-4.0) g/dL Albumin/Globulin Ratio (0.9-1.6) Lipase (73-393) U/L Vitamin B12 (193-986) pg/mL Folate (8.60-58.90) ng/mL 10/19/19 10/19/19 10/19/19 Range/Units 18:02 19:11 20:01 WBC (4.0-11.0) K/uL RBC (4.30-5.90) M/uL Hgb (12.0-16.0) g/dL Hct (36.0-46.0) % MCV (80.0-98.0) fL MCH (27.0-32.0) pg MCHC (31.0-37.0) g/dL RDW Std Deviation (28.0-62.0) fl RDW Coeff of Ilya (11.0-15.0) % Plt Count (150-400) K/uL MPV (7.40-12.00) fL Neut % (Auto) (48.0-80.0) % Lymph % (Auto) (16.0-40.0) % Noble % (Auto) (0.0-15.0) % Eos % (Auto) (0.0-7.0) % Baso % (Auto) (0.0-1.5) % Neut # (Auto) (1.4-5.7) K/uL Lymph # (Auto) (0.6-2.4) K/uL Noble # (Auto) (0.0-0.8) K/uL Eos # (Auto) (0.0-0.7) K/uL Baso # (Auto) (0.0-0.1) K/uL Nucleated RBC % /100WBC Nucleated RBCs # K/uL Smear Path Review Absolute Retic (20-80) K/uL Percent Retic (0.5-1.5) % Immature Retic Fraction % Sodium (136-145) mmol/L Potassium (3.5-5.1) mmol/L Chloride (98-107) mmol/L Carbon Dioxide (21.0-32.0) mmol/L BUN (7.0-18.0) mg/dL Creatinine (0.6-1.0) mg/dL Est Cr Clr Drug Dosing mL/min Estimated GFR (MDRD) ml/min Glucose (74-106) mg/dL POC Glucose 114 H 99 (60-110) mg/dL Hemoglobin A1c (4.5-6.2) % Serum Osmolality (275-295) mosm/kg Calcium (8.5-10.1) mg/dL Total Bilirubin (0.2-1.0) mg/dL AST (15-37) IU/L ALT (14-63) IU/L Alkaline Phosphatase (46-116) U/L Creatine Kinase (26-308) U/L Total Protein (6.4-8.2) g/dL Albumin (3.4-5.0) g/dL Globulin (2.6-4.0) g/dL Albumin/Globulin Ratio (0.9-1.6) Lipase (73-393) U/L Vitamin B12 490 (193-986) pg/mL Folate 2.60 L (8.60-58.90) ng/mL 10/19/19 10/20/19 10/20/19 Range/Units 22:00 00:08 02:06 WBC (4.0-11.0) K/uL RBC (4.30-5.90) M/uL Hgb (12.0-16.0) g/dL Hct (36.0-46.0) % MCV (80.0-98.0) fL MCH (27.0-32.0) pg MCHC (31.0-37.0) g/dL RDW Std Deviation (28.0-62.0) fl RDW Coeff of Ilya (11.0-15.0) % Plt Count (150-400) K/uL MPV (7.40-12.00) fL Neut % (Auto) (48.0-80.0) % Lymph % (Auto) (16.0-40.0) % Noble % (Auto) (0.0-15.0) % Eos % (Auto) (0.0-7.0) % Baso % (Auto) (0.0-1.5) % Neut # (Auto) (1.4-5.7) K/uL Lymph # (Auto) (0.6-2.4) K/uL Noble # (Auto) (0.0-0.8) K/uL Eos # (Auto) (0.0-0.7) K/uL Baso # (Auto) (0.0-0.1) K/uL Nucleated RBC % /100WBC Nucleated RBCs # K/uL Smear Path Review Absolute Retic (20-80) K/uL Percent Retic (0.5-1.5) % Immature Retic Fraction % Sodium (136-145) mmol/L Potassium (3.5-5.1) mmol/L Chloride (98-107) mmol/L Carbon Dioxide (21.0-32.0) mmol/L BUN (7.0-18.0) mg/dL Creatinine (0.6-1.0) mg/dL Est Cr Clr Drug Dosing mL/min Estimated GFR (MDRD) ml/min Glucose (74-106) mg/dL POC Glucose 92 90 125 H (60-110) mg/dL Hemoglobin A1c (4.5-6.2) % Serum Osmolality (275-295) mosm/kg Calcium (8.5-10.1) mg/dL Total Bilirubin (0.2-1.0) mg/dL AST (15-37) IU/L ALT (14-63) IU/L Alkaline Phosphatase (46-116) U/L Creatine Kinase (26-308) U/L Total Protein (6.4-8.2) g/dL Albumin (3.4-5.0) g/dL Globulin (2.6-4.0) g/dL Albumin/Globulin Ratio (0.9-1.6) Lipase (73-393) U/L Vitamin B12 (193-986) pg/mL Folate (8.60-58.90) ng/mL 10/20/19 10/20/19 10/20/19 Range/Units 05:50 05:50 05:50 WBC 4.98 (4.0-11.0) K/uL RBC 3.23 L (4.30-5.90) M/uL Hgb 11.7 L (12.0-16.0) g/dL Hct 35.8 L (36.0-46.0) % MCV 110.8 H (80.0-98.0) fL MCH 36.2 H (27.0-32.0) pg MCHC 32.7 (31.0-37.0) g/dL RDW Std Deviation 64.5 H (28.0-62.0) fl RDW Coeff of Ilya 16 H (11.0-15.0) % Plt Count 112 L (150-400) K/uL MPV 9.80 (7.40-12.00) fL Neut % (Auto) 61.9 (48.0-80.0) % Lymph % (Auto) 28.1 (16.0-40.0) % Noble % (Auto) 8.8 (0.0-15.0) % Eos % (Auto) 1.0 (0.0-7.0) % Baso % (Auto) 0.2 (0.0-1.5) % Neut # (Auto) 3.1 (1.4-5.7) K/uL Lymph # (Auto) 1.4 (0.6-2.4) K/uL Noble # (Auto) 0.4 (0.0-0.8) K/uL Eos # (Auto) 0.1 (0.0-0.7) K/uL Baso # (Auto) 0.0 (0.0-0.1) K/uL Nucleated RBC % 0.0 /100WBC Nucleated RBCs # 0 K/uL Smear Path Review Absolute Retic (20-80) K/uL Percent Retic (0.5-1.5) % Immature Retic Fraction % Sodium 137 (136-145) mmol/L Potassium 3.6 (3.5-5.1) mmol/L Chloride 98 (98-107) mmol/L Carbon Dioxide 29.8 (21.0-32.0) mmol/L BUN 4 L (7.0-18.0) mg/dL Creatinine 0.6 (0.6-1.0) mg/dL Est Cr Clr Drug Dosing 100.01 mL/min Estimated GFR (MDRD) > 60.0 ml/min Glucose 115 H (74-106) mg/dL POC Glucose 116 H (60-110) mg/dL Hemoglobin A1c (4.5-6.2) % Serum Osmolality (275-295) mosm/kg Calcium 8.9 (8.5-10.1) mg/dL Total Bilirubin 0.9 (0.2-1.0) mg/dL AST 199 H (15-37) IU/L ALT 88 H (14-63) IU/L Alkaline Phosphatase 76 (46-116) U/L Creatine Kinase (26-308) U/L Total Protein 6.8 (6.4-8.2) g/dL Albumin 3.4 (3.4-5.0) g/dL Globulin 3.4 (2.6-4.0) g/dL Albumin/Globulin Ratio 1.0 (0.9-1.6) Lipase (73-393) U/L Vitamin B12 (193-986) pg/mL Folate (8.60-58.90) ng/mL 06/06/20 Range/Units 05:55 WBC (4.0-11.0) K/uL RBC (4.30-5.90) M/uL Hgb (12.0-16.0) g/dL Hct (36.0-46.0) % MCV (80.0-98.0) fL MCH (27.0-32.0) pg MCHC (31.0-37.0) g/dL RDW Std Deviation (28.0-62.0) fl RDW Coeff of Ilya (11.0-15.0) % Plt Count (150-400) K/uL MPV (7.40-12.00) fL Neut % (Auto) (48.0-80.0) % Lymph % (Auto) (16.0-40.0) % Noble % (Auto) (0.0-15.0) % Eos % (Auto) (0.0-7.0) % Baso % (Auto) (0.0-1.5) % Neut # (Auto) (1.4-5.7) K/uL Lymph # (Auto) (0.6-2.4) K/uL Noble # (Auto) (0.0-0.8) K/uL Eos # (Auto) (0.0-0.7) K/uL Baso # (Auto) (0.0-0.1) K/uL Nucleated RBC % /100WBC Nucleated RBCs # K/uL Smear Path Review Absolute Retic (20-80) K/uL Percent Retic (0.5-1.5) % Immature Retic Fraction % Sodium (136-145) mmol/L Potassium (3.5-5.1) mmol/L Chloride (98-107) mmol/L Carbon Dioxide (21.0-32.0) mmol/L BUN (7.0-18.0) mg/dL Creatinine (0.6-1.0) mg/dL Est Cr Clr Drug Dosing mL/min Estimated GFR (MDRD) ml/min Glucose (74-106) mg/dL POC Glucose (60-110) mg/dL Hemoglobin A1c (4.5-6.2) % Serum Osmolality (275-295) mosm/kg Calcium (8.5-10.1) mg/dL Total Bilirubin (0.2-1.0) mg/dL AST (15-37) IU/L ALT (14-63) IU/L Alkaline Phosphatase (46-116) U/L Creatine Kinase 69 (26-308) U/L Total Protein (6.4-8.2) g/dL Albumin (3.4-5.0) g/dL Globulin (2.6-4.0) g/dL Albumin/Globulin Ratio (0.9-1.6) Lipase 868 H (73-393) U/L Vitamin B12 (193-986) pg/mL Folate (8.60-58.90) ng/mL Dash Results Last 24 Hours: Microbiology 10/18/19 04:48 Aerobic Blood Culture - Preliminary Blood - Venous - Lab Draw NO GROWTH AFTER 2 DAYS Anaerobic Blood Culture - Final 10/18/19 05:00 Aerobic Blood Culture - Preliminary Blood - Venous NO GROWTH AFTER 2 DAYS Anaerobic Blood Culture - Preliminary NO GROWTH AFTER 2 DAYS 10/19/19 17:20 C. difficile Antigen & Toxins A,B - Final Stool / Feces 10/19/19 17:20 Stool Occult Blood (DASH) - Final Stool / Feces Med Orders - Current: Current Medications Folic Acid (Folic Acid) 1 mg PO DAILY [facility] Last Admin: 10/20/19 08:40 Dose: 1 mg Famotidine 20 mg/ Sodium (Chloride) 10 mls @ 300 mls/hr IV DAILY [facility] Last Admin: 10/20/19 08:46 Dose: 300 mls/hr Sodium Chloride (Normal Saline) 1,000 mls @ 100 mls/hr IV STAT ONE Stop: 10/20/19 18:02 Last Admin: 10/20/19 08:25 Dose: 100 mls/hr Insulin Aspart (Novolog) 0 unit SUBCUT TIDAC [facility]; Protocol Last Admin: 10/20/19 06:57 Dose: Not Given Lisinopril (Prinivil) 5 mg PO DAILY [facility] Last Admin: 10/20/19 08:40 Dose: 5 mg Ondansetron HCl (Zofran) 4 mg IVPUSH Q4H PRN PRN Reason: Nausea Sodium Chloride (Saline Flush) 10 ml FLUSH ASDIRECTED PRN PRN Reason: Keep Vein Open Last Admin: 10/18/19 08:51 Dose: 10 ml Sodium Chloride (Saline Flush) 2.5 ml FLUSH ASDIRECTED PRN PRN Reason: Keep Vein Open Last Admin: 10/18/19 08:51 Dose: 2.5 ml Sodium Chloride (Normal Saline) 10 ml IV ASDIRECTED PRN PRN Reason: IV Use Discontinued Medications Al Hydroxide/Mg Hydroxide 15 (ml/ Lidocaine HCl 5 ml) 0 ml PO ONETIME ONE Stop: 10/18/19 04:15 Last Admin: 10/18/19 06:53 Dose: Not Given Al Hydroxide/Mg Hydroxide 15 (ml/ Lidocaine HCl 5 ml) 0 ml PO ONETIME ONE Stop: 10/18/19 06:46 Last Admin: 10/18/19 08:51 Dose: 1 each Lactated Ringer's (Ringers, Lactated) 1,000 mls @ 1,000 mls/hr IV .BOLUS ONE Stop: 10/18/19 05:11 Last Admin: 10/18/19 05:12 Dose: 1,000 mls/hr Lactated Ringer's (Ringers, Lactated) 1,000 mls @ 1,000 mls/hr IV .BOLUS ONE Stop: 10/18/19 05:25 Last Admin: 10/18/19 05:13 Dose: 1,000 mls/hr Insulin Human Regular 100 unit (/ Sodium Chloride) 100 mls @ 6 mls/hr IV TITRATE JON; Protocol Last Titration: 10/18/19 12:00 Dose: 1 unit/hr, 1 mls/hr Vancomycin HCl 1,000 gm/ (Dextrose/Water) 250 mls @ 167 mls/hr IV ONETIME ONE Stop: 10/18/19 06:28 Last Admin: 10/18/19 06:28 Dose: Not Given Lactated Ringer's (Ringers, Lactated) 1,000 mls @ 250 mls/hr IV ASDIRECTED JON Last Admin: 10/18/19 05:38 Dose: 250 mls/hr Vancomycin HCl 1 gm/ Sodium (Chloride) 250 mls @ 166 mls/hr IV ONETIME ONE Stop: 10/18/19 06:41 Last Admin: 10/18/19 06:21 Dose: 166 mls/hr Ceftriaxone Sodium/Dextrose 1 (gm/ Premix) 50 mls @ 100 mls/hr IV ONETIME ONE Stop: 10/18/19 05:44 Last Admin: 10/18/19 05:29 Dose: 100 mls/hr Sodium Chloride (Normal Saline (Advbag)) Confirm Administered Dose 250 mls @ as directed .ROUTE .[facility] ONE Stop: 10/18/19 05:19 Last Admin: 10/18/19 06:08 Dose: Not Given Ceftriaxone Sodium/Dextrose (Rocephin In Dextrose,Iso-Osm 1 Gm/50 Ml) Confirm Administered Dose 50 mls @ as directed .ROUTE .[facility] ONE Stop: 10/18/19 05:20 Last Admin: 10/18/19 05:49 Dose: Not Given Dextrose/Sodium Chloride (Dextrose 5%-Normal Saline) 1,000 mls @ 150 mls/hr IV ASDIRECTED JON Last Admin: 10/18/19 13:30 Dose: 150 mls/hr Insulin Human Regular 100 unit (/ Sodium Chloride) 100 mls @ 1 mls/hr IV TITRATE JON; Protocol Last Titration: 10/19/19 09:17 Dose: 0.5 unit/hr, 0.5 mls/hr Sodium Chloride (Normal Saline) 1,000 mls @ 100 mls/hr IV ASDIRECTED JON Last Admin: 10/18/19 20:27 Dose: 100 mls/hr Potassium Chloride/Dextrose/Sod Cl (D5 1/2 Ns W/ 40 Meq/L Kcl) 1,000 mls @ 200 mls/hr IV ASDIRECTED JON Last Admin: 10/19/19 03:29 Dose: 200 mls/hr Potassium Chloride/Dextrose/Sod Cl (D5 1/2 Ns W/ 40 Meq/L Kcl) 1,000 mls @ 200 mls/hr IV ASDIRECTED JON Last Admin: 10/19/19 09:01 Dose: 200 mls/hr Magnesium Sulfate 2 gm/ Premix 50 mls @ 50 mls/hr IV ONETIME JON Last Admin: 10/19/19 09:03 Dose: 50 mls/hr Magnesium Sulfate (Magnesium Sulfate 50%) 1 gm IV ONETIME ONE Stop: 10/19/19 08:47 Last Admin: 10/19/19 08:54 Dose: Not Given Ondansetron HCl (Zofran) 4 mg IVPUSH ONETIME ONE Stop: 10/18/19 04:13 Last Admin: 10/18/19 04:29 Dose: 4 mg Ondansetron HCl (Zofran) 4 mg IVPUSH ONETIME ONE Stop: 10/18/19 05:19 Last Admin: 10/18/19 05:30 Dose: 4 mg Potassium Chloride (Klor-Con M20) 40 meq PO ONETIME ONE Stop: 10/19/19 19:19 Last Admin: 10/19/19 19:47 Dose: 40 meq Thiamine HCl (Vitamin B-1) 100 mg PO ONETIME ONE Stop: 10/20/19 07:50 Last Admin: 10/20/19 08:46 Dose: 100 mg Vancomycin HCl (Vancocin) Confirm Administered Dose 1 gm .ROUTE .STK-MED ONE Stop: 10/18/19 05:19 Last Admin: 10/18/19 05:48 Dose: Not Given - Exam Quality Assessment: No: Supplemental Oxygen General: Alert, Oriented HEENT: EOMI Neck: Supple Lungs: Clear to Auscultation, Normal Respiratory Effort Cardiovascular: Regular Rate, Regular Rhythm GI/Abdominal Exam: Normal Bowel Sounds, Non-Tender (Female) Exam: Normal External Exam Back Exam: Normal Inspection Extremities: Normal Inspection Neurological: No New Focal Deficit Psy/Mental Status: Alert, Normal Affect, Normal Mood Sepsis Event Note - Evaluation Sepsis Screening Result: No Definite Risk - Focused Exam Vital Signs: Vital Signs Temp Pulse Resp BP BP Pulse Ox 10/20/19 08:40 146/101 H 10/20/19 07:35 97.5 F 74 17 146/101 H 98 10/20/19 04:39 98.5 F 68 16 153/104 H 98 10/20/19 00:00 98 F 62 15 158/98 H 99 Date Exam was Performed: 10/20/19 Time Exam was Performed: 09:49 - Problem List Review Problem List Initiated/Reviewed/Updated: Yes - My Orders Last 24 Hours: My Active Orders 10/19/19 16:32 Accu Check [Blood Glucose Check, Bedside] [RC] QIDACANDBED 10/19/19 17:00 Insulin Aspart [NovoLOG] See Protocol SUBCUT TIDAC 10/19/19 17:20 C DIFICILE TOXIN BY PCR CONF [MREF] Urgent STOOL CULTURE/SHIGA TOXIN [MREF] Urgent 10/19/19 19:16 Transfer Patient (Change bed) [ADT] Routine 10/19/19 19:30 lisinopriL [Prinivil] 5 mg PO DAILY 10/20/19 08:03 Sodium Chloride 0.9% [Normal Saline] 1,000 ml IV STAT 10/20/19 09:00 Folic Acid 1 mg PO DAILY - Plan Plan:: 44 yo female who presents with nausea and vomiting, that is being admitted for dehydration, and metabolic acidosis Metabolic acidosis: resolved Labs: Macrocytic anemia: elevated MCV confirmed w. peripheral smear; w. folic- acid deficiency: folic acid ordered. Hold Methacarbomol; my suspicion is ETOH is still the inciting factor despite pt. being adamant about only having 1-2 drinks 4-5 days prior; Lipase elevated this AM: restarted IV fluids and encouraged PO intake Hyperglycemia: improving w. sliding scale and TID Accu-checks (can consider glipized 5mg daily until seen by outpatient provider; however this is a hypoglycemic drug and pt. self-describes light eater; will not start Metformin either secondary to concners about Metabolic acidosis developing from either an inborn enzyme defeiceny and PUNEET); will monitor. Transaminitis: will order a Hep panel; again most likely some glucose vs ETH sensitivity. Will monitor; no signs of jaundice and or hx .of exposure per patient. <Addie Roy - Last Filed: 10/22/19 23:39> - Patient Data Vitals - Most Recent: Last Vital Signs Temp 36.8 C 10/20/19 14:57 Pulse 70 10/20/19 14:57 Resp 17 10/20/19 14:57 BP 154/92 H 10/20/19 14:57 Pulse Ox 99 10/20/19 14:57 Lab Results Last 24 Hours: Laboratory Results - last 24 hr 10/18/19 Range/Units 05:00 Miscellaneous Test COMMENT Dash Results Last 24 Hours: Microbiology 10/18/19 04:48 Aerobic Blood Culture - Preliminary Blood - Venous - Lab Draw NO GROWTH AFTER 4 DAYS Anaerobic Blood Culture - Final 10/18/19 05:00 Aerobic Blood Culture - Preliminary Blood - Venous NO GROWTH AFTER 4 DAYS Anaerobic Blood Culture - Preliminary NO GROWTH AFTER 4 DAYS Med Orders - Current: Current Medications Discontinued Medications Al Hydroxide/Mg Hydroxide 15 (ml/ Lidocaine HCl 5 ml) 0 ml PO ONETIME ONE Stop: 10/18/19 04:15 Last Admin: 10/18/19 06:53 Dose: Not Given Al Hydroxide/Mg Hydroxide 15 (ml/ Lidocaine HCl 5 ml) 0 ml PO ONETIME ONE Stop: 10/18/19 06:46 Last Admin: 10/18/19 08:51 Dose: 1 each Folic Acid (Folic Acid) 1 mg PO DAILY JON Last Admin: 10/20/19 08:40 Dose: 1 mg Lactated Ringer's (Ringers, Lactated) 1,000 mls @ 1,000 mls/hr IV .BOLUS ONE Stop: 10/18/19 05:11 Last Admin: 10/18/19 05:12 Dose: 1,000 mls/hr Lactated Ringer's (Ringers, Lactated) 1,000 mls @ 1,000 mls/hr IV .BOLUS ONE Stop: 10/18/19 05:25 Last Admin: 10/18/19 05:13 Dose: 1,000 mls/hr Insulin Human Regular 100 unit (/ Sodium Chloride) 100 mls @ 6 mls/hr IV TITRATE JON; Protocol Last Titration: 10/18/19 12:00 Dose: 1 unit/hr, 1 mls/hr Vancomycin HCl 1,000 gm/ (Dextrose/Water) 250 mls @ 167 mls/hr IV ONETIME ONE Stop: 10/18/19 06:28 Last Admin: 10/18/19 06:28 Dose: Not Given Lactated Ringer's (Ringers, Lactated) 1,000 mls @ 250 mls/hr IV ASDIRECTED [facility] Last Admin: 10/18/19 05:38 Dose: 250 mls/hr Vancomycin HCl 1 gm/ Sodium (Chloride) 250 mls @ 166 mls/hr IV ONETIME ONE Stop: 10/18/19 06:41 Last Admin: 10/18/19 06:21 Dose: 166 mls/hr Ceftriaxone Sodium/Dextrose 1 (gm/ Premix) 50 mls @ 100 mls/hr IV ONETIME ONE Stop: 10/18/19 05:44 Last Admin: 10/18/19 05:29 Dose: 100 mls/hr Sodium Chloride (Normal Saline (Advbag)) Confirm Administered Dose 250 mls @ as directed .ROUTE .STK-MED ONE Stop: 10/18/19 05:19 Last Admin: 10/18/19 06:08 Dose: Not Given Ceftriaxone Sodium/Dextrose (Rocephin In Dextrose,Iso-Osm 1 Gm/50 Ml) Confirm Administered Dose 50 mls @ as directed .ROUTE .STK-MED ONE Stop: 10/18/19 05:20 Last Admin: 10/18/19 05:49 Dose: Not Given Dextrose/Sodium Chloride (Dextrose 5%-Normal Saline) 1,000 mls @ 150 mls/hr IV ASDIRECTED JON Last Admin: 10/18/19 13:30 Dose: 150 mls/hr Insulin Human Regular 100 unit (/ Sodium Chloride) 100 mls @ 1 mls/hr IV TITRATE JON; Protocol Last Titration: 10/19/19 09:17 Dose: 0.5 unit/hr, 0.5 mls/hr Famotidine 20 mg/ Sodium (Chloride) 10 mls @ 300 mls/hr IV DAILY JON Last Admin: 10/20/19 08:46 Dose: 300 mls/hr Sodium Chloride (Normal Saline) 1,000 mls @ 100 mls/hr IV ASDIRECTED JON Last Admin: 10/18/19 20:27 Dose: 100 mls/hr Potassium Chloride/Dextrose/Sod Cl (D5 1/2 Ns W/ 40 Meq/L Kcl) 1,000 mls @ 200 mls/hr IV ASDIRECTED JON Last Admin: 10/19/19 03:29 Dose: 200 mls/hr Potassium Chloride/Dextrose/Sod Cl (D5 1/2 Ns W/ 40 Meq/L Kcl) 1,000 mls @ 200 mls/hr IV ASDIRECTED JON Last Admin: 10/19/19 09:01 Dose: 200 mls/hr Magnesium Sulfate 2 gm/ Premix 50 mls @ 50 mls/hr IV ONETIME JON Last Admin: 10/19/19 09:03 Dose: 50 mls/hr Sodium Chloride (Normal Saline) 1,000 mls @ 100 mls/hr IV STAT ONE Stop: 10/20/19 18:02 Last Admin: 10/20/19 08:25 Dose: 100 mls/hr Multivitamins/Minerals 10 ml/Thiamine HCl 100 mg/ Folic Acid 1 mg/ Sodium Chloride 1,011.2 mls @ 999 mls/hr IV ONETIME ONE Stop: 10/20/19 12:15 Last Admin: 10/20/19 12:02 Dose: 999 mls/hr Insulin Aspart (Novolog) 0 unit SUBCUT TIDAC [facility]; Protocol Last Admin: 10/20/19 12:01 Dose: Not Given Lisinopril (Prinivil) 5 mg PO DAILY [facility] Last Admin: 10/20/19 14:03 Dose: 5 mg Magnesium Sulfate (Magnesium Sulfate 50%) 1 gm IV ONETIME ONE Stop: 10/19/19 08:47 Last Admin: 10/19/19 08:54 Dose: Not Given Ondansetron HCl (Zofran) 4 mg IVPUSH ONETIME ONE Stop: 10/18/19 04:13 Last Admin: 10/18/19 04:29 Dose: 4 mg Ondansetron HCl (Zofran) 4 mg IVPUSH ONETIME ONE Stop: 10/18/19 05:19 Last Admin: 10/18/19 05:30 Dose: 4 mg Ondansetron HCl (Zofran) 4 mg IVPUSH Q4H PRN PRN Reason: Nausea Potassium Chloride (Klor-Con M20) 40 meq PO ONETIME ONE Stop: 10/19/19 19:19 Last Admin: 10/19/19 19:47 Dose: 40 meq Sodium Chloride (Saline Flush) 10 ml FLUSH ASDIRECTED PRN PRN Reason: Keep Vein Open Last Admin: 10/18/19 08:51 Dose: 10 ml Sodium Chloride (Saline Flush) 2.5 ml FLUSH ASDIRECTED PRN PRN Reason: Keep Vein Open Last Admin: 10/18/19 08:51 Dose: 2.5 ml Sodium Chloride (Normal Saline) 10 ml IV ASDIRECTED PRN PRN Reason: IV Use Thiamine HCl (Vitamin B-1) 100 mg PO ONETIME ONE Stop: 10/20/19 07:50 Last Admin: 10/20/19 08:46 Dose: 100 mg Vancomycin HCl (Vancocin) Confirm Administered Dose 1 gm .ROUTE .STK-MED ONE Stop: 10/18/19 05:19 Last Admin: 10/18/19 05:48 Dose: Not Given - Plan Plan:: I have seen and evaluated the patient and agree with the residents note unless specified in my note
[2019-10-20] MEDS ORDERED: MVI, Adult with Vitamin K 10 ML, Thiamine 100 MG, Folic Acid 1 MG in Sodium Chloride 0.... IV ONE ×4 (11:15)
--- NOTE | 2019-10-20 12:14 | PCM.DCSUM1 ---
<Renée Flynn - Last Filed: 10/20/19 13:35> Discharge Summary - Hospital Course Free Text/Narrative:: Discharge summary Admission date Discharge date Admission diagnoses: Discharge summary Consultations:eICU Procedures:none Hospital course: Patient is a 44-year-old female with a significant past medical history of multiple sclerosis, hypertension on methocarbamol and lisinopril respectively; presenting with 1 to 2 days of intractable nausea and vomiting and abdominal discomfort. Patient was admitted to the ED with concerns about metabolic acidosis with anion gap of 27. Patient did not have any history of diabetes or recent alcohol abuse per patient; concerns about possible ingestions of other and anions were explored including calling [employer] however no other etiology could be discerned. Urine tox, blood alcohol level and other measures were negative. Lab values were suggestive of anion gap/non-anion gap metabolic acidosis with a pH of 7.17, PCO2 of 22 and a bicarb of 8, anion gap of 27. Patient was started on insulin drip and rehydrated with IV fluids. Patient responded to IV fluids and insulin drip with subsequent hyperglycemia of 300 stabilizing to 100-110; anion gap closing following morning at 11; and patient clinically feeling better and looking better. Other etiologies were also discussed and explored including multiple myeloma for which a serum protein electrophoresis was sent; TSH which was normal. Transaminitis elevated however trending down during inpatient stay; hep panel and liver ultrasound prescription written. Lipase elevated; however clinically patient was not complaining of any pain nor any abdominal tenderness appreciated examination. Electrolytes were repleted throughout stay however folate was deficient and patient was started on folate. B12 wnl Concerns about possible underreporting of actual alcohol use was brought up to patient; patient endorsed severe anxiety at times; including picking at her fingers and possibly pulling out her eyelashes due to anxiety and stress. Recommended outpatient follow-up with psychiatry; paperwork provided to patient regarding appointment with Dr. Mosqueda of outpatient psychiatry; patient will possibly visit with his physician via telehealth visit. Still denied excess use of ETOH ; maintaing that she only had 1-2 drinks 4 days earlier; alson endorsing not using her muscle relaxer x 1-2 weeks. Due to anxiety however, pt does endorse reduced appetite and eating less for no discernible reason. Some concerns about medication also being the cause of his metabolic acidosis were brought up; advised to discontinue methocarbamol and other medications. Reduce dose of lisinopril to 5 mg daily. Advised to absolutely discontinue alcohol use until definitive diagnosis has been established. Since transaminitis and lipase were still elevated at discharge; prescription for repeat CBC, CMP and lipase were ordered. Patient was discharged home with additional folate and thiamine; advised to follow-up in the primary care setting. Patient discharged in stable condition. Discharge condition:Stable Disposition:Home Follow-up: PCP PSychiatry - Discharge Data Discharge Date: 10/20/19 Discharge Disposition: Home, Self-Care 01 Condition: Stable - Referral to Home Health Primary Care Physician: Waqar Isidro MD - Discharge Plan *PRESCRIPTION DRUG MONITORING PROGRAM REVIEWED*: Not Applicable *COPY OF PRESCRIPTION DRUG MONITORING REPORT IN PATIENT BRIANNA: Not Applicable Prescriptions/Med Rec: Folic Acid 1 mg PO DAILY 30 Days #30 tablet Thiamine [Vitamin B-1] 100 mg PO BEDTIME 10 Days #10 tab Home Medications: Home Meds Esomeprazole [NexIUM] 40 mg PO DAILY 10/18/19 [History] Folic Acid 1 mg PO DAILY 30 Days #30 tablet 10/20/19 [Rx] Thiamine [Vitamin B-1] 100 mg PO BEDTIME 10 Days #10 tab 10/20/19 [Rx] lisinopriL [Prinivil] 5 mg PO DAILY tablet 10/20/19 [Rx] Patient Handouts: Thiamine, Vitamin B1 tablets, Metabolic Acidosis, Folic Acid , Vitamin B9 tablets Referrals: Alma Delia Garcia [Ordering Only Provider] - (Call the clinic on Tuesday, and ask to see Dr. Mosqueda. He does telepsych certain days of the week. ) Waqar Isirdo MD [Primary Care Provider] - 10/25/19 10:30 am - Discharge Summary/Plan Comment DC Time >30 min.: No - Patient Data Vitals - Most Recent: Last Vital Signs Temp 97.5 F 10/20/19 07:35 Pulse 74 10/20/19 07:35 Resp 17 10/20/19 07:35 BP 146/101 H 10/20/19 08:40 Pulse Ox 98 10/20/19 07:35 Weight - Most Recent: 55.837 kg I&O - Last 24 hours: Intake & Output 10/19/19 10/20/19 10/20/19 22:59 06:59 14:59 Intake Total 1100 1550 10 Output Total 2400 3600 Balance -1300 -2050 10 Lab Results - Last 24 hrs: Laboratory Results - last 24 hr 10/19/19 10/19/19 10/19/19 Range/Units 06:30 12:15 12:16 WBC (4.0-11.0) K/uL RBC (4.30-5.90) M/uL Hgb (12.0-16.0) g/dL Hct (36.0-46.0) % MCV (80.0-98.0) fL MCH (27.0-32.0) pg MCHC (31.0-37.0) g/dL RDW Std Deviation (28.0-62.0) fl RDW Coeff of Ilya (11.0-15.0) % Plt Count (150-400) K/uL MPV (7.40-12.00) fL Neut % (Auto) (48.0-80.0) % Lymph % (Auto) (16.0-40.0) % [place] % (Auto) (0.0-15.0) % Eos % (Auto) (0.0-7.0) % Baso % (Auto) (0.0-1.5) % Neut # (Auto) (1.4-5.7) K/uL Lymph # (Auto) (0.6-2.4) K/uL [place] # (Auto) (0.0-0.8) K/uL Eos # (Auto) (0.0-0.7) K/uL Baso # (Auto) (0.0-0.1) K/uL Nucleated RBC % /100WBC Nucleated RBCs # K/uL Smear Path Review SENT TO PATHOLOGY Absolute Retic (20-80) K/uL Percent Retic (0.5-1.5) % Immature Retic Fraction % Sodium 134 L (136-145) mmol/L Potassium 3.6 (3.5-5.1) mmol/L Chloride 100 (98-107) mmol/L Carbon Dioxide 21.7 (21.0-32.0) mmol/L BUN 3 L (7.0-18.0) mg/dL Creatinine 0.6 (0.6-1.0) mg/dL Est Cr Clr Drug Dosing 100.01 mL/min Estimated GFR (MDRD) > 60.0 ml/min Glucose 113 H (74-106) mg/dL POC Glucose 125 H (60-110) mg/dL Calcium 8.6 (8.5-10.1) mg/dL Total Bilirubin (0.2-1.0) mg/dL AST (15-37) IU/L ALT (14-63) IU/L Alkaline Phosphatase (46-116) U/L Creatine Kinase (26-308) U/L Total Protein (6.4-8.2) g/dL Albumin (3.4-5.0) g/dL Globulin (2.6-4.0) g/dL Albumin/Globulin Ratio (0.9-1.6) Lipase (73-393) U/L Vitamin B12 (193-986) pg/mL Folate (8.60-58.90) ng/mL 10/19/19 10/19/19 10/19/19 Range/Units 13:15 14:52 17:11 WBC (4.0-11.0) K/uL RBC (4.30-5.90) M/uL Hgb (12.0-16.0) g/dL Hct (36.0-46.0) % MCV (80.0-98.0) fL MCH (27.0-32.0) pg MCHC (31.0-37.0) g/dL RDW Std Deviation (28.0-62.0) fl RDW Coeff of Ilya (11.0-15.0) % Plt Count (150-400) K/uL MPV (7.40-12.00) fL Neut % (Auto) (48.0-80.0) % Lymph % (Auto) (16.0-40.0) % [place] % (Auto) (0.0-15.0) % Eos % (Auto) (0.0-7.0) % Baso % (Auto) (0.0-1.5) % Neut # (Auto) (1.4-5.7) K/uL Lymph # (Auto) (0.6-2.4) K/uL [place] # (Auto) (0.0-0.8) K/uL Eos # (Auto) (0.0-0.7) K/uL Baso # (Auto) (0.0-0.1) K/uL Nucleated RBC % /100WBC Nucleated RBCs # K/uL Smear Path Review Absolute Retic (20-80) K/uL Percent Retic (0.5-1.5) % Immature Retic Fraction % Sodium (136-145) mmol/L Potassium (3.5-5.1) mmol/L Chloride (98-107) mmol/L Carbon Dioxide (21.0-32.0) mmol/L BUN (7.0-18.0) mg/dL Creatinine (0.6-1.0) mg/dL Est Cr Clr Drug Dosing mL/min Estimated GFR (MDRD) ml/min Glucose (74-106) mg/dL POC Glucose 106 104 134 H (60-110) mg/dL Calcium (8.5-10.1) mg/dL Total Bilirubin (0.2-1.0) mg/dL AST (15-37) IU/L ALT (14-63) IU/L Alkaline Phosphatase (46-116) U/L Creatine Kinase (26-308) U/L Total Protein (6.4-8.2) g/dL Albumin (3.4-5.0) g/dL Globulin (2.6-4.0) g/dL Albumin/Globulin Ratio (0.9-1.6) Lipase (73-393) U/L Vitamin B12 (193-986) pg/mL Folate (8.60-58.90) ng/mL 10/19/19 10/19/19 10/19/19 Range/Units 18:02 18:02 18:02 WBC (4.0-11.0) K/uL RBC 3.09 L (4.30-5.90) M/uL Hgb (12.0-16.0) g/dL Hct (36.0-46.0) % MCV (80.0-98.0) fL MCH (27.0-32.0) pg MCHC (31.0-37.0) g/dL RDW Std Deviation (28.0-62.0) fl RDW Coeff of Ilya (11.0-15.0) % Plt Count (150-400) K/uL MPV (7.40-12.00) fL Neut % (Auto) (48.0-80.0) % Lymph % (Auto) (16.0-40.0) % [place] % (Auto) (0.0-15.0) % Eos % (Auto) (0.0-7.0) % Baso % (Auto) (0.0-1.5) % Neut # (Auto) (1.4-5.7) K/uL Lymph # (Auto) (0.6-2.4) K/uL [place] # (Auto) (0.0-0.8) K/uL Eos # (Auto) (0.0-0.7) K/uL Baso # (Auto) (0.0-0.1) K/uL Nucleated RBC % /100WBC Nucleated RBCs # K/uL Smear Path Review Absolute Retic 34.60 (20-80) K/uL Percent Retic 1.1 (0.5-1.5) % Immature Retic Fraction 5 % Sodium 134 L (136-145) mmol/L Potassium 3.2 L (3.5-5.1) mmol/L Chloride 98 (98-107) mmol/L Carbon Dioxide 25.5 (21.0-32.0) mmol/L BUN 5 L (7.0-18.0) mg/dL Creatinine 0.7 (0.6-1.0) mg/dL Est Cr Clr Drug Dosing 85.72 mL/min Estimated GFR (MDRD) > 60.0 ml/min Glucose 120 H (74-106) mg/dL POC Glucose (60-110) mg/dL Calcium 8.6 (8.5-10.1) mg/dL Total Bilirubin (0.2-1.0) mg/dL AST (15-37) IU/L ALT (14-63) IU/L Alkaline Phosphatase (46-116) U/L Creatine Kinase (26-308) U/L Total Protein (6.4-8.2) g/dL Albumin (3.4-5.0) g/dL Globulin (2.6-4.0) g/dL Albumin/Globulin Ratio (0.9-1.6) Lipase (73-393) U/L Vitamin B12 490 (193-986) pg/mL Folate 2.60 L (8.60-58.90) ng/mL 10/19/19 10/19/19 10/19/19 Range/Units 19:11 20:01 22:00 WBC (4.0-11.0) K/uL RBC (4.30-5.90) M/uL Hgb (12.0-16.0) g/dL Hct (36.0-46.0) % MCV (80.0-98.0) fL MCH (27.0-32.0) pg MCHC (31.0-37.0) g/dL RDW Std Deviation (28.0-62.0) fl RDW Coeff of Ilya (11.0-15.0) % Plt Count (150-400) K/uL MPV (7.40-12.00) fL Neut % (Auto) (48.0-80.0) % Lymph % (Auto) (16.0-40.0) % [place] % (Auto) (0.0-15.0) % Eos % (Auto) (0.0-7.0) % Baso % (Auto) (0.0-1.5) % Neut # (Auto) (1.4-5.7) K/uL Lymph # (Auto) (0.6-2.4) K/uL [place] # (Auto) (0.0-0.8) K/uL Eos # (Auto) (0.0-0.7) K/uL Baso # (Auto) (0.0-0.1) K/uL Nucleated RBC % /100WBC Nucleated RBCs # K/uL Smear Path Review Absolute Retic (20-80) K/uL Percent Retic (0.5-1.5) % Immature Retic Fraction % Sodium (136-145) mmol/L Potassium (3.5-5.1) mmol/L Chloride (98-107) mmol/L Carbon Dioxide (21.0-32.0) mmol/L BUN (7.0-18.0) mg/dL Creatinine (0.6-1.0) mg/dL Est Cr Clr Drug Dosing mL/min Estimated GFR (MDRD) ml/min Glucose (74-106) mg/dL POC Glucose 114 H 99 92 (60-110) mg/dL Calcium (8.5-10.1) mg/dL Total Bilirubin (0.2-1.0) mg/dL AST (15-37) IU/L ALT (14-63) IU/L Alkaline Phosphatase (46-116) U/L Creatine Kinase (26-308) U/L Total Protein (6.4-8.2) g/dL Albumin (3.4-5.0) g/dL Globulin (2.6-4.0) g/dL Albumin/Globulin Ratio (0.9-1.6) Lipase (73-393) U/L Vitamin B12 (193-986) pg/mL Folate (8.60-58.90) ng/mL 10/20/19 10/20/19 10/20/19 Range/Units 00:08 02:06 05:50 WBC 4.98 (4.0-11.0) K/uL RBC 3.23 L (4.30-5.90) M/uL Hgb 11.7 L (12.0-16.0) g/dL Hct 35.8 L (36.0-46.0) % MCV 110.8 H (80.0-98.0) fL MCH 36.2 H (27.0-32.0) pg MCHC 32.7 (31.0-37.0) g/dL RDW Std Deviation 64.5 H (28.0-62.0) fl RDW Coeff of Ilya 16 H (11.0-15.0) % Plt Count 112 L (150-400) K/uL MPV 9.80 (7.40-12.00) fL Neut % (Auto) 61.9 (48.0-80.0) % Lymph % (Auto) 28.1 (16.0-40.0) % [place] % (Auto) 8.8 (0.0-15.0) % Eos % (Auto) 1.0 (0.0-7.0) % Baso % (Auto) 0.2 (0.0-1.5) % Neut # (Auto) 3.1 (1.4-5.7) K/uL Lymph # (Auto) 1.4 (0.6-2.4) K/uL [place] # (Auto) 0.4 (0.0-0.8) K/uL Eos # (Auto) 0.1 (0.0-0.7) K/uL Baso # (Auto) 0.0 (0.0-0.1) K/uL Nucleated RBC % 0.0 /100WBC Nucleated RBCs # 0 K/uL Smear Path Review Absolute Retic (20-80) K/uL Percent Retic (0.5-1.5) % Immature Retic Fraction % Sodium (136-145) mmol/L Potassium (3.5-5.1) mmol/L Chloride (98-107) mmol/L Carbon Dioxide (21.0-32.0) mmol/L BUN (7.0-18.0) mg/dL Creatinine (0.6-1.0) mg/dL Est Cr Clr Drug Dosing mL/min Estimated GFR (MDRD) ml/min Glucose (74-106) mg/dL POC Glucose 90 125 H (60-110) mg/dL Calcium (8.5-10.1) mg/dL Total Bilirubin (0.2-1.0) mg/dL AST (15-37) IU/L ALT (14-63) IU/L Alkaline Phosphatase (46-116) U/L Creatine Kinase (26-308) U/L Total Protein (6.4-8.2) g/dL Albumin (3.4-5.0) g/dL Globulin (2.6-4.0) g/dL Albumin/Globulin Ratio (0.9-1.6) Lipase (73-393) U/L Vitamin B12 (193-986) pg/mL Folate (8.60-58.90) ng/mL 10/20/19 10/20/19 10/20/19 Range/Units 05:50 05:50 05:55 WBC (4.0-11.0) K/uL RBC (4.30-5.90) M/uL Hgb (12.0-16.0) g/dL Hct (36.0-46.0) % MCV (80.0-98.0) fL MCH (27.0-32.0) pg MCHC (31.0-37.0) g/dL RDW Std Deviation (28.0-62.0) fl RDW Coeff of Ilya (11.0-15.0) % Plt Count (150-400) K/uL MPV (7.40-12.00) fL Neut % (Auto) (48.0-80.0) % Lymph % (Auto) (16.0-40.0) % [place] % (Auto) (0.0-15.0) % Eos % (Auto) (0.0-7.0) % Baso % (Auto) (0.0-1.5) % Neut # (Auto) (1.4-5.7) K/uL Lymph # (Auto) (0.6-2.4) K/uL [place] # (Auto) (0.0-0.8) K/uL Eos # (Auto) (0.0-0.7) K/uL Baso # (Auto) (0.0-0.1) K/uL Nucleated RBC % /100WBC Nucleated RBCs # K/uL Smear Path Review Absolute Retic (20-80) K/uL Percent Retic (0.5-1.5) % Immature Retic Fraction % Sodium 137 (136-145) mmol/L Potassium 3.6 (3.5-5.1) mmol/L Chloride 98 (98-107) mmol/L Carbon Dioxide 29.8 (21.0-32.0) mmol/L BUN 4 L (7.0-18.0) mg/dL Creatinine 0.6 (0.6-1.0) mg/dL Est Cr Clr Drug Dosing 100.01 mL/min Estimated GFR (MDRD) > 60.0 ml/min Glucose 115 H (74-106) mg/dL POC Glucose 116 H (60-110) mg/dL Calcium 8.9 (8.5-10.1) mg/dL Total Bilirubin 0.9 (0.2-1.0) mg/dL AST 199 H (15-37) IU/L ALT 88 H (14-63) IU/L Alkaline Phosphatase 76 (46-116) U/L Creatine Kinase 69 (26-308) U/L Total Protein 6.8 (6.4-8.2) g/dL Albumin 3.4 (3.4-5.0) g/dL Globulin 3.4 (2.6-4.0) g/dL Albumin/Globulin Ratio 1.0 (0.9-1.6) Lipase 868 H (73-393) U/L Vitamin B12 (193-986) pg/mL Folate (8.60-58.90) ng/mL 06/06/20 Range/Units 11:40 WBC (4.0-11.0) K/uL RBC (4.30-5.90) M/uL Hgb (12.0-16.0) g/dL Hct (36.0-46.0) % MCV (80.0-98.0) fL MCH (27.0-32.0) pg MCHC (31.0-37.0) g/dL RDW Std Deviation (28.0-62.0) fl RDW Coeff of Ilya (11.0-15.0) % Plt Count (150-400) K/uL MPV (7.40-12.00) fL Neut % (Auto) (48.0-80.0) % Lymph % (Auto) (16.0-40.0) % [place] % (Auto) (0.0-15.0) % Eos % (Auto) (0.0-7.0) % Baso % (Auto) (0.0-1.5) % Neut # (Auto) (1.4-5.7) K/uL Lymph # (Auto) (0.6-2.4) K/uL [place] # (Auto) (0.0-0.8) K/uL Eos # (Auto) (0.0-0.7) K/uL Baso # (Auto) (0.0-0.1) K/uL Nucleated RBC % /100WBC Nucleated RBCs # K/uL Smear Path Review Absolute Retic (20-80) K/uL Percent Retic (0.5-1.5) % Immature Retic Fraction % Sodium (136-145) mmol/L Potassium (3.5-5.1) mmol/L Chloride (98-107) mmol/L Carbon Dioxide (21.0-32.0) mmol/L BUN (7.0-18.0) mg/dL Creatinine (0.6-1.0) mg/dL Est Cr Clr Drug Dosing mL/min Estimated GFR (MDRD) ml/min Glucose (74-106) mg/dL POC Glucose 118 H (60-110) mg/dL Calcium (8.5-10.1) mg/dL Total Bilirubin (0.2-1.0) mg/dL AST (15-37) IU/L ALT (14-63) IU/L Alkaline Phosphatase (46-116) U/L Creatine Kinase (26-308) U/L Total Protein (6.4-8.2) g/dL Albumin (3.4-5.0) g/dL Globulin (2.6-4.0) g/dL Albumin/Globulin Ratio (0.9-1.6) Lipase (73-393) U/L Vitamin B12 (193-986) pg/mL Folate (8.60-58.90) ng/mL SCOTT Results - Last 24 hrs: Microbiology 10/18/19 04:48 Aerobic Blood Culture - Preliminary Blood - Venous - Lab Draw NO GROWTH AFTER 2 DAYS Anaerobic Blood Culture - Final 10/18/19 05:00 Aerobic Blood Culture - Preliminary Blood - Venous NO GROWTH AFTER 2 DAYS Anaerobic Blood Culture - Preliminary NO GROWTH AFTER 2 DAYS 10/19/19 17:20 C. difficile Antigen & Toxins A,B - Final Stool / Feces 10/19/19 17:20 Stool Occult Blood (SCOTT) - Final Stool / Feces Med Orders - Current: Current Medications Folic Acid (Folic Acid) 1 mg PO DAILY [facility] Last Admin: 10/20/19 08:40 Dose: 1 mg Famotidine 20 mg/ Sodium (Chloride) 10 mls @ 300 mls/hr IV DAILY [facility] Last Admin: 10/20/19 08:46 Dose: 300 mls/hr Sodium Chloride (Normal Saline) 1,000 mls @ 100 mls/hr IV STAT ONE Stop: 10/20/19 18:02 Last Admin: 10/20/19 08:25 Dose: 100 mls/hr Multivitamins/Minerals 10 ml/Thiamine HCl 100 mg/ Folic Acid 1 mg/ Sodium Chloride 1,011.2 mls @ 999 mls/hr IV ONETIME ONE Stop: 10/20/19 12:15 Last Admin: 10/20/19 12:02 Dose: 999 mls/hr Insulin Aspart (Novolog) 0 unit SUBCUT TIDAC [facility]; Protocol Last Admin: 10/20/19 12:01 Dose: Not Given Lisinopril (Prinivil) 5 mg PO DAILY [facility] Last Admin: 10/20/19 08:40 Dose: 5 mg Ondansetron HCl (Zofran) 4 mg IVPUSH Q4H PRN PRN Reason: Nausea Sodium Chloride (Saline Flush) 10 ml FLUSH ASDIRECTED PRN PRN Reason: Keep Vein Open Last Admin: 10/18/19 08:51 Dose: 10 ml Sodium Chloride (Saline Flush) 2.5 ml FLUSH ASDIRECTED PRN PRN Reason: Keep Vein Open Last Admin: 10/18/19 08:51 Dose: 2.5 ml Sodium Chloride (Normal Saline) 10 ml IV ASDIRECTED PRN PRN Reason: IV Use Discontinued Medications Al Hydroxide/Mg Hydroxide 15 (ml/ Lidocaine HCl 5 ml) 0 ml PO ONETIME ONE Stop: 10/18/19 04:15 Last Admin: 10/18/19 06:53 Dose: Not Given Al Hydroxide/Mg Hydroxide 15 (ml/ Lidocaine HCl 5 ml) 0 ml PO ONETIME ONE Stop: 10/18/19 06:46 Last Admin: 10/18/19 08:51 Dose: 1 each Lactated Ringer's (Ringers, Lactated) 1,000 mls @ 1,000 mls/hr IV .BOLUS ONE Stop: 10/18/19 05:11 Last Admin: 10/18/19 05:12 Dose: 1,000 mls/hr Lactated Ringer's (Ringers, Lactated) 1,000 mls @ 1,000 mls/hr IV .BOLUS ONE Stop: 10/18/19 05:25 Last Admin: 10/18/19 05:13 Dose: 1,000 mls/hr Insulin Human Regular 100 unit (/ Sodium Chloride) 100 mls @ 6 mls/hr IV TITRATE JON; Protocol Last Titration: 10/18/19 12:00 Dose: 1 unit/hr, 1 mls/hr Vancomycin HCl 1,000 gm/ (Dextrose/Water) 250 mls @ 167 mls/hr IV ONETIME ONE Stop: 10/18/19 06:28 Last Admin: 10/18/19 06:28 Dose: Not Given Lactated Ringer's (Ringers, Lactated) 1,000 mls @ 250 mls/hr IV ASDIRECTED JON Last Admin: 10/18/19 05:38 Dose: 250 mls/hr Vancomycin HCl 1 gm/ Sodium (Chloride) 250 mls @ 166 mls/hr IV ONETIME ONE Stop: 10/18/19 06:41 Last Admin: 10/18/19 06:21 Dose: 166 mls/hr Ceftriaxone Sodium/Dextrose 1 (gm/ Premix) 50 mls @ 100 mls/hr IV ONETIME ONE Stop: 10/18/19 05:44 Last Admin: 10/18/19 05:29 Dose: 100 mls/hr Sodium Chloride (Normal Saline (Advbag)) Confirm Administered Dose 250 mls @ as directed .ROUTE .STK-MED ONE Stop: 10/18/19 05:19 Last Admin: 10/18/19 06:08 Dose: Not Given Ceftriaxone Sodium/Dextrose (Rocephin In Dextrose,Iso-Osm 1 Gm/50 Ml) Confirm Administered Dose 50 mls @ as directed .ROUTE .STK-MED ONE Stop: 10/18/19 05:20 Last Admin: 10/18/19 05:49 Dose: Not Given Dextrose/Sodium Chloride (Dextrose 5%-Normal Saline) 1,000 mls @ 150 mls/hr IV ASDIRECTED JON Last Admin: 10/18/19 13:30 Dose: 150 mls/hr Insulin Human Regular 100 unit (/ Sodium Chloride) 100 mls @ 1 mls/hr IV TITRATE JON; Protocol Last Titration: 10/19/19 09:17 Dose: 0.5 unit/hr, 0.5 mls/hr Sodium Chloride (Normal Saline) 1,000 mls @ 100 mls/hr IV ASDIRECTED JON Last Admin: 10/18/19 20:27 Dose: 100 mls/hr Potassium Chloride/Dextrose/Sod Cl (D5 1/2 Ns W/ 40 Meq/L Kcl) 1,000 mls @ 200 mls/hr IV ASDIRECTED JON Last Admin: 10/19/19 03:29 Dose: 200 mls/hr Potassium Chloride/Dextrose/Sod Cl (D5 1/2 Ns W/ 40 Meq/L Kcl) 1,000 mls @ 200 mls/hr IV ASDIRECTED JON Last Admin: 10/19/19 09:01 Dose: 200 mls/hr Magnesium Sulfate 2 gm/ Premix 50 mls @ 50 mls/hr IV ONETIME JON Last Admin: 10/19/19 09:03 Dose: 50 mls/hr Magnesium Sulfate (Magnesium Sulfate 50%) 1 gm IV ONETIME ONE Stop: 10/19/19 08:47 Last Admin: 10/19/19 08:54 Dose: Not Given Ondansetron HCl (Zofran) 4 mg IVPUSH ONETIME ONE Stop: 10/18/19 04:13 Last Admin: 10/18/19 04:29 Dose: 4 mg Ondansetron HCl (Zofran) 4 mg IVPUSH ONETIME ONE Stop: 10/18/19 05:19 Last Admin: 10/18/19 05:30 Dose: 4 mg Potassium Chloride (Klor-Con M20) 40 meq PO ONETIME ONE Stop: 10/19/19 19:19 Last Admin: 10/19/19 19:47 Dose: 40 meq Thiamine HCl (Vitamin B-1) 100 mg PO ONETIME ONE Stop: 10/20/19 07:50 Last Admin: 10/20/19 08:46 Dose: 100 mg Vancomycin HCl (Vancocin) Confirm Administered Dose 1 gm .ROUTE .STK-MED ONE Stop: 10/18/19 05:19 Last Admin: 10/18/19 05:48 Dose: Not Given <Addie Roy - Last Filed: 10/22/19 23:40> Discharge Summary - Hospital Course Free Text/Narrative:: I have seen and evaluated the patient and agree with the residents note unless specified in my note - Referral to Home Health Primary Care Physician: Waqar Isidro MD - Patient Data Vitals - Most Recent: Last Vital Signs Temp 36.8 C 10/20/19 14:57 Pulse 70 10/20/19 14:57 Resp 17 10/20/19 14:57 BP 154/92 H 10/20/19 14:57 Pulse Ox 99 10/20/19 14:57 Lab Results - Last 24 hrs: Laboratory Results - last 24 hr 10/18/19 Range/Units 05:00 Miscellaneous Test COMMENT SCOTT Results - Last 24 hrs: Microbiology 10/18/19 04:48 Aerobic Blood Culture - Preliminary Blood - Venous - Lab Draw NO GROWTH AFTER 4 DAYS Anaerobic Blood Culture - Final 10/18/19 05:00 Aerobic Blood Culture - Preliminary Blood - Venous NO GROWTH AFTER 4 DAYS Anaerobic Blood Culture - Preliminary NO GROWTH AFTER 4 DAYS Med Orders - Current: Current Medications Discontinued Medications Al Hydroxide/Mg Hydroxide 15 (ml/ Lidocaine HCl 5 ml) 0 ml PO ONETIME ONE Stop: 10/18/19 04:15 Last Admin: 10/18/19 06:53 Dose: Not Given Al Hydroxide/Mg Hydroxide 15 (ml/ Lidocaine HCl 5 ml) 0 ml PO ONETIME ONE Stop: 10/18/19 06:46 Last Admin: 10/18/19 08:51 Dose: 1 each Folic Acid (Folic Acid) 1 mg PO DAILY JON Last Admin: 10/20/19 08:40 Dose: 1 mg Lactated Ringer's (Ringers, Lactated) 1,000 mls @ 1,000 mls/hr IV .BOLUS ONE Stop: 10/18/19 05:11 Last Admin: 10/18/19 05:12 Dose: 1,000 mls/hr Lactated Ringer's (Ringers, Lactated) 1,000 mls @ 1,000 mls/hr IV .BOLUS ONE Stop: 10/18/19 05:25 Last Admin: 10/18/19 05:13 Dose: 1,000 mls/hr Insulin Human Regular 100 unit (/ Sodium Chloride) 100 mls @ 6 mls/hr IV TITRATE JON; Protocol Last Titration: 10/18/19 12:00 Dose: 1 unit/hr, 1 mls/hr Vancomycin HCl 1,000 gm/ (Dextrose/Water) 250 mls @ 167 mls/hr IV ONETIME ONE Stop: 10/18/19 06:28 Last Admin: 10/18/19 06:28 Dose: Not Given Lactated Ringer's (Ringers, Lactated) 1,000 mls @ 250 mls/hr IV ASDIRECTED JON Last Admin: 10/18/19 05:38 Dose: 250 mls/hr Vancomycin HCl 1 gm/ Sodium (Chloride) 250 mls @ 166 mls/hr IV ONETIME ONE Stop: 10/18/19 06:41 Last Admin: 10/18/19 06:21 Dose: 166 mls/hr Ceftriaxone Sodium/Dextrose 1 (gm/ Premix) 50 mls @ 100 mls/hr IV ONETIME ONE Stop: 10/18/19 05:44 Last Admin: 10/18/19 05:29 Dose: 100 mls/hr Sodium Chloride (Normal Saline (Advbag)) Confirm Administered Dose 250 mls @ as directed .ROUTE .STK-MED ONE Stop: 10/18/19 05:19 Last Admin: 10/18/19 06:08 Dose: Not Given Ceftriaxone Sodium/Dextrose (Rocephin In Dextrose,Iso-Osm 1 Gm/50 Ml) Confirm Administered Dose 50 mls @ as directed .ROUTE .STK-MED ONE Stop: 10/18/19 05:20 Last Admin: 10/18/19 05:49 Dose: Not Given Dextrose/Sodium Chloride (Dextrose 5%-Normal Saline) 1,000 mls @ 150 mls/hr IV ASDIRECTED JON Last Admin: 10/18/19 13:30 Dose: 150 mls/hr Insulin Human Regular 100 unit (/ Sodium Chloride) 100 mls @ 1 mls/hr IV TITRATE JON; Protocol Last Titration: 10/19/19 09:17 Dose: 0.5 unit/hr, 0.5 mls/hr Famotidine 20 mg/ Sodium (Chloride) 10 mls @ 300 mls/hr IV DAILY JON Last Admin: 10/20/19 08:46 Dose: 300 mls/hr Sodium Chloride (Normal Saline) 1,000 mls @ 100 mls/hr IV ASDIRECTED [facility] Last Admin: 10/18/19 20:27 Dose: 100 mls/hr Potassium Chloride/Dextrose/Sod Cl (D5 1/2 Ns W/ 40 Meq/L Kcl) 1,000 mls @ 200 mls/hr IV ASDIRECTED JON Last Admin: 10/19/19 03:29 Dose: 200 mls/hr Potassium Chloride/Dextrose/Sod Cl (D5 1/2 Ns W/ 40 Meq/L Kcl) 1,000 mls @ 200 mls/hr IV ASDIRECTED [facility] Last Admin: 10/19/19 09:01 Dose: 200 mls/hr Magnesium Sulfate 2 gm/ Premix 50 mls @ 50 mls/hr IV ONETIME [facility] Last Admin: 10/19/19 09:03 Dose: 50 mls/hr Sodium Chloride (Normal Saline) 1,000 mls @ 100 mls/hr IV STAT ONE Stop: 10/20/19 18:02 Last Admin: 10/20/19 08:25 Dose: 100 mls/hr Multivitamins/Minerals 10 ml/Thiamine HCl 100 mg/ Folic Acid 1 mg/ Sodium Chloride 1,011.2 mls @ 999 mls/hr IV ONETIME ONE Stop: 10/20/19 12:15 Last Admin: 10/20/19 12:02 Dose: 999 mls/hr Insulin Aspart (Novolog) 0 unit SUBCUT TIDAC [facility]; Protocol Last Admin: 10/20/19 12:01 Dose: Not Given Lisinopril (Prinivil) 5 mg PO DAILY JON Last Admin: 10/20/19 14:03 Dose: 5 mg Magnesium Sulfate (Magnesium Sulfate 50%) 1 gm IV ONETIME ONE Stop: 10/19/19 08:47 Last Admin: 10/19/19 08:54 Dose: Not Given Ondansetron HCl (Zofran) 4 mg IVPUSH ONETIME ONE Stop: 10/18/19 04:13 Last Admin: 10/18/19 04:29 Dose: 4 mg Ondansetron HCl (Zofran) 4 mg IVPUSH ONETIME ONE Stop: 10/18/19 05:19 Last Admin: 10/18/19 05:30 Dose: 4 mg Ondansetron HCl (Zofran) 4 mg IVPUSH Q4H PRN PRN Reason: Nausea Potassium Chloride (Klor-Con M20) 40 meq PO ONETIME ONE Stop: 10/19/19 19:19 Last Admin: 10/19/19 19:47 Dose: 40 meq Sodium Chloride (Saline Flush) 10 ml FLUSH ASDIRECTED PRN PRN Reason: Keep Vein Open Last Admin: 10/18/19 08:51 Dose: 10 ml Sodium Chloride (Saline Flush) 2.5 ml FLUSH ASDIRECTED PRN PRN Reason: Keep Vein Open Last Admin: 10/18/19 08:51 Dose: 2.5 ml Sodium Chloride (Normal Saline) 10 ml IV ASDIRECTED PRN PRN Reason: IV Use Thiamine HCl (Vitamin B-1) 100 mg PO ONETIME ONE Stop: 10/20/19 07:50 Last Admin: 10/20/19 08:46 Dose: 100 mg Vancomycin HCl (Vancocin) Confirm Administered Dose 1 gm .ROUTE .STK-MED ONE Stop: 10/18/19 05:19 Last Admin: 10/18/19 05:48 Dose: Not Given
== END 2019-10-20 15:30 | disposition home or self-care (01) | DRG 420 ==
LOC: MW.ED 03:55 → MW.ICU 06:50 → MW.MS 10-20 06:36
PROVIDERS: ADMIT Internal Medicine; ATTEND Internal Medicine
DX: E11.10 Type 2 diabetes mellitus with ketoacidosis without coma (principal); I10 Essential (primary) hypertension; K21.9 Gastro-esophageal reflux disease without esophagitis; F41.9 Anxiety disorder, unspecified; J42 Unspecified chronic bronchitis; N17.9 Acute kidney failure, unspecified; F17.210 Nicotine dependence, cigarettes, uncomplicated; E86.0 Dehydration; G35 Multiple sclerosis; D53.9 Nutritional anemia, unspecified; R74.8 Abnormal levels of other serum enzymes; Z88.0 Allergy status to penicillin; Z91.013 Allergy to seafood; Z87.440 Personal history of urinary (tract) infections
CPT/HCPCS: 36415; 71045; 71045-26; 80048; 80053; 80305-QW; 80307; 81001; 82009; 82040; 82247; 82272; 82550; 82607; 82746; 82803; 82962; 83036; 83605; 83690; 83735; 83930; 84075; 84100; 84155; 84443; 84450; 84460; 84484; 84703; 85025; 85045; 87040; 87045; 87046; 87324; 87493; 87899; 88104; 93005; 96365; 96367; 96375; 96376; 99285-25; 99291; A9270-GY; J0696; J1815-GY; J2405; J3370; J3411; J3475; J3480; J3490; J7030; J7042; J7050; J7120